=== PATIENT | male | born 1960 | race Caucasian/White ===

== ENCOUNTER 2019-08-16 10:13 | Outpatient (CLI) | payer OTHER, SELFPAY ==
--- NOTE | ~2019-08-16 | US_ITS ---
US soft tissue head and neck 08/16/2019 10:56 Indication: Supraclavicular swelling for one year Procedure: High-resolution bilateral supraclavicular soft tissue ultrasound Comparison: No prior studies for comparison. Findings: In the right supraclavicular region there are 2 lymph nodes measuring 9 x 8 x 4 and 10 x 7 x 4 mm respectively, both with normal fatty hilum. In the left supraclavicular region there is a lymp h node measuring 11 x 4 x 5 mm with fatty hilum. No fluid collections. Impression: 1: Normal-appearing bilateral supraclavicular lymph nodes which are likely benign reactive lymph node s in the absence of known malignancy. Consider correlation with contrast-enhanced CT neck. Reviewed, dictated and finalized at location A. SSORIES REPAIRER Impression: 1: Normal-appearing bilateral supraclavicular lymph nodes which are likely ruy gn reactive lymph nodes in the absence of known malignancy. Consider correlatio n with contrast-enhanced CT neck.
== END 2019-08-16 10:14 | disposition home or self-care (01) ==
LOC: ANHIMG 10:19
PROVIDERS: PCP Family Medicine Adolescent Medicine; Visit Provider Physician Assistant
DX: R22.2 Localized swelling, mass and lump, trunk (principal)
CPT/HCPCS: 76536

== ENCOUNTER 2020-02-04 12:55 | Outpatient (CLI) | payer OTHER, SELFPAY ==
--- NOTE | ~2020-02-04 | US_ITS ---
EXAMINATION: US renal BI DATE: 02/04/2020 13:31 INDICATION: Stage III chronic kidney disease. TECHNIQUE: Multiple ultrasound grayscale images of the kidneys were obtained. COMPARISON: CT dated 03/25/2019 FINDINGS: The right kidney measures 10.8 x 5.4 x 6.8 cm. The left kidney measures 10.3 x 4.8 x 5.0 cm. The kidn eys demonstrate normal echogenicity. Is cortical thinning at both kidneys, mild on the right and mode rate on the left. There is no hydronephrosis in either kidney. No stones identified. The bladder and prostate are unremarkable. IMPRESSION: 1. Bilateral renal cortical atrophy, mild on the right and moderate on the left. No hydronephrosis. Reviewed, dictated and finalized at location A. IMPRESSION: 1. Bilateral renal cortical atrophy, mild on the right and moderate on the lef t. No hydronephrosis.
== END 2020-02-04 12:56 | disposition home or self-care (01) ==
PROVIDERS: PCP Family Medicine Adolescent Medicine; Visit Provider Internal Medicine Nephrology
DX: N18.3 Chronic kidney disease, stage 3 (moderate) (principal); N26.1 Atrophy of kidney (terminal)
CPT/HCPCS: 76775

== ENCOUNTER 2020-03-30 11:12 | Outpatient (CLI) | payer OTHER, SELFPAY ==
--- NOTE | ~2020-03-30 | XR_ITS ---
XR hip RT min 2V DATE: 03/30/2020 11:39 INDICATION: Right hip pain, numbness. No injury. TECHNIQUE: AP, lateral, crosstable lateral views right hip COMPARISON: None FINDINGS: No fracture or dislocation, avascular necrosis or bone destruction of the right hip. Hip kera int space is well preserved. The pubic symphysis and included right sacroiliac joint are intact. IMPRESSION: No significant abnormality Reviewed, dictated and finalized at location A. IMPRESSION: No significant abnormality
== END 2020-03-30 11:13 | disposition home or self-care (01) ==
PROVIDERS: PCP Family Medicine Adolescent Medicine; Visit Provider Family Medicine Adolescent Medicine
DX: M25.551 Pain in right hip (principal)
CPT/HCPCS: 73502

== ENCOUNTER 2020-04-08 09:20 | Outpatient (CLI) | payer OTHER, SELFPAY ==
--- NOTE | ~2020-04-08 | MR_ITS ---
EXAMINATION: MR lumbar spine wo con DATE: 04/08/2020 10:03 INDICATION: Right leg paresthesias. Radiculopathy. Low back pain. TECHNIQUE: Magnetic resonance imaging (MRI) of the lumbar spine was performed without intravenous con trast. Sequences included sagittal T2-weighted FSE, sagittal T2-weighted FS FSE, sagittal T1-weighted FSE, and axial T2-weighted FSE. COMPARISON: None FINDINGS: There is 5 degrees levocurvature of lumbar spine. Vertebral body heights are normal. There is mildly decreased disc height at L3-L4. The distal spinal cord signal intensity is normal. The conu s medullaris is at L1. The following disc levels are specifically discussed: L1-L2: The disc does not extend beyond the endplate margin. There is mild bilateral facet joint osteo arthritis. There is no neural foraminal stenosis. There is no central canal stenosis. L2-L3: The disc is mildly bulging. There is mild bilateral facet joint osteoarthritis. There is mild bilateral neural foraminal stenosis. There is no central canal stenosis. L3-L4: The disc is bulging and has an annular fissure. There is moderate bilateral facet joint osteoa rthritis. There is mild bilateral neural foraminal stenosis. There is mild central canal stenosis. L4-L5: The disc is bulging. There is severe bilateral facet joint osteoarthritis. There is mild bilat eral neural foraminal stenosis. There is mild central canal stenosis. L5-S1: The disc is bulging. There is severe right and moderate left facet joint osteoarthritis. There is mild bilateral neural foraminal stenosis. There is mild central canal stenosis. IMPRESSION: 1. Mild lumbar spondylosis. Reviewed, dictated and finalized at location A. IMPRESSION: 1. Mild lumbar spondylosis.
== END 2020-04-08 09:21 | disposition home or self-care (01) ==
PROVIDERS: PCP Family Medicine Adolescent Medicine; Visit Provider Physician Assistant
DX: R20.2 Paresthesia of skin (principal); M47.26 Other spondylosis with radiculopathy, lumbar region
CPT/HCPCS: 72148

== ENCOUNTER 2020-08-05 10:24 | Outpatient (CLI) | payer OTHER, SELFPAY ==
--- NOTE | 2020-08-05 11:00 | NEURO_ITS ---
Impression: # Complains of numbness of lower extremities. # Bilateral peroneal neuropathy. # Abnormal needle/EMG exam in bilateral EDB. # Clinical correlation recommended; Higher involvement needs to be ruled out. Nerve Conduction Studies Anti Sensory Summary Table Stim Site NR Peak (ms) P-T Amp (?V) Site1 Site2 Delta-P (ms) Dist (cm) Darinel (m/s) Left Sup Fibular Anti Sensory (Ant Lat Mall) DISPERSED RESPONSE 14 cm NR 14 cm Ant Lat Mall 16.0 Right Sup Fibular Anti Sensory (Ant Lat Mall) 14 cm 6.7 19.5 14 cm Ant Lat Mall 6.7 16.0 24 Left Sural Anti Sensory (Lat Mall) NO RESPONSE Calf NR Calf Lat Mall 16.0 Right Sural Anti Sensory (Lat Mall) Calf 6.0 8.3 Calf Lat Mall 6.0 16.0 27 Motor Summary Table Stim Site NR Onset (ms) O-P Amp (mV) Site1 Site2 Delta-0 (ms) Dist (cm) Darinel (m/s) Left Peroneal Motor (Vastus Med) NO RESPONSE Ankle NR Popit Ankle 0.0 Popit NR Right Peroneal Motor (Vastus Med) NO RESPONSE Ankle NR Popit Ankle 0.0 Popit NR Left Tibial Motor (Abd Agosto Brev) Ankle 5.1 6.1 Knee Ankle 10.2 43.0 42 Knee 15.3 3.7 Right Tibial Motor (Abd Agosto Brev) Ankle 4.8 4.7 Knee Ankle 10.2 44.0 43 Knee 15.0 3.4 F Wave Studies NR F-Lat (ms) L-R F-Lat (ms) Left Peroneal (Mrkrs) (EDB) 58.83 3.86 Right Peroneal (Mrkrs) (EDB) 62.69 3.86 Left Tibial (Mrkrs) (Abd Hallucis) 57.31 0.03 Right Tibial (Mrkrs) (Abd Hallucis) 57.35 0.03 EMG Side Muscle Nerve Root Ins Act Fibs Amp Dur Recrt Comment Right AntTibialis Dp Br Fibular L4-5 Nml Nml Nml Nml Nml Right Gastroc Tibial S1-2 Nml Nml Nml Nml Nml Right Fibularis Long Sup Br Fibular L5-S1 Nml Nml Nml Nml Nml Right Flex Dig Long Tibial L5-S2 Nml Nml Nml Nml Nml Right Ext Dig Brev Dp Br Fibular L5, S1 Nml Nml Nml Nml Reduced Left AntTibialis Dp Br Fibular L4-5 Nml Nml Nml Nml Nml Left Gastroc Tibial S1-2 Nml Nml Nml Nml Nml Left Fibularis Long Sup Br Fibular L5-S1 Nml Nml Nml Nml Nml Left Flex Dig Long Tibial L5-S2 Nml Nml Nml Nml Nml Left Ext Dig Brev Dp Br Fibular L5, S1 Nml Nml Nml Nml Reduced Right QuadratusFem QuadFemoris L4-5, S1 Nml Nml Nml Nml Nml Left QuadratusFem QuadFemoris L4-5, S1 Nml Nml Nml Nml Nml MTDD
== END 2020-08-05 10:25 | disposition home or self-care (01) ==
LOC: ANHNEURO 10:25
PROVIDERS: PCP Family Medicine Adolescent Medicine; Visit Provider Psychiatry & Neurology Neurology
DX: R20.2 Paresthesia of skin (principal); G62.9 Polyneuropathy, unspecified; R94.131 Abnormal electromyogram [EMG]
CPT/HCPCS: 95886; 95910

== ENCOUNTER 2020-09-07 11:59 | Outpatient (CLI) | payer OTHER, SELFPAY ==
--- NOTE | ~2020-09-07 | XR_ITS ---
XR lumbar spine 2-3V DATE: 09/07/2020 12:27 INDICATION: Low back pain radiating to right hip TECHNIQUE: AP, lateral, coned lateral lumbosacral views COMPARISON: 04/08/2020 MRI lumbar spine FINDINGS: Slight levoscoliosis. There is mild degenerative disc disease and moderate spurring of the lumbar spine. No fracture or bone destruction. The lumbar pedicles are intact. No spondylolisthesis. The sacroiliac joints appear normal. IMPRESSION: Mild degenerative disc disease Reviewed, dictated and finalized at location A.
== END 2020-09-07 12:00 | disposition home or self-care (01) ==
PROVIDERS: PCP Family Medicine Adolescent Medicine; Visit Provider Psychiatry & Neurology Neurology
DX: M51.36 Other intervertebral disc degeneration, lumbar region (principal)
CPT/HCPCS: 72100

== ENCOUNTER 2020-10-21 09:59 | Emergency (ER) | payer OTHER, SELFPAY ==
--- NOTE | ~2020-10-21 | XR_ITS ---
EXAMINATION: XR elbow LT min 3V EXAM DATE: 10/21/2020 10:16 INDICATION: Fall one week ago. Left elbow pain. Initial encounter. TECHNIQUE: Left elbow frontal, lateral with flexion, and oblique projections obtained and reviewed. There is no prior study for comparison. FINDINGS: Left elbow anterior humeral line intact. There are no acute fractures or dislocations bal ntified. There is no subcutaneous gas. There is soft tissue swelling over the elbow posterior medial ly. There are no radiopaque foreign bodies. IMPRESSION: 1. Left elbow exam without acute osseous findings. 2. Soft tissue swelling. Reviewed, dictated and finalized at location A.
[2020-10-21 10:06] VITALS: BP 162/97; PULSE 67; RESP 16; TEMP 36.7; O2SAT 96
--- NOTE | 2020-10-21 10:43 | ED.UPPEXIN ---
HPI - Extremity Injury (Upper) General Chief Complaint: Extremity Injury, Upper Stated Complaint: L ARM INJURY Source: patient and RN notes reviewed Limitations: no limitations History of Present Illness HPI narrative: The right-handed patient, who is a smoker/nondrinker on several meds [not diabetics], presents with left elbow pain. Patient states he has a history and work-up for syncope and late last week, 5d ago had a typical episode where he slipped and struck his left elbow against his car-resulting in a dent. No bleeding, deformity, fever , redness/streaking, abscess/induration/fluctuance, skin abrasion known; he developed increasing pain and redness the last couple days-which is associated with definite small scab at the olecranon. Orthopedic is remarkable for on Vicodin for hip discomfort- and he says he doesn't get enough ; he has elbow pain disproportionate to appearance .Discussed possible causes with the patient [infectious, posttraumatic, etc.] will treat broadly with antibiotics and prompt follow-up with orthopedics [will be called]. Related Data Home Medications Medication Instructions Recorded Confirmed amlodipine 10/21/20 fenofibrate nanocrystallized mg PO 10/21/20 hydrocodone-acetaminophen 10/21/20 lisinopril 10/21/20 metoprolol tartrate 10/21/20 Allergies Allergy/AdvReac Type Severity Reaction Status Date / Time morphine Allergy Severe Unverified 03/14/17 18:56 Penicillins Allergy Unknown Verified 03/14/17 13:58 Review of Systems Review of Systems: Narrative: General/Constitutional: No weight loss,fever Eyes: N0: Redness,discharge Ears/Nose/Throat: No: Epistaxis,ear discharge Respiratory: Denies: Hemoptysis Gastrointestinal: No Vomiting, Bleeding-rectal Skin: No Lumps, REPORTS eruption Neurologic: No Focal Weakness,Sz Hematologic: Denies: Petechiae/Purpura Psychiatric: No: Suicida ideationl All Other Systems: Reviewed and Negative [facility] Family History Family History (Updated 03/22/17 @ 14:50 by DOCTOR UNKNOWN) Other Diabetes mellitus Hypertension Social History Social History Smoking status: Current every day smoker Alcohol intake: never Comments At time of signature, agree with nursing past medical, surgical, social and family history. There is no relevant family history pertinent to the presenting complaint Exam Narrative: Exam Narrative: General Appearance: aged/older appearing, Well nourished, No distress EYE: PERRLA, EOMI, Conjunctiva clear Ears: External ear normal, Auditory canal normal Nose: Normal nose, Nares clear Mouth/Throat: Normal appearing, Normal lips Neck: Supple Respiratory: Airway patent, No respiratory distress Skin: Palm-sized areas very mild redness with central dry scabbing at olecranon; otherwise warm, Dry, Normal color MS elbow: Normal strength (mostly intact, limited flexion/extension by pain), Tenderness (olecranon, with mod decreased ROM), Swelling (olecrenon), Other (no anterior drawer, no collateral laxity, ) Neurological: A&O x3, Speech clear, CN II-XII intact Psychiatric: Normal mood, Normal affect Course Course Emergency Course: Films visualized, interpreted by radiologist, agree, normal see report [provided the patient]. Vital Signs Vital signs: Vital Signs Temperature 98.1 F 10/21/20 10:06 Pulse Rate 67 10/21/20 10:06 Respiratory Rate 16 10/21/20 10:06 Blood Pressure 162/97 H 10/21/20 10:06 Pulse Oximetry 96 10/21/20 10:06 Temperature 98.1 F 10/21/20 10:06 Pulse Rate 67 10/21/20 10:06 Respiratory Rate 16 10/21/20 10:06 Blood Pressure 162/97 H 10/21/20 10:06 Pulse Oximetry 96 10/21/20 10:06 Discharge Plan Discharge Clinical Impression: Olecranon bursitis, Hx of syncope, Cellulitis Patient Disposition: Home, Self-Care Condition: Stable Instructions: Antibiotic Form, Elbow Bursitis (ED) Additional Instructions: See orthopedics without fail, call to conf
[2020-10-21] MEDS: cefTRIAXone 1 GM VIAL 0.75 GM IM (11:00)
== END 2020-10-21 11:26 | disposition home or self-care (01) ==
PROVIDERS: Emergency Provider Emergency Medicine; PCP Family Medicine Adolescent Medicine
DX: M70.22 Olecranon bursitis, left elbow (principal); L03.114 Cellulitis of left upper limb; F17.200 Nicotine dependence, unspecified, uncomplicated
CPT/HCPCS: 73080; 96372; 99213; A4565; G0463; J0696

== ENCOUNTER 2021-01-02 18:33 | Emergency (ER) | payer OTHER, SELFPAY ==
[2021-01-02 18:36] VITALS: BP 156/85; PULSE 67; RESP 16; TEMP 36.8; O2SAT 98
--- NOTE | 2021-01-02 18:36 | ED.EYEPROB ---
HPI - Eye Problem General Chief complaint: Eye Problems Stated complaint: eye redness/swelling Time Seen by Provider: 01/02/21 18:36 Source: patient and RN notes reviewed History of Present Illness HPI Narrative: Patient is a 60-year-old male who presents the urgent care with complaints of left eye swelling and redness. Patient states that it started on Monday and he has been using a warm compress to the eye. Patient reports of some matting and clear drainage. Patient denies any vision changes. Denies of any known trauma or injury to the eye. Denies any fever, chills, nausea, vomiting. No other acute complaints. No acute distress noted. Patient aware of the plan of care. Some parts of this dictation were generated by voice recognition software and may contain typographical and/or grammatical inaccuracies. Related Data Home Medications Medication Instructions Recorded Confirmed amlodipine 10/21/20 12/29/20 fenofibrate nanocrystallized mg PO 10/21/20 12/29/20 hydrocodone-acetaminophen 10/21/20 12/29/20 lisinopril 10/21/20 12/29/20 metoprolol tartrate 10/21/20 12/29/20 aspirin 81 mg tablet,delayed 81 mg PO DAILY 10/30/20 12/29/20 release Allergies Allergy/AdvReac Type Severity Reaction Status Date / Time morphine Allergy Severe Unknown Verified 12/29/20 11:00 Penicillins Allergy Unknown Unknown Verified 12/29/20 11:00 Review of Systems Review of Systems: Narrative: CONSTITUTIONAL: Denies fever, chills, or sweats. EYES: Denies visual changes. Reports of left upper eyelid swelling, redness and clear drainage ENT: Denies rhinorrhea, congestion, sore throat, or otalgia. CARDIOVASCULAR: Denies chest pain, palpitations, or edema. RESPIRATORY: Denies cough or dyspnea. GASTROINTESTINAL: Denies abdominal pain, nausea, vomiting, or diarrhea. GENITOURINARY: Denies dysuria or hematuria. SKIN: Denies rash or itching. MUSCULOSKELETAL: Denies back pain, joint pain, or myalgia. NEUROLOGIC: Denies headache, numbness, or weakness. All other systems reviewed are negative, except as documented in HPI. [facility] Past Medical History Medical History Coughing Dizziness Hair loss High cholesterol History of DVT (deep vein thrombosis) Hypertension Kidney disease Olecranon bursitis of left elbow SOB (shortness of breath) Stroke Wears glasses Weight gain Wheezing Family History Family History Other Cerebrovascular accident Diabetes mellitus Heart disease High cholesterol Hypertension Kidney disorder Social History Social History Smoking packs per day: 1 Smoking cigarettes per day: 20.0 Years smoked: 40 Smoking pack-years: 40.00 Tobacco type: cigarettes Alcohol intake: never Substance use: former Substance use type: does not use and crack/cocaine Gender identity (if verbalized by the patient): Male Comments At the time of my signature, I reviewed and agree with the nursing past medical, surgical, social, and family history. There is no relevant family history pertinent to the patient complaint. Exam Narrative: Exam Narrative: GENERAL: This is a well-nourished, well-developed patient, in no apparent distress. HEAD: normocephalic, atraumatic. EYES: PERRL. Sclera clear/white. Vision is grossly intact. Mild to moderate edema and erythema noted to the left upper eyelid with a notable external hordeolum to the center of the left upper eyelid. Moderate clear drainage from the left eye. No obvious injury noted EARS: External ears normal NOSE: External nose normal with no obvious nasal discharge, nares without redness, no rhinorrhea. THROAT: Mucous membranes moist NECK: Neck supple CARDIOVASCULAR: Regular rate and rhythm RESPIRATORY: Clear to auscultation. Breath sounds equal bilaterally. No wheezes, rales, or rhonchi. SKIN: warm, intact
== END 2021-01-02 18:50 | disposition home or self-care (01) ==
PROVIDERS: Emergency Provider Nurse Practitioner Family; PCP Family Medicine Adolescent Medicine
DX: H05.012 Cellulitis of left orbit (principal); H00.014 Hordeolum externum left upper eyelid; F17.210 Nicotine dependence, cigarettes, uncomplicated; E78.00 Pure hypercholesterolemia, unspecified; Z86.73 Personal history of transient ischemic attack (TIA), and cerebral infarction without residual deficits
CPT/HCPCS: 99213; G0463

== ENCOUNTER 2021-04-27 10:34 | Outpatient (CLI) | payer OTHER, SELFPAY ==
--- NOTE | ~2021-04-27 | XR_ITS ---
EXAMINATION: XR chest 2V DATE: 04/27/2021 10:49 INDICATION: Shortness of breath TECHNIQUE: PA and lateral views of the chest are obtained. COMPARISON: 11/15/2016 FINDINGS: The lungs are free of acute opacities. There is no pleural effusion or pneumothorax. The ca rdiomediastinal silhouette is normal. There is moderate thoracic spondylosis. IMPRESSION: 1. No acute cardiopulmonary abnormality. Reviewed, dictated and finalized at location B.
== END 2021-04-27 10:35 | disposition home or self-care (01) ==
LOC: ANHIMG 10:39
PROVIDERS: PCP Family Medicine Adolescent Medicine; Visit Provider Physician Assistant
DX: R06.02 Shortness of breath (principal)
CPT/HCPCS: 71046

== ENCOUNTER 2021-04-30 23:15 | Inpatient (IN) | payer OTHER, SELFPAY ==
--- NOTE | ~2021-04-30 | XR_ITS ---
XR chest 1V portable DATE: 04/30/2021 23:35 INDICATION: Intermittent right chest pain for one day, worsening this evening. Hypertension. TECHNIQUE: Portable AP chest on 04/30/2021 at 2330 hours COMPARISON: 04/27/2021 PA and lateral chest FINDINGS: Borderline heart size. There is pulmonary vascular prominence and probable redistribution w hich may indicate pulmonary venous hypertension. There is mild/moderate elevation of the right diaphragm. No pulmonary infiltrate or consolidation, pleural effusion or pneumothorax. IMPRESSION: Borderline or increased heart size, pulmonary vascular congestion and redistribution. Mil d congestive changes are suggested Reviewed, dictated and finalized at location A. IMPRESSION: Borderline or increased heart size, pulmonary vascular congestion a nd redistribution. Mild congestive changes are suggested
[2021-04-30 23:12] VITALS: BP 183/99; PULSE 70; RESP 18; TEMP 36.4; O2SAT 94
--- NOTE | 2021-04-30 23:18 | ECG_ITS ---
Measurements Intervals [place] Rate: 69 P: 43 LA: 197 QRS: 1 QRSD: 97 T: -5 QT: 396 QTc: 426 Interpretive Statements SINUS RHYTHM POSSIBLE LEFT ATRIAL ENLARGEMENT DELAYED PRECORDIAL R/S TRANSITION ST ELEVATION IN SEPTAL LEADS WITH PEAKED T WAVES- CONSIDER ACUTE INJURY HIGH LATERAL ST ELEVATION MYOCARDIAL INJURY- ACUTE BASELINE ARTIFACT- I, II, III, AVR, AVL, AVF, V1-V6 ABNORMAL ECG Electronically Signed On 05-04-2021 7:48:06 PERCUSSION WELDING MACHINE OPERATOR by Navid Sinclair D.O.
[2021-04-30 23:26] VITALS: O2SAT 97
--- NOTE | 2021-04-30 23:27 | ED.CHESTPAIN ---
HPI - Chest Pain General Chief Complaint: Chest Pain Stated Complaint: r sided chest pain Source: RN notes reviewed History of Present Illness HPI narrative: Patient presents emergency department from home via EMS for chest pain. Patient states has been having intermittent chest pain since last night pain is located on the right side of the chest just to the right of the midline describes a pressure in nature states the pain got worse approximately 30 minutes ago. Associate with mild shortness of breath he denies any fevers or chills cough abdominal pain nausea vomiting denies any previous cardiac history states he has had a history of a previous stroke and is on aspirin patient states he did take his evening medication just before EMS arrival states he took his metoprolol Related Data Home Medications Medication Instructions Recorded Confirmed amlodipine 10/21/20 12/29/20 fenofibrate nanocrystallized mg PO 10/21/20 12/29/20 hydrocodone-acetaminophen 10/21/20 12/29/20 lisinopril 10/21/20 12/29/20 metoprolol tartrate 10/21/20 12/29/20 aspirin 81 mg tablet,delayed 81 mg PO DAILY 10/30/20 12/29/20 release Allergies Allergy/AdvReac Type Severity Reaction Status Date / Time morphine Allergy Severe Unknown Verified 04/30/21 23:38 Penicillins Allergy Unknown Unknown Verified 04/30/21 23:38 Review of Systems Review of Systems: Gen.: Denies fevers or chills ENT: Denies congestion Respiratory: Denies shortness of breath or cough CV: See HPI GI: Denies abdominal pain nausea, emesis or diarrhea Musculoskeletal: Denies back pain or muscle pain Neuro: Denies numbness, tingling, weakness or focal weakness Skin: Denies rash Except as documented, all other systems reviewed and negative [facility] Past Medical History Medical History Coughing Dizziness Hair loss High cholesterol History of DVT (deep vein thrombosis) Hypertension Kidney disease Olecranon bursitis of left elbow SOB (shortness of breath) Stroke Wears glasses Weight gain Wheezing Family History Family History Other Cerebrovascular accident Diabetes mellitus Heart disease High cholesterol Hypertension Kidney disorder Social History Social History Smoking packs per day: 1 Smoking cigarettes per day: 20.0 Years smoked: 40 Smoking pack-years: 40.00 Tobacco type: cigarettes Alcohol intake: never Substance use: former Substance use type: does not use and crack/cocaine Gender identity (if verbalized by the patient): Male Exam Narrative: APPEARANCE: No acute distress, nontoxic, resting in bed EYES: EOMI HEENT: Normocephalic, atraumatic, OMM RESPIRATORY: No respiratory distress Clear to auscultation bilaterally with no rhonchi wheezing or rales. CARDIOVASCULAR: Regular rate and rhythm without murmurs rubs or gallops. ABDOMINAL: Soft, nontender, nondistended, no rebound or guarding MUSCULOSKELETAl: Moves all extremities. No clubbing, cyanosis or edema. NEURO: Awake and alert. Following commands, speech normal, no focal deficits SKIN:: Warm, dry. No rashes lesions or abrasions PSYCHIATRIC: Normal affect/mood, Course Course Emergency Course: Code STEMI declared upon evaluation of initial EKG Called and discussed Dr. Clement will come to ED to take patient to [facility] request patient received heparin in ED Patient and family updated on plan for [facility] all questions answered Vital Signs Vital signs: Vital Signs Temperature 97.6 F 04/30/21 23:12 Pulse Rate 70 04/30/21 23:12 Respiratory Rate 18 04/30/21 23:12 Blood Pressure 183/99 H 04/30/21 23:12 Pulse Oximetry 94 04/30/21 23:12 Temperature 97.6 F 04/30/21 23:12 Pulse Rate 74 04/30/21 23:49 Respiratory Rate 18 04/30/21 23:49 Blood Pressure 167/110 H 04/30/21 23:49 Pulse Oximetry 98
[2021-04-30] MEDS: ASPIRIN 81 MG CHEWABLE TABLET 324 MG PO (23:29)
[2021-04-30 23:35] LABS: Basophils Percent Auto 0.5 % (0.2-1.2); Eosinophils Absolute Auto 0.2 K/mm3 (0-0.3); Hematocrit 49.5 % (42.0-52.0); Hemoglobin 16.5 g/dL (14.0-18.0); Immature Granulocyte Absolute 0.03 K/mm3 (0.00-0.031); Immature Granulocyte Percent A 0.4 % (0-0.5); Lymphocytes Absolute Auto 3.42 K/mm3 (0.9-3.2); Lymphocytes Percent Auto 44.8 % (18.3-44.2); Mean Corpuscular HGB Conc 33.3 g/dl (32-36); Mean Corpuscular Hemoglobin 31.1 pg (26-34); Mean Corpuscular Volume 93.4 fl (80-100); Mean Platelet Volume 10.4 fl (7.4-10.4); Monocytes Absolute Auto 0.8 K/mm3 (0.1-0.6); Monocytes Percent Auto 9.9 % (2.6-8.5); Neutrophils Absolute Auto 3.2 K/mm3 (1.3-6.7); Neutrophils Percent Auto 42.4 % (45.5-73.1); Platelet Count Result 269 k/mm3 (150-375); Red Cell Distribution Width 13.6 % (11.5-14.5); White Blood Count 7.6 K/mm3 (4.5-10.0)
[2021-04-30 23:41] VITALS: BP 181/96; PULSE 64; RESP 22; O2SAT 98
[2021-04-30 23:48] LABS: Alanine Aminotransferase 24 U/L (4-50); Alkaline Phosphatase 70 U/L (38-126); Anion Gap 13 mmol/L (8-16); Aspartate Amino Transferase 29 U/L (17-59); Bilirubin,Total 0.5 mg/dL (0.2-1.3); Blood Urea Nitrogen 30 mg/dL (9-20); Carbon Dioxide 22 mmol/L (22-30); Chloride 106 mmol/L (98-107); Estimated CRCL calculation 46 ml/min; Estimated Glomerular Filt Rate 34; Glucose 119 mg/dL (65-110); Potassium 3.9 mmol/L (3.4-5.0); Sodium 141 mmol/L (137-145)
[2021-04-30 23:49] VITALS: BP 167/110; PULSE 74; RESP 18; O2SAT 98
[2021-04-30] MEDS: MORPHINE SULFATE (*CRX) 2 MG/ML INJ IV PUSH (23:53)
[2021-04-30 23:59] LABS: Prothrombin Time 13.2 Seconds (11.1-14.7)
[2021-05-01] VITALS (23 sets, daily range): BP systolic 102–166; BP diastolic 72–99; PULSE 55–73; RESP 12–24; TEMP 36.3–37.2; O2SAT 93–98; BMI 30.3
[2021-05-01] LABS: Partial Thromboplastin Time 26.4 SECONDS (22.3-36.8)
[2021-05-01 00:06] LABS: Troponin I 0.084 ng/mL (0.000-0.034)
--- NOTE | 2021-05-01 00:10 | WPDHPUPDATE1 ---
History and Physical Update Update Date/Time: 05/01/21 00:10 History and Physical has been reviewed, including an updated exam of the patient. There are NO changes in the patient's condition. Risks, benefits, and alternatives have been discussed and questions answered. Patient agrees to proceed with procedure.
--- NOTE | 2021-05-01 00:10 | WPDMODSED ---
Moderate Sedation Note-Pt Data Patient Data Allergies Allergy/AdvReac Type Severity Reaction Status Date / Time morphine Allergy Severe Unknown Verified 04/30/21 23:38 Penicillins Allergy Unknown Unknown Verified 04/30/21 23:38 Home Medications Medication Instructions Recorded Confirmed Type acetaminophen-codeine 1 - 2 tablet PO HS PRN #10 tablet 10/21/20 12/29/20 Rx amlodipine 10/21/20 12/29/20 History fenofibrate nanocrystallized mg PO 10/21/20 12/29/20 History hydrocodone-acetaminophen 10/21/20 12/29/20 History lisinopril 10/21/20 12/29/20 History metoprolol tartrate 10/21/20 12/29/20 History tramadol 50 - 75 mg PO TID PRN #15 tablet 10/21/20 12/29/20 Rx aspirin 81 mg tablet,delayed 81 mg PO DAILY 10/30/20 12/29/20 History release doxycycline hyclate 100 mg capsule 100 mg PO BID #20 cap 12/01/20 12/29/20 Rx clindamycin HCl 300 mg PO Q6H 7 Days #28 cap 01/02/21 Rx polymyxin B sulf-trimethoprim 1 drp LEFT EYE Q3H 7 Days #10 ml 01/02/21 Rx [Polytrim] Sedation/Anesthesia: No previous sedation/anesthesia problems (including family history). [facility] Past Medical History Medical History Coughing Dizziness Hair loss High cholesterol History of DVT (deep vein thrombosis) Hypertension Kidney disease Olecranon bursitis of left elbow SOB (shortness of breath) Stroke Wears glasses Weight gain Wheezing Family History Family History Other Cerebrovascular accident Diabetes mellitus Heart disease High cholesterol Hypertension Kidney disorder Social History Social History Smoking packs per day: 1 Smoking cigarettes per day: 20.0 Years smoked: 40 Smoking pack-years: 40.00 Tobacco type: cigarettes Alcohol intake: never Substance use: former Substance use type: does not use and crack/cocaine Gender identity (if verbalized by the patient): Male Mod Sed Physical Exam Physical Exam Pre Procedural Exam: Normal: Appearance, Eyes, Ears, Nose, Neck, Throat, Airway, Lungs, Heart Size, Heart Rate, Heart Rhythm, Neuro Exam, Abdomen, Liver, Kidneys, Spleen, Breasts, Genitalia, Extremities and Skin Hours since solid foods: 8 Hours since liquid intake: 8 Mallampati Classification: class 1 Internal Medicine - PN: Obj Da Vital Signs Vital Signs: Vital Signs - 24 hr 04/30/21 23:12 04/30/21 23:26 04/30/21 23:41 Temperature 36.4 C Pulse Rate 70 64 Respiratory Rate 18 22 H Blood Pressure 183/99 H 181/96 H Pulse Oximetry 94 97 98 04/30/21 23:49 Temperature Pulse Rate 74 Respiratory Rate 18 Blood Pressure 167/110 H Pulse Oximetry 98 Meds/Results Radiology Results: ITS Impressions Chest X-Ray 04/30/21 23:36 IMPRESSION: Borderline or increased heart size, pulmonary vascular congestion and redistribution. Mild congestive changes are suggested Labs CBC & Chem 7: 04/30/21 23:30 04/30/21 23:30 Labs: Laboratory Results - last 24 hr 04/30/21 04/30/21 04/30/21 23:30 23:30 23:30 WBC 7.6 RBC 5.30 Hgb 16.5 Hct 49.5 MCV 93.4 MCH 31.1 MCHC 33.3 RDW 13.6 Plt Count 269 MPV 10.4 Immature Gran % (Auto) 0.4 Neut % (Auto) 42.4 L Lymph % (Auto) 44.8 H Archuleta % (Auto) 9.9 H Eos % (Auto) 2.0 Baso % (Auto) 0.5 Lymph # (Auto) 3.42 H Archuleta # (Auto) 0.8 H Eos # (Auto) 0.2 Baso # (Auto) 0.0 Abs Immat Gran (auto) 0.03 Absolute Neuts (auto) 3.2 Absolute Nucleated RBC 0.0 Nucleated RBC % 0.0 PT 13.2 INR 1.0 APTT 26.4 Sodium 141 Potassium 3.9 Chloride 106 Carbon Dioxide 22 Anion Gap 13 BUN 30 H Creatinine 2.00 H Estim Creat Clear Calc 46 Estimated GFR 34 L Glucose 119 H Calcium 10.0 Total Bilirubin 0.5 AST 29 ALT 24 Alkaline Phosphatase 70 Troponin I
--- NOTE | 2021-05-01 00:10 | WPDCARDPROC ---
Cardiac Cath Procedure Note Date of procedure:: 05/01/21 Performing physician:: Kallie Coffey MD date of service 05/01/2021 Indication:: anterior STEMI Brief clinical history:: 61-year-old patient with history of tobacco use, stroke and chronic kidney disease stage 3 with creatinine of 2 who presents here for chest pain that started 1 day however it has increased in the last 1 hour in severity. his pain is in the right side of the chest. Associated with shortness of breath. Was found to have ST elevations in leads V1, V2, V3. Patient arrived on the labor representative table and while he was in the labor representative table went into ventricular fibrillation and successfully defibrillated using 200 joule shock with baptism of normal sinus rhythm and baptism of mental status. Was given amiodarone 150 mg IV bolus. Procedure Procedure performed:: 2-Selective left and right coronary angiogram. 3-Left heart catheterization with measurement of LVEDP and measurement of gradient across aortic valve. 4 deployment of a drug-eluting stent 2.75 x 18 covering mid LAD. Deployment under nominal pressure for 26 seconds. Post dilatation of the proximal and mid stent using 3 x 8 noncompliant balloon. 4-Right common femoral arterial angiogram. 5-Deployment of 6 Burmese Angio-Seal. Sedation/Medication given:: Moderate sedation. Access site:: Right common femoral artery. Estimated blood loss:: 10cc Procedure note:: After informed consent patient was brought in to labor representative with the was draped and prepped in usual manner. Moderate sedation was given and the right groin was infiltrated using 1% lidocaine. six Burmese sheath was obtained using micropuncture needle and the modified Seldinger technique. Selective left coronary angiogram was done using Guide catheter CLS 3.5with the tip of the catheter placed in the left main coronary artery. after that the coronary wire was advanced to distal LAD and balloon angioplasty of mid LAD was done using 2.5 by 15 balloon with 2 inflations each and intervention for 15 seconds. after that deployed a drug-eluting stent 2.75 x 18 under normal pressure for 26 seconds and then post dilatation of the stent using 3 x 8 noncompliant balloon with inflation under normal pressure for 25 seconds each. Selective right coronary angiogram was done using JR4 catheter with the tip of the catheter placed to the right coronary artery. After that 5 Burmese pigtail catheter was advanced across the aortic valve into the left ventricle with measurement of LVEDP and measurement of gradient across aortic valve. Right common femoral arterial angiogram was done. Findings:: 1- left coronary artery is a large artery that divides into large LAD, large circumflex artery. Left mainHas distal 40% lesion. 2- left anterior descending artery is a large artery that runs and wraps around the apex. in the mid segment there is a tight about 95% lesion with LETICIA flow 2 in the LAD. Distal LAD is diffusely disease 60%. 3- leftcircumflex artery is a large artery And dominant. Diffuse irregularities. Small OM1 branch that has diffuse proximal 70% and medium-size OM2 that has mid 80%. Left PDA has about 50-60% lesion. 4- right coronary artery is Small artery and non dominant and has diffuse 70% stenosis. 5- LVEDP was 25 mm Hg and no gradient across aortic valve. 6- opening arterial pressure was 160/80and closing pressure was 130/70 7- right femoral artery angiogram shows no significant disease in the right common femoral artery. Conclusion:: 1- Successful stenting of mid LAD using drug-eluting stent culprit lesion for the STEMI. 2- diffuse disease distal LAD 60-70%, artery size is relatively small. 3- high grades or OM1 branch, medium-sized OM2 branch. 50% left PDA 4- High-grade stenosis in nondominant RCA Assessment and Plan Additional Plan - continue aspirin and Brilinta. - aggressive risk factor modification for CAD. - tobacco cessation
--- NOTE | 2021-05-01 00:13 | PM.IMHP ---
H&P: HPI History of Present Illness Date/Time: 05/01/21 00:13 Date of service [birth year] 01, 2000 Chief Complaint: chest pain Narrative: 61-year-old patient with history of tobacco use, stroke and chronic kidney disease stage 3 with creatinine of 2 who presents here for chest pain that started 1 day however it has increased in the last 1 hour in severity. his pain is in the right side of the chest. Associated with shortness of breath. Was found to have ST elevations in leads V1, V2, V3. Patient arrived on the phlebotomist medical lab assistant table and while he was in the phlebotomist medical lab assistant table went into ventricular fibrillation and successfully defibrillated using 200 joule shock with holiness of normal sinus rhythm and holiness of mental status. Was given amiodarone 150 mg IV bolus. Review of Systems Review of Systems: All systems reviewed & are unremarkable except as noted in HPI and below Constitutional: Constitutional: Denies chills, Denies fatigue, Denies fever(s), Denies headache(s) and Denies snoring Eyes: Eyes: Denies eye discharge and Denies loss of vision ENT: Denies dizziness, Denies headache(s), Denies nasal discharge and Denies sore throat Cardiovascular: Cardiovascular: Reports as per HPI, Reports chest pain, Denies syncope, Denies rapid heart rate, Denies leg edema, Reports dyspnea, Reports dyspnea on exertion, Denies orthopnea and Denies paroxysmal nocturnal dyspnea Respiratory: Respiratory: Denies chest congestion, Denies cough, Reports dyspnea, Reports dyspnea on exertion, Denies snoring and Denies wheezing Gastrointestinal: Gastrointestinal: Denies abdominal pain, Denies diarrhea, Denies nausea and Denies vomiting Genitourinary: Genitourinary: Denies hematuria, Denies dysuria, Denies flank pain and Denies urinary frequency Musculoskeletal: Musculoskeletal: Denies myalgias, Denies arthralgias and Denies joint swelling Neurologic: Denies Abnormal speech present, Denies dizziness, Denies syncope, Denies headache(s), Denies focal weakness and Denies loss of vision Psychiatric: Psychiatric: Denies anxiety and Denies depression Endocrine: Endocrine: Denies cold intolerance, Denies fatigue and Denies heat intolerance Hematologic/Lymphatic: Hematologic/Lymphatic: Denies easy bleeding and Denies easy bruising Allergic/Immunologic: Allergic/Immunologic: Denies urticaria and Denies wheezing PMFSH Past Medical History Medical History Coughing Dizziness Hair loss High cholesterol History of DVT (deep vein thrombosis) Hypertension Kidney disease Olecranon bursitis of left elbow SOB (shortness of breath) Stroke Wears glasses Weight gain Wheezing Family History Family History Other Cerebrovascular accident Diabetes mellitus Heart disease High cholesterol Hypertension Kidney disorder Social History Social History Smoking packs per day: 1 Smoking cigarettes per day: 20.0 Years smoked: 40 Smoking pack-years: 40.00 Tobacco type: cigarettes Alcohol intake: never Substance use: former Substance use type: does not use and crack/cocaine Gender identity (if verbalized by the patient): Male Meds Home Medications and Allergies Home Medications Medication Instructions Recorded Confirmed Type acetaminophen-codeine 1 - 2 tablet PO HS PRN #10 tablet 10/21/20 12/29/20 Rx amlodipine 10/21/20 12/29/20 History fenofibrate nanocrystallized mg PO 10/21/20 12/29/20 History hydrocodone-acetaminophen 10/21/20 12/29/20 History lisinopril 10/21/20 12/29/20 History metoprolol tartrate 10/21/20 12/29/20 History tramadol 50 - 75 mg PO TID PRN #15 tablet 10/21/20 12/29/20 Rx aspirin 81 mg tablet,delayed 81 mg PO DAILY 10/30/20 12/29/20 History release doxycycline hyclate 100 mg capsule 100 mg PO BID #20 cap 12/01/20 12/29/20 Rx clindamycin HCl 300 mg PO Q6
--- NOTE | 2021-05-01 01:48 | ECG_ITS ---
Measurements Intervals [place] Rate: 60 P: 58 NM: 204 QRS: 29 QRSD: 101 T: 64 QT: 440 QTc: 442 Interpretive Statements SINUS RHYTHM SUPRAVENTRICULAR TRIGEMINY DELAYED PRECORDIAL R/S TRANSITION BORDERLINE ST-T WAVE ABNORMALITY- ANTEROLAT/INF LEADS BASELINE ARTIFACT- I, II, III, AVR, AVL, AVF, V1-V6 ABNORMAL ECG Electronically Signed On 05-01-2021 8:32:30 CDT by Navid Sinclair D.O.
[2021-05-01] MEDS: ONDANSETRON INJ 4 MG/2 ML VIAL (01:52)
--- NOTE | 2021-05-01 02:59 | WPDHPUPDATE1 ---
History and Physical Update Update Date/Time: 05/01/21 02:59 History and Physical has been reviewed, including an updated exam of the patient. There are NO changes in the patient's condition. Risks, benefits, and alternatives have been discussed and questions answered. Patient agrees to proceed with procedure.
--- NOTE | 2021-05-01 03:00 | WPDMODSED ---
Moderate Sedation Note-Pt Data Patient Data Allergies Allergy/AdvReac Type Severity Reaction Status Date / Time morphine Allergy Severe Unknown Verified 04/30/21 23:38 Penicillins Allergy Unknown Unknown Verified 04/30/21 23:38 Home Medications Medication Instructions Recorded Confirmed Type acetaminophen-codeine 1 - 2 tablet PO HS PRN #10 tablet 10/21/20 12/29/20 Rx amlodipine 10/21/20 12/29/20 History fenofibrate nanocrystallized mg PO 10/21/20 12/29/20 History hydrocodone-acetaminophen 10/21/20 12/29/20 History lisinopril 10/21/20 12/29/20 History metoprolol tartrate 10/21/20 12/29/20 History tramadol 50 - 75 mg PO TID PRN #15 tablet 10/21/20 12/29/20 Rx aspirin 81 mg tablet,delayed 81 mg PO DAILY 10/30/20 12/29/20 History release doxycycline hyclate 100 mg capsule 100 mg PO BID #20 cap 12/01/20 12/29/20 Rx clindamycin HCl 300 mg PO Q6H 7 Days #28 cap 01/02/21 Rx polymyxin B sulf-trimethoprim 1 drp LEFT EYE Q3H 7 Days #10 ml 01/02/21 Rx [Polytrim] Current Medications: Active Medications Hydrocodone Bitart/Acetaminophen (Hydrocodone/Acetaminophen (*Crx) 5-325 Mg Tablet) 1 tab PO Q4-6H PRN PRN Reason: Pain Rated 1-3 Al Hydrox/Mg Hydrox/Simethicone (Mag Hydrox/Al Hydrox/Simeth 30 Ml Udc) 30 ml PO Q4H PRN PRN Reason: Indigestion Aspirin (Aspirin 81 Mg Enteric Tablet) 81 mg PO QAM SHIRA Atorvastatin Calcium (Atorvastatin 40 Mg Tablet) 40 mg PO DAILY SHIRA Sodium Chloride (Normal Saline Iv) 1,000 mls @ 125 mls/hr IV CONT .Q8H ONE Stop: 05/01/21 09:47 Nitroglycerin (Nitroglycerin Sl 0.4 Mg Tablet) 0.4 mg SUBLINGUAL Q5MIN PRN PRN Reason: Chest Pain Ondansetron HCl (Ondansetron Hcl Odt 4 Mg Tablet) 4 mg PO Q4-6H PRN PRN Reason: Nausea Stop: 05/02/21 01:47 SERVICE [employer] CONTACT Ticagrelor (Ticagrelor 90 Mg Tablet) 90 mg PO Q12HR [facility] Sedation/Anesthesia: No previous sedation/anesthesia problems (including family history). [facility] Past Medical History Medical History Coughing Dizziness Hair loss High cholesterol History of DVT (deep vein thrombosis) Hypertension Kidney disease Olecranon bursitis of left elbow SOB (shortness of breath) Stroke Wears glasses Weight gain Wheezing Family History Family History Other Cerebrovascular accident Diabetes mellitus Heart disease High cholesterol Hypertension Kidney disorder Social History Social History Smoking packs per day: 1 Smoking cigarettes per day: 20.0 Years smoked: 40 Smoking pack-years: 40.00 Tobacco type: cigarettes Alcohol intake: never Substance use: former Substance use type: does not use and crack/cocaine Gender identity (if verbalized by the patient): Male Mod Sed Physical Exam Physical Exam Pre Procedural Exam: Normal: Appearance, Eyes, Ears, Nose, Neck, Throat, Airway, Lungs, Heart Size, Heart Rate, Heart Rhythm, Neuro Exam, Abdomen, Liver, Kidneys, Spleen, Breasts, Genitalia, Extremities and Skin Hours since solid foods: 8 Hours since liquid intake: 8 Mallampati Classification: class 1 Internal Medicine - PN: Obj Da Vital Signs Vital Signs: Vital Signs - 24 hr 04/30/21 23:12 04/30/21 23:26 04/30/21 23:41 Temperature 36.4 C Pulse Rate 70 64 Respiratory Rate 18 22 H Blood Pressure 183/99 H 181/96 H Pulse Oximetry 94 97 98 04/30/21 23:49 05/01/21 00:12 Temperature Pulse Rate 74 73 Respiratory Rate 18 22 H Blood Pressure 167/110 H 160/98 H Pulse Oximetry 98 98 Meds/Results Medications: Active Medications Generic Name Dose Route Start Last Admin Trade Name Freq PRN Reason Stop Dose Admin Hydrocodone Bitart/Acetaminophen 1 tab 05/01/21 01:48 Hydrocodone/Acetaminophen (*Crx) 5-325 Mg Tablet PO Q4-6H PRN Pain Rated 1-3 Al Hydrox/Mg Hydrox/Simethicone 30 ml 05/01/21 01:48 Mag Hydrox/Al Hydrox/Simeth 30 Ml Udc PO
--- NOTE | 2021-05-01 03:00 | WPDCARDPROC ---
Cardiac Cath Procedure Note Date of procedure:: 05/01/21 Performing physician:: Kallie Coffey MD Indication:: Anterior STEMI Brief clinical history:: this 61-year-old patient who just received mid LAD stent because of anterior STEMI. When he arrived to the ICU he started to have crushing central chest pain and EKG shows recurrence of anterior ST-elevation. he was rushed back to the corn lab technician to define coronary anatomy. Procedure Procedure performed:: 1-Selective left coronary angiogram. 2- deployment of a drug-eluting stent 2.5x12 to mid LAD overlapping the mid LAD stent and distal to it. Deployment under normal pressure for 25 seconds and then the stent balloon was used to post dilate the overlap segment and 20 atmospheres for 20 seconds. And then after that postdilatation done using 3 x 20 noncompliant balloon and the 16 atmospheres for 25 seconds. Two inflations. Sedation/Medication given:: Moderate sedation. Access site:: Right common femoral artery. Estimated blood loss:: 10cc Procedure note:: After informed consent patient was brought in to corn lab technician. The left groin was infiltrated using 1% lidocaine. then after that selective left coronary angiogram was done using CLS 3.5 guide catheter. Coronary luge wire was advanced to distal LAD. [place] catheter was past and 1 when done. Then after that balloon angioplasty of the stent using 3 x 15 noncompliant balloon with 2 inflations each under 12 atmospheres for 3 per seconds. Will notice some haziness distal to the stent and therefore we elected to cover it using 2.5 x 12 drug-eluting stent deployed at the nominal pressure for 25 seconds and the balloon was used to post dilate overlapt segment under 20 atmospheres for 25 seconds. and then post dilatation of the overlap segment using 3 x 20 noncompliant balloon with inflation to 16 atmospheres for 25 seconds Findings:: 1- left coronary artery is a large artery that divides into large LAD, large circumflex artery. Left main distal 40%. 2- left anterior descending artery is a large artery A totally occluded at the level of the mid LAD stent with LETICIA flow 0. Conclusion:: In stent thrombosis status post balloon angioplasty and deployment of another drug-eluting stent to mid LAD. Assessment and Plan Additional Plan - Continue aspirin and Brilinta. - will start Integrilin drip for the next 12 hours.
--- NOTE | 2021-05-01 03:39 | ECG_ITS ---
Measurements Intervals [place] Rate: 62 P: -31 VA: 149 QRS: -3 QRSD: 97 T: -19 QT: 427 QTc: 436 Interpretive Statements SINUS RHYTHM VENTRICULAR PREMATURE COMPLEX POSSIBLE LEFT ATRIAL ENLARGEMENT EXTENSIVE ANTERIOR ST ELEVATION MYOCARDIAL INJURY- ACUTE HIGH LATERAL ST ELEVATION MYOCARDIAL INJURY- ACUTE BASELINE ARTIFACT- I, II, III, AVR, AVL, AVF, V4-V6 ABNORMAL ECG Electronically Signed On 05-01-2021 8:29:55 CDT by Navid Sinclair D.O.
--- NOTE | 2021-05-01 04:14 | ADMGEN ---
This patient, Frederick Jarvis, was admitted to Intensive Care Unit-6. Patient/family oriented to hospital policies and general routines including ID bracelet, bed and alarms, visiting hours, pain management, procedures, bathroom and other care routines, personal items, smoking policy, room service/diet, and visiting hours. Information on how to activate the Rapid Response Team has been discussed. Patient/Family are encouraged to report perceived risks to care and to ask questions if they do not understand what they are told or what they should do.
[2021-05-01 05:25] LABS: Basophils Percent Auto 0.4 % (0.2-1.2); Eosinophils Percent Auto 0.3 % (0-4.4); Hematocrit 42.2 % (42.0-52.0); Hemoglobin 13.3 g/dL (14.0-18.0); Immature Granulocyte Absolute 0.04 K/mm3 (0.00-0.031); Immature Granulocyte Percent A 0.4 % (0-0.5); Lymphocytes Absolute Auto 1.79 K/mm3 (0.9-3.2); Lymphocytes Percent Auto 19.6 % (18.3-44.2); Mean Corpuscular HGB Conc 31.5 g/dl (32-36); Mean Corpuscular Hemoglobin 30.9 pg (26-34); Mean Corpuscular Volume 97.9 fl (80-100); Mean Platelet Volume 10.6 fl (7.4-10.4); Monocytes Absolute Auto 0.6 K/mm3 (0.1-0.6); Neutrophils Absolute Auto 6.6 K/mm3 (1.3-6.7); Neutrophils Percent Auto 72.3 % (45.5-73.1); Platelet Count Result 243 k/mm3 (150-375); Red Blood Count 4.31 M/mm3 (4.6-6.20); Red Cell Distribution Width 13.4 % (11.5-14.5); White Blood Count 9.1 K/mm3 (4.5-10.0)
[2021-05-01 05:58] LABS: Anion Gap 51 mmol/L (8-16); Blood Urea Nitrogen 22 mg/dL (9-20); Calcium 4.4 mg/dL (8.4-10.2); Carbon Dioxide 13 mmol/L (22-30); Chloride 85 mmol/L (98-107); Cholesterol 141 mg/dL (0-200); Estimated CRCL calculation 75 ml/min; Estimated Glomerular Filt Rate > 60; Glucose 101 mg/dL (65-110); HDL Direct 20 mg/dL; Potassium 3.4 mmol/L (3.4-5.0); Sodium 149 mmol/L (137-145); Triglycerides 222 mg/dL (<150)
[2021-05-01 06:02] LABS: LDL Cholesterol Direct 89 mg/dL
[2021-05-01] MEDS: ONDANSETRON INJ 4 MG/2 ML VIAL IV PUSH (07:35)
[2021-05-01] MEDS: SODIUM CHLORIDE 0.9% IV 500 ML 125 ML (07:50)
[2021-05-01] MEDS: EPTIFIBATIDE 0.75 MG/ML 75 MG/100 ML VIAL 17.23 MG IV CONT ×2 (07:51→13:25)
[2021-05-01] MEDS: lisinopriL 20 MG TABLET 40 MG PO (08:39)
[2021-05-01] MEDS: ATORVASTATIN 40 MG TABLET PO (08:40)
[2021-05-01] MEDS: TICAGRELOR 90 MG TABLET PO ×2 (08:40→20:30)
[2021-05-01] MEDS: ASPIRIN 81 MG ENTERIC TABLET PO (08:40)
--- NOTE | 2021-05-01 10:22 | WPDCNINT ---
Assessment and Plan Assessment and plan (1) ST elevation (STEMI) myocardial infarction: Code(s): I21.3 - ST elevation (STEMI) myocardial infarction of unspecified site Status: Acute Assessment and Plan: Status post PCI and dual stent placement to LAD Dual antiplatelet therapy Continue beta-eufemia statin, lisinopril check echocardiogram (2) Kidney disease: Code(s): N28.9 - Disorder of kidney and ureter, unspecified Status: Acute Assessment and Plan: Last recorded creatinine the chart is 1.9 in 2019 and he presented with creatinine of 2. He was started on IV fluids post procedure for renal protection to try to minimize worsening of chronic kidney disease BMP this morning shows creatinine of 1.2 but the number suggest that this is an error. I will repeat BMP now Monitor urine output and electrolytes (3) Hypertension: Code(s): I10 - Essential (primary) hypertension Status: Inactive Assessment and Plan: Beta-eufemia, Norvasc, lisinopril (4) Hyperlipemia: Code(s): E78.5 - Hyperlipidemia, unspecified Status: Acute Assessment and Plan: Statin and fenofibrate (5) Chronic back pain: Code(s): M54.9 - Dorsalgia, unspecified; G89.29 - Other chronic pain Status: Acute Assessment and Plan: P.joy Fuentes (6) Tobacco abuse: Code(s): Z72.0 - Tobacco use Status: Acute Assessment and Plan: Patient was counseled and strongly encouraged to quit smoking for 3-5 minutes Additional Plan DVT prophylaxis -SCDs in bed, patient should be able to ambulate today Cardiac diet Transfer out of ICU today Delivery Driver Consult Note Consult date: 05/01/21 HPI: Frederick Jarvis is a 61 year old male with history of tobacco use, stroke and chronic kidney disease stage 3 with creatinine of 2 who presents last night to ED with chest pain that started 1 day however it has increased in severity prior to presentation. CP s/w shortness of breath. He was diagnosed with STEMI and taken to slab puller. He underwent Successful stenting of mid LAD using drug-eluting stent culprit lesion for the STEMI. While he was in the slab puller , he went into ventricular fibrillation and successfully defibrillated using 200 joule shock with rastafarian of normal sinus rhythm and rastafarian of mental status. He was also given amiodarone 150 mg IV bolus. Few hours later on arrival to ICU, he started to have crushing central chest pain and EKG shows recurrence of anterior ST-elevation. He was taken back to the slab puller to define coronary anatomy. LAD stent was occluded with In stent thrombosis and he underwent post balloon angioplasty and deployment of another drug-eluting stent to mid LAD. Admitted to ICU post procedure. Patient told me that he had chest pain all the yesterday which was coming and going. Patient was in the mid chest and radiated to his back, 10/10 severe, burning in quality, associated with shortness of breath nausea and sweating. It started while he was watching the TV. During the course of the day the pain became worse hence he came to ER. In resolved completely after 2nd procedure. Currently he denies any chest pain shortness of breath and feels fine. No nausea vomiting abdominal pain diarrhea constipation headache palpitations. Review of system was positive for back pain which is chronic and has been exacerbated by laying in bed. All the systems were reviewed and were negative He has received coronavirus vaccine [employer] Review of Systems Review of Systems: All systems reviewed & are unremarkable except as noted in HPI and below (HPI) [facility] Past Medical History Medical History (Updated 05/01/21 @ 11:21 by Lobo Carbajal MD) Chronic back pain Cirrhosis Coughing Dizziness Hair loss Hepatitis C High cholesterol History of DVT (deep vein thrombosis) Patient denies any history of DVT or being on any anticoagulation Hypertension Kidney disease Olecrano
[2021-05-01] MEDS: HYDROcodone/acetaminophen (*CRX) 5-325 MG TABLET 1 TAB PO (11:11)
--- NOTE | 2021-05-01 11:16 | PM.PNCARD ---
Progress Note: A&P Assessment and Plan (1) ST elevation (STEMI) myocardial infarction: Code(s): I21.3 - ST elevation (STEMI) myocardial infarction of unspecified site Status: Acute Assessment and Plan: Status post anterior STEMI with acute stent thrombosis requiring immediate repeat angiography and balloon angioplasty. Patient now stable, asymptomatic and doing well. Continue dual antiplatelet therapy and Integrilin for 12 hours as directed by Dr. Coffey. Continue to monitor in ICU today. Repeat 12 lead EKG. 2D echocardiogram. DVT prophylaxis with SCDs. (2) Hypocalcemia: Code(s): E83.51 - Hypocalcemia Status: Acute Assessment and Plan: Repeat calcium level for confirmation. Severely hypocalcemic at 4.4. (3) Kidney disease: Code(s): N28.9 - Disorder of kidney and ureter, unspecified Status: Acute Assessment and Plan: Renal function improved since admission. Continue to follow BMP. Monitor volume status. (4) Hyperlipemia: Code(s): E78.5 - Hyperlipidemia, unspecified Status: Acute Assessment and Plan: LDL 89 goal less than 70. Atorvastatin 40 mg at bedtime (5) Tobacco abuse: Code(s): Z72.0 - Tobacco use Status: Acute Assessment and Plan: Immediate and absolute smoking cessation counseling. Subjective Date/time seen: Date of service: 05/01/21 11:16 Follow-up status post anterior STEMI Patient denies chest pain or shortness of breath. Hemodynamically stable. Maintaining sinus rhythm heart rate 60 beats per minute. No significant discomfort at bilateral groin access sites. Patient had post intervention stent thrombosis acutely with recurrent ST elevations prompting repeat coronary angiogram with angioplasty which was successful. Patient is currently on Integrilin with plans for 12 hour duration. Review of Systems Review of Systems: All systems reviewed & are unremarkable except as noted in HPI and below Constitutional: Constitutional: Reports as per HPI, Denies chills, Reports fatigue, Denies fever(s), Denies headache(s) and Denies snoring Eyes: Eyes: Reports as per HPI, Denies eye discharge and Denies loss of vision ENT: Reports as per HPI, Denies dizziness, Denies headache(s), Denies nasal discharge and Denies sore throat Cardiovascular: Cardiovascular: Reports as per HPI, Denies chest pain, Denies syncope, Denies rapid heart rate, Denies leg edema, Reports dyspnea, Reports dyspnea on exertion, Denies orthopnea and Denies paroxysmal nocturnal dyspnea Respiratory: Respiratory: Reports as per HPI, Denies chest congestion, Denies cough, Denies dyspnea, Denies dyspnea on exertion, Denies snoring and Denies wheezing Gastrointestinal: Gastrointestinal: Reports as per HPI, Denies abdominal pain, Denies diarrhea, Denies nausea and Denies vomiting Genitourinary: Genitourinary: Reports as per HPI, Denies hematuria, Denies dysuria, Denies flank pain and Denies urinary frequency Musculoskeletal: Musculoskeletal: Reports as per HPI, Denies myalgias, Denies arthralgias and Denies joint swelling Integumentary/Breasts: Skin/Breast: Reports as per HPI Neurologic: Reports as per HPI, Denies Abnormal speech present, Denies dizziness, Denies syncope, Denies headache(s), Denies focal weakness and Denies loss of vision Psychiatric: Psychiatric: Reports as per HPI, Denies anxiety and Denies depression Endocrine: Endocrine: Reports as per HPI, Denies cold intolerance, Denies fatigue and Denies heat intolerance Hematologic/Lymphatic: Hematologic/Lymphatic: Denies easy bleeding and Denies easy bruising Allergic/Immunologic: Allergic/Immunologic: Denies urticaria and Denies wheezing Exam Const: General: cooperative, healthy appearing, comfortable, no acute distress and well developed Nutritional Appearance: well nourished Orientation/consciousness: patient oriented x3 HENMT: Head: normal to inspection, normocephalic and atraumatic Ears: hearin
--- NOTE | 2021-05-01 11:35 | ECHO_ITS ---
Patient Info Name: Frederick Jarvis Age: 61 years : 1960 Gender: Male Ht: 74 in Wt: 236 lbs BSA: 2.39 m2 HR: 59 bpm BP: 143 / 88 mmHg Heart Rhythm: Bradycardia, Sinus Rhythm Technical Quality: Fair Exam Date: 05/01/2021 2:09 PM Exam Location: [facility] Pulmonary Exam Room: ICU6 Patient Status: Inpatient Admit Date: 04/30/2021 Staff Ordering Physician: Donnell Schilling MD Butter Production Supervisor: Gaviota Valera RDCS Attending Provider: Kallie Coffey MD Referring Physician: Shakir PRICE; Exam Type: CA echo doppler color flow Study Info Indications - CHEST PAIN STEMI S/P CATH Complete two-dimensional, color flow and Doppler transthoracic echocardiogram is performed. Summary 1. Left ventricular chamber dimension is normal. 2. Left ventricular systolic function is mildly reduced, estimated at 50% with hypokinetic apex and akinetic apical septum. . 3. There is moderately increased left ventricular wall thickness. 4. The left ventricular diastolic function is grade I diastolic dysfunction. 5. There is mild mitral valve regurgitation. 6. There is no aortic valve stenosis. 7. Although clearly identified thrombus at LV apex, cannot definitively exclude due to forshortened images and trabeculations. Consider repeat limited study with contrast enhancement. Left Ventricle Left ventricular chamber dimension is normal. Left ventricular systolic function is mildly reduced, estimated at 50% with hypokinetic apex and akinetic apical septum. . There is moderately increased left ventricular wall thickness. The left ventricular diastolic function is grade I diastolic dysfunction. Although clearly identified thrombus at LV apex, cannot definitively exclude due to forshortened images and trabeculations. Consider repeat limited study with contrast enhancement. Right Ventricle Right ventricular chamber dimension is normal. Right ventricular systolic function is normal. Left Atria Left atrial chamber dimension is normal. Right Atria Right atrial chamber dimension is normal. Aortic Valve The aortic valve is trileaflet. There is no aortic valve stenosis. There is no aortic valve regurgitation. Pulmonic Valve The pulmonic valve is not well visualized. There is trace pulmonic regurgitation. Mitral Valve The mitral valve has normal leaflets. There is mild mitral valve regurgitation. The mitral valve annulus is mildly calcified. Tricuspid Valve The tricuspid valve leaflets are normal. There is trace tricuspid valve regurgitation. No pulmonary hypertension, estimated pulmonary arterial systolic pressure is 30 mmHg. Pericardium/Pleural The pericardium appears normal. There is no pericardial effusion. Inferior Vena Cava Normal inferior vena cava with >50% collapse upon inspiration consistent with normal right atrial pressure, 5 mmHg. Aorta The aortic root size at the sinus of Valsalva is normal. There is mild aortic atherosclerosis. Left Ventricular Outflow Tract Name Value Normal LVOT 2D LVOT Diameter 2.1 cm LVOT Doppler LVOT Peak Gradient 4 mmHg LVOT Mean Gr
--- NOTE | 2021-05-01 11:39 | ECG_ITS ---
Measurements Intervals [place] Rate: 61 P: -7 [place]: 164 QRS: 33 QRSD: 102 T: 132 QT: 490 QTc: 495 Interpretive Statements SINUS RHYTHM DELAYED PRECORDIAL R/S TRANSITION T WAVE ABNORMALITY IN ANTEROLAT/HIGH LAT LEADS- CONSIDER ISCHEMIA ABNORMAL ECG Electronically Signed On 05-01-2021 16:24:22 CDT by Navid Sinclair D.O.
[2021-05-01] MEDS: amLODIPine BESYLATE 5 MG TABLET 10 MG PO (12:10)
[2021-05-01] MEDS: METOPROLOL TARTRATE 50 MG TAB PO ×2 (12:10→20:30)
[2021-05-01] MEDS: FENOFIBRATE NANOCRYSTALLIZED 145 MG TABLET PO (12:10)
[2021-05-01 12:25] LABS: Hemoglobin A1C 5.6 % (<5.7)
[2021-05-01 15:12] LABS: Calcium 9.1 mg/dL (8.4-10.2)
[2021-05-02] VITALS (13 sets, daily range): BP systolic 122–148; BP diastolic 58–84; PULSE 57–67; RESP 16–24; TEMP 36.4–37.2; O2SAT 94–99
[2021-05-02] MEDS: HYDROcodone/acetaminophen (*CRX) 5-325 MG TABLET 1 TAB PO ×2 (00:08→17:50)
--- NOTE | 2021-05-02 02:05 | PC.NURSE ---
Daylight Savings Time For Daylight Savings Time Ending in the Fall - Clocks are moved back. For Daylight Savings Time Beginning in the Spring - Clocks are moved ahead. For [facility], the time of change occurs at 0200 hrs. Time is taken from the windows server support technician. This entry on the patient's chart recognizes the change in time reflected during documentation. Example: 2 entries for vital signs may be charted for 0200 hrs.
[2021-05-02 05:09] LABS: Hematocrit 43.2 % (42.0-52.0); Hemoglobin 14.1 g/dL (14.0-18.0); Mean Corpuscular HGB Conc 32.6 g/dl (32-36); Mean Corpuscular Hemoglobin 30.1 pg (26-34); Mean Corpuscular Volume 92.1 fl (80-100); Mean Platelet Volume 10.5 fl (7.4-10.4); Platelet Count Result 236 k/mm3 (150-375); Red Blood Count 4.69 M/mm3 (4.6-6.20); Red Cell Distribution Width 13.5 % (11.5-14.5); White Blood Count 8.4 K/mm3 (4.5-10.0)
[2021-05-02 05:21] LABS: Alanine Aminotransferase 22 U/L (4-50); Alkaline Phosphatase 47 U/L (38-126); Anion Gap 8 mmol/L (8-16); Aspartate Amino Transferase 65 U/L (17-59); Bilirubin,Total 0.7 mg/dL (0.2-1.3); Blood Urea Nitrogen 22 mg/dL (9-20); Calcium 8.9 mg/dL (8.4-10.2); Carbon Dioxide 23 mmol/L (22-30); Chloride 106 mmol/L (98-107); Estimated CRCL calculation 58 ml/min; Estimated Glomerular Filt Rate 52; Glucose 103 mg/dL (65-110); Potassium 3.7 mmol/L (3.4-5.0); Sodium 137 mmol/L (137-145)
[2021-05-02] MEDS: amLODIPine BESYLATE 5 MG TABLET 10 MG PO (08:48)
[2021-05-02] MEDS: FENOFIBRATE NANOCRYSTALLIZED 145 MG TABLET PO (08:48)
[2021-05-02] MEDS: ASPIRIN 81 MG ENTERIC TABLET PO (08:48)
[2021-05-02] MEDS: lisinopriL 20 MG TABLET 40 MG PO (08:48)
[2021-05-02] MEDS: ATORVASTATIN 40 MG TABLET PO (08:49)
[2021-05-02] MEDS: TICAGRELOR 90 MG TABLET PO ×2 (08:49→20:02)
--- NOTE | 2021-05-02 10:41 | PM.PNCARD ---
Progress Note: A&P Assessment and Plan (1) ST elevation (STEMI) myocardial infarction: Code(s): I21.3 - ST elevation (STEMI) myocardial infarction of unspecified site Status: Acute Assessment and Plan: Status post anterior STEMI with acute stent thrombosis requiring immediate repeat angiography and balloon angioplasty. Patient now stable, asymptomatic and doing well. Continue dual antiplatelet therapy and Integrilin for 12 hours as directed by Dr. Coffey. -DVT prophylaxis with SCDs. -aspirin 81 mg daily, Brilinta 90 mg twice daily, atorvastatin 40 mg at bedtime -continue beta-eufemia as tolerated. Discussed the importance beta-eufemia therapy as tolerated for reduction subsequent myocardial infarction, benefit with anginal symptoms as tolerated. Patient verbalized understanding. -2D echo EF 50% hypokinetic apex, akinetic apical septum no clear thrombus but cannot be excluded. Limited echo with contrast in a.m.. Discussed with patient who verbalized understanding. Stable to transfer out of ICU to med telemetry today. Anticipate discharge home tomorrow if stable overnight without significant bradycardia or ventricular tachycardia. (2) Bradycardia: Code(s): R00.1 - Bradycardia, unspecified Status: Acute Assessment and Plan: Reduce metoprolol 12.5 mg twice daily. Monitor tolerance. Monitor for nonsustained ventricular tachycardia. Suspect may need to increase back to 25 mg twice daily prior to discharge depending on heart rate and ventricular arrhythmias. (3) NSVT (nonsustained ventricular tachycardia): Code(s): I47.2 - Ventricular tachycardia Status: Acute Assessment and Plan: Transient, asymptomatic nonsustained VT. As above. Beta-blockers as tolerated. Telemetry (4) Hypocalcemia: Code(s): E83.51 - Hypocalcemia Status: Acute Assessment and Plan: Repeat calcium level normalized, previous low value of 4.4 lab error as suspected. (5) Kidney disease: Code(s): N28.9 - Disorder of kidney and ureter, unspecified Status: Acute Assessment and Plan: Renal function improved since admission. Continue to follow BMP. Monitor volume status. (6) Hyperlipemia: Code(s): E78.5 - Hyperlipidemia, unspecified Status: Acute Assessment and Plan: LDL 89 not ideally controlled, goal less than 70. Atorvastatin 40 mg at bedtime (7) Tobacco abuse: Code(s): Z72.0 - Tobacco use Status: Acute Assessment and Plan: Immediate and absolute smoking cessation counseling. Subjective Date/time seen: Date of service: 05/02/21 10:41 Follow-up for anterior ST-elevation AR Denies chest pain or shortness of breath. Completed Integrilin without incident yesterday afternoon. Had brief nonsustained VT on telemetry as well as periodic bradycardia and 3.2nd pause overnight. Metoprolol held this morning. Feels okay, somewhat fatigued. Review of Systems Review of Systems: All systems reviewed & are unremarkable except as noted in HPI and below Constitutional: Constitutional: Reports as per HPI, Denies chills, Denies fatigue, Denies fever(s), Denies headache(s) and Denies snoring Eyes: Eyes: Reports as per HPI, Denies eye discharge and Denies loss of vision ENT: Reports as per HPI, Denies dizziness, Denies headache(s), Denies nasal discharge and Denies sore throat Cardiovascular: Cardiovascular: Reports as per HPI, Denies chest pain, Denies syncope, Denies rapid heart rate, Denies leg edema, Denies dyspnea, Denies dyspnea on exertion, Denies orthopnea and Denies paroxysmal nocturnal dyspnea Respiratory: Respiratory: Reports as per HPI, Denies chest congestion, Denies cough, Denies dyspnea, Denies dyspnea on exertion, Denies snoring and Denies wheezing Gastrointestinal: Gastrointestinal: Reports as per HPI, Denies abdominal pain, Denies diarrhea, Denies nausea and Denies vomiting Genitourinary: Genitourinary: Reports as per HPI, Jorge
--- NOTE | 2021-05-02 13:46 | PC.NURSE ---
This patient, Frederick Jarvis, was transferred to [[id number] ] on 05/02/21 at 1340. Personal belongings sent with patient. Report given to [ Nina]. Appropriate documentation sent with patient.
--- NOTE | 2021-05-02 13:54 | PC.NURSE ---
This patient, Frederick Jarvis, was received from ICU on 05/02/21 at 1340. Patient/family oriented to unit policies and routines
--- NOTE | 2021-05-02 19:16 | PC.NURSE ---
Dr. Bains notified that patient heart rate dropped to 38 on tele and then jumped back up to the 60's, new orders. Pt was sleeping
[2021-05-02] MEDS: METOPROLOL TARTRATE 12.5 MG TABLET PO (20:02)
[2021-05-03] VITALS (8 sets, daily range): BP systolic 140–155; BP diastolic 70–83; PULSE 62–77; RESP 16–20; TEMP 35.9–36.9; O2SAT 98
--- NOTE | 2021-05-03 | ECHO_ITS ---
Patient Info Name: Frederick Jarvis Age: 61 years : 1960 Gender: Male Ht: 74 in Wt: 207 lbs BSA: 2.22 m2 HR: 73 bpm BP: 140 / 83 mmHg Technical Quality: Good Exam Date: 05/03/2021 12:41 PM Exam Location: [facility] Pulmonary Exam Room: [facility] Patient Status: Inpatient Admit Date: 04/30/2021 Staff Ordering Physician: Donnell Schilling MD Fisher Eel: Gaviota Valera RDCS Attending Provider: Kallie Coffey MD Referring Physician: Shakir PRICE; Exam Type: CA echo limited w contrast Study Info Indications - R/O APICAL THROMBUS Limited two-dimensional transthoracic echocardiogram is performed with contrast. Contrast/Agitated Saline Contrast/Ag. Saline: Definity Amount: 2.00 ml Left Ventricle Left ventricular chamber dimension is normal. Left ventricular systolic function is Empty, estimated at 50-55%. Definity used to enhance visualization. [place], apicoseptal , anteroseptal segments are akinteic. No LV clot ( No filling defects ). Report Signatures
[2021-05-03 07:09] LABS: Hematocrit 43.1 % (42.0-52.0); Hemoglobin 14.7 g/dL (14.0-18.0); Mean Corpuscular HGB Conc 34.1 g/dl (32-36); Mean Corpuscular Hemoglobin 30.9 pg (26-34); Mean Corpuscular Volume 90.7 fl (80-100); Mean Platelet Volume 10.7 fl (7.4-10.4); Platelet Count Result 239 k/mm3 (150-375); Red Blood Count 4.75 M/mm3 (4.6-6.20); Red Cell Distribution Width 13.5 % (11.5-14.5); White Blood Count 8.2 K/mm3 (4.5-10.0)
[2021-05-03 07:22] LABS: Alanine Aminotransferase 19 U/L (4-50); Albumin Level 4.2 g/dL (3.5-5.1); Alkaline Phosphatase 49 U/L (38-126); Anion Gap 7 mmol/L (8-16); Aspartate Amino Transferase 44 U/L (17-59); Bilirubin,Total 0.7 mg/dL (0.2-1.3); Blood Urea Nitrogen 19 mg/dL (9-20); Calcium 9.4 mg/dL (8.4-10.2); Carbon Dioxide 24 mmol/L (22-30); Chloride 107 mmol/L (98-107); Estimated CRCL calculation 61 ml/min; Estimated Glomerular Filt Rate 48; Glucose 113 mg/dL (65-110); Magnesium 2.3 mg/dL (1.6-2.3); Potassium 3.7 mmol/L (3.4-5.0); Sodium 138 mmol/L (137-145)
--- NOTE | 2021-05-03 09:30 | PM.DS ---
DS: Admitting Diagnosis Discharge Date 05/03/2021 Admitting Diagnosis Chest pain DS: Discharge Diagnosis Discharge Diagnosis (1) ST elevation (STEMI) myocardial infarction: Code(s): I21.3 - ST elevation (STEMI) myocardial infarction of unspecified site Status: Acute Assessment and Plan: Status post anterior STEMI with acute stent thrombosis requiring immediate repeat angiography and balloon angioplasty. Patient now stable, asymptomatic and doing well. Continue dual antiplatelet therapy. -aspirin 81 mg daily, Brilinta 90 mg twice daily, atorvastatin 40 mg at bedtime -continue beta-eufemia as tolerated. -2D echo EF 50% hypokinetic apex, akinetic apical septum no clear thrombus but cannot be excluded. Limited echo with contrast did not show evidence of thrombus. Stable to discharge home today (2) Bradycardia: Code(s): R00.1 - Bradycardia, unspecified Status: Acute Assessment and Plan: Reduce metoprolol 12.5 mg twice daily. No NSVT on telemetry. He has had some badycardia (heart rate 40's 50's) with insignificant pauses. Continue current metoprolol dose of 12.5mg b.i.d. Suspect may need to increase back to 25 mg twice daily prior to discharge depending on heart rate and ventricular arrhythmias. (3) NSVT (nonsustained ventricular tachycardia): Code(s): I47.2 - Ventricular tachycardia Status: Acute Assessment and Plan: Transient, asymptomatic nonsustained VT over the weekend. No NSVT noted on telemetry overnight. As above. Beta-blockers as tolerated. Telemetry (4) Hypocalcemia: Code(s): E83.51 - Hypocalcemia Status: Acute Assessment and Plan: Repeat calcium level normalized, previous low value of 4.4 lab error as suspected. (5) Kidney disease: Code(s): N28.9 - Disorder of kidney and ureter, unspecified Status: Acute Assessment and Plan: Renal function improved since admission. Continue to follow BMP. Monitor volume status. (6) Hyperlipemia: Code(s): E78.5 - Hyperlipidemia, unspecified Status: Acute Assessment and Plan: LDL 89 not ideally controlled, goal less than 70. Atorvastatin 40 mg at bedtime (7) Tobacco abuse: Code(s): Z72.0 - Tobacco use Status: Acute Assessment and Plan: Immediate and absolute smoking cessation counseling. DS: Summary Hospital Course Hospital Course: Patient presented to the emergency department with chest pain that had been ongoing for about 24 hours. Chest pain had worsened about one hour prior to presentation to the emergency department. EKG in the emergency department showed ST elevations in leads V1, V2, and V3. Therefore, patient was taken emergently to the builder's labourer. Upon arrival to the builder's labourer patient went into ventricular fibrillation and required defibrillation. Defibrillation was successful with adventism of normal sinus rhythm. Coronary angiography revealed 95% stenosis of the LAD which was stented with a drug-eluting stent. He was also noted to have distal LAD disease of about 62 is 70%. He has 50% stenosis of the left PDA, high-grade stenosis in the non dominant RCA. Unfortunately, when he returned to the ICU after his procedure he developed severe crushing substernal chest pain with EKG changes that were consistent with recurrence of anterior ST-elevation. He was returned to the builder's labourer for balloon angioplasty of the LAD and placement of another drug-eluting stent. Following this he recovered well and has not experienced any significant complications. He has been placed on dual anti-platelet therapy as well as a statin. He is stable from a cardiac standpoint is appropriate for discharge from the hospital today. Time Spent with Patient Time attestation: Total time spent providing and/or coordinating discharge services: Exam Const: General: cooperative, healthy appearing, comfortable, no acute distress and well developed Nutritional Appearan
[2021-05-03] MEDS: ASPIRIN 81 MG ENTERIC TABLET PO (09:48)
[2021-05-03] MEDS: lisinopriL 20 MG TABLET 40 MG PO (09:48)
[2021-05-03] MEDS: ATORVASTATIN 40 MG TABLET PO (09:48)
[2021-05-03] MEDS: METOPROLOL TARTRATE 12.5 MG TABLET PO (09:48)
[2021-05-03] MEDS: amLODIPine BESYLATE 5 MG TABLET 10 MG PO (09:49)
[2021-05-03] MEDS: FENOFIBRATE NANOCRYSTALLIZED 145 MG TABLET PO (09:49)
[2021-05-03] MEDS: TICAGRELOR 90 MG TABLET PO (09:49)
[2021-05-03] MEDS: PERFLUTREN LIPID MICROSPHERES 1.5 ML VIAL DILUTED TO 10 ML TOTAL VOLUME (11:44)
[2021-05-03] MEDS: HYDROcodone/acetaminophen (*CRX) 5-325 MG TABLET 1 TAB PO (15:54)
== END 2021-05-03 18:00 | disposition home or self-care (01) | DRG 174 ==
LOC: ANHED 23:52 → ANHICU 05-01 05:27 → ANH3MED 05-02 22:11 → ANHICU 05-05 07:29
PROVIDERS: Internal Medicine; Internal Medicine Cardiovascular Disease; Admitting Provider Internal Medicine Cardiovascular Disease; Emergency Provider Emergency Medicine; PCP Family Medicine Adolescent Medicine; Visit Provider Nurse Practitioner
PROC: 4A023N7 Measurement of Cardiac Sampling and Pressure, Left Heart, Percutaneous Approach (ICD-10-PCS; CPT 93452; principal; 2021-04-30 23:55)
PROC: 027034Z Dilation of Coronary Artery, One Artery with Drug-eluting Intraluminal Device, Percutaneous Approach (ICD-10-PCS; CPT 93454; principal; 2021-05-01 02:00)
PROC: 027034Z Dilation of Coronary Artery, One Artery with Drug-eluting Intraluminal Device, Percutaneous Approach (ICD-10-PCS; 2021-05-01 02:00)
DX: I21.02 ST elevation (STEMI) myocardial infarction involving left anterior descending coronary artery (principal); I12.9 Hypertensive chronic kidney disease with stage 1 through stage 4 chronic kidney disease, or unspecified chronic kidney disease; N18.30 Chronic kidney disease, stage 3 unspecified; I49.01 Ventricular fibrillation; I47.1 Supraventricular tachycardia; I97.190 Other postprocedural cardiac functional disturbances following cardiac surgery; T82.867A Thrombosis due to cardiac prosthetic devices, implants and grafts, initial encounter; I21.A9 Other myocardial infarction type; R00.1 Bradycardia, unspecified; E83.51 Hypocalcemia; E78.5 Hyperlipidemia, unspecified; F17.210 Nicotine dependence, cigarettes, uncomplicated; M70.22 Olecranon bursitis, left elbow; Z86.718 Personal history of other venous thrombosis and embolism; Z86.73 Personal history of transient ischemic attack (TIA), and cerebral infarction without residual deficits; Z79.82 Long term (current) use of aspirin; M54.9 Dorsalgia, unspecified; G89.29 Other chronic pain
CPT/HCPCS: 36415; 71045; 80048; 80053; 80061; 82310; 82330; 83036; 83735; 84484; 85025; 85027; 85610; 85730; 93005; 93306; 93308; 93454; 93458; 94762; 99291; A9270; C1725; C1757; C1760; C1769; C1874; C1887; C1894; C8924; C9606; G0269; J0171; J0282; J0461; J0583; J1327; J1644; J2270; J2405; J3010; J7040; Q9957

== ENCOUNTER 2021-05-19 12:25 | Outpatient (CLI) | payer OTHER, SELFPAY ==
--- NOTE | ~2021-05-19 | XR_ITS ---
EXAMINATION: XR chest 2V 05/19/2021 12:41 INDICATION: Dyspnea with exertion. Stent placement. PROCEDURE: PA and lateral views of the chest COMPARISON: 04/30/2021 FINDINGS: The lungs are clear. The cardiomediastinal silhouette is within normal limits. There are no pleural effusions. There is no pneumothorax suspected. There are mild chronic wedge compression deformities of the midthoracic vertebra. IMPRESSION: 1: NO ACUTE CARDIOPULMONARY DISEASE. Reviewed, dictated and finalized at location A. ARCH AND DEVELOPMENT SPECIALIST
== END 2021-05-19 12:26 | disposition home or self-care (01) ==
LOC: ANHIMG 12:29
PROVIDERS: PCP Family Medicine Adolescent Medicine; Visit Provider Nurse Practitioner
DX: R06.00 Dyspnea, unspecified (principal)
CPT/HCPCS: 71046

== ENCOUNTER 2021-06-23 15:00 | Outpatient (RCR) | payer OTHER, SELFPAY ==
[2021-06-04 08:49] VITALS: BP 168/90; PULSE 66; RESP 20; O2SAT 96
[2021-06-04 09:07] VITALS: PULSE 66
== END 2021-07-12 13:57 | disposition home or self-care (01) ==
LOC: ANHCPREHAB 15:00
PROVIDERS: PCP Family Medicine Adolescent Medicine; Visit Provider Nurse Practitioner
DX: Z95.5 Presence of coronary angioplasty implant and graft (principal)
CPT/HCPCS: 93798

== ENCOUNTER 2021-09-08 14:16 | Inpatient (IN) | payer OTHER, SELFPAY ==
[2021-09-08] VITALS (24 sets, daily range): BP systolic 128–191; BP diastolic 60–150; PULSE 88–118; RESP 12–41; TEMP 37.8–39.1; O2SAT 94–99; BMI 29.2
--- NOTE | ~2021-09-08 | XR_ITS ---
XR chest 1V portable 09/11/2021 11:26 Indication: Dyspnea. Productive cough. Procedure: AP portable chest Comparison: Comparison to multiple prior studies sequentially, with oldest reviewed study dated 10/2020. Findings: Cardiomegaly. Patchy bilateral airspace disease. No significant effusion or pneumothorax. D ifferent Impression: 1: Progression of patchy bilateral airspace disease which may represent pneumonia or edema Reviewed, dictated and finalized at location A. Impression: 1: Progression of patchy bilateral airspace disease which may represent pneumon ia or edema
--- NOTE | ~2021-09-08 | XR_ITS ---
EXAMINATION: XR chest 2V DATE: 09/10/2021 10:04 INDICATION: Dyspnea. Oxygen desaturation. TECHNIQUE: Frontal and lateral views of the chest were obtained. COMPARISON: Chest single view 09/08/2021, chest CT 03/25/2019 FINDINGS: There are airspace opacities in the mid and lower lung zones. No pleural effusion or pneumo thorax of the heart size is normal. There is mild chronic anterior wedging of multiple midthoracic ve rtebral bodies. IMPRESSION: 1. Worsened airspace opacities in the mid and lower lung zones, consistent with atelectasis versus pn eumonia. Reviewed, dictated and finalized at location A. IMPRESSION: 1. Worsened airspace opacities in the mid and lower lung zones, consistent with atelectasis versus pneumonia.
--- NOTE | ~2021-09-08 | NM_ITS ---
NM pulmonary perfusion DATE: 09/08/2021 18:14 INDICATION: Shortness of breath. Elevated d-dimer. TECHNIQUE: A standard views of the lungs following intravenous injection of 3.14 mCi 99m technetium M AA. COMPARISON: 09/08/2021 portable AP chest FINDINGS: There is normal distribution of radiotracer throughout the lung fisher without evidence of any significant segmental or lobar perfusion abnormality. IMPRESSION: No evidence of clinically significant pulmonary embolism Reviewed, dictated and finalized at Location A. Reviewed, dictated and finalized at location A.
--- NOTE | ~2021-09-08 | US_ITS ---
EXAMINATION: US venous doppler [facility] DATE: 09/08/2021 16:36 INDICATION: Chest pain. TECHNIQUE: Grayscale ultrasound images without and with compression and Doppler ultrasound images of the bilateral lower extremity veins were obtained. COMPARISON: None. FINDINGS: The visualized portions of right common femoral vein, profunda (deep) femoral vein, femoral vein, pop liteal vein, peroneal veins, posterior tibial veins, and greater saphenous vein outflow are patent. The visualized portions of left common femoral vein, profunda femoral vein, femoral vein, popliteal v ein, peroneal veins, posterior tibial veins, and greater saphenous vein outflow are patent. IMPRESSION: 1. No deep venous thrombosis. Reviewed, dictated and finalized at location A.
--- NOTE | ~2021-09-08 | XR_ITS ---
EXAMINATION: XR chest 1V portable DATE: 09/08/2021 15:00 INDICATION: Chest pain and shortness of breath TECHNIQUE: frontal view of the chest was obtained. COMPARISON: Chest radiograph dated 07/19/2020 FINDINGS: The lungs remain clear with no focal airspace opacities, pulmonary edema, pleural effusion or pneumot horax. The cardiomediastinal silhouette is normal. IMPRESSION: 1. No acute cardiopulmonary disease. Reviewed, dictated and finalized at location A.
--- NOTE | ~2021-09-08 | XR_ITS ---
EXAMINATION: XR chest 1V portable INDICATION: Hypoxia TECHNIQUE: Portable AP chest at 1048 hours COMPARISON: 09/11/2021 FINDINGS: Patchy opacities persist throughout all lung zones but have improved. There is no pleural e ffusion or pneumothorax. The cardiomediastinal silhouette is stable. IMPRESSION: 1. Persistent but improved opacities of the lungs, consistent with resolving pneumonia versus pulmona ry edema. Reviewed, dictated and finalized at location B. IMPRESSION: 1. Persistent but improved opacities of the lungs, consistent with resolving pn eumonia versus pulmonary edema.
--- NOTE | ~2021-09-08 | CT_ITS ---
EXAMINATION: CT diagnostic chest wo con EXAM DATE: 09/19/2021 09:42 INDICATION: Shortness of breath. TECHNIQUE: Spiral CT of the chest without contrast. Axial, coronal and sagittal images of the chest were reviewed. Coronal maximum intensity pixel images of chest reviewed. The dose-length product ( DLP) for this examination was 395.70 mGy-cm. The exposure was tailored according to patient size (au to mA exposure control), and iterative reconstruction (ASIR) was used as additional dose reduction te chnique. Comparison is made to prior examination from 03/25/2019. FINDINGS: Multi segmental left lower lobe airspace disease, appearance most consistent with pneumoni a and atelectasis. Can't totally exclude underlying cancer, follow-up chest x-ray recommended in one month. There is small left parapneumonic effusion. Minimal amount of right-sided airspace disease. N o pericardial effusion. Tracheobronchial tree is patent. Right hilar opacity which could be postop erative scarring, appears unchanged compared to prior study. No thoracic lymphadenopathy. There is n o pneumothorax. Heart normal in size. Moderate left anterior descending coronary artery calcifica tions. Upper abdomen is unremarkable. No osteoblastic or osteolytic lesions identified. IMPRESSION: 1. Multi segmental left lower lobe atelectasis and pneumonia, small parapneumonic effusion. 2. Small amount of right lower lobe opacity. 3. Recommend one-month follow-up chest x-ray, consider 3 month follow-up chest CT. Reviewed, dictated and finalized at location . IMPRESSION: 1. Multi segmental left lower lobe atelectasis and pneumonia, small parapneumo wilmar effusion. 2. Small amount of right lower lobe opacity. 3. Recommend one-month follow-up chest x-ray, consider 3 month follow-up chest CT.
--- NOTE | 2021-09-08 14:20 | ECG_ITS ---
Measurements Intervals [place] Rate: 114 P: 61 [place]: 183 QRS: 5 QRSD: 97 T: 58 QT: 303 QTc: 417 Interpretive Statements SINUS TACHYCARDIA MINOR ST CHANGES COMPARED TO ECG 05/01/2021 12:35:37 SINUS TACHYCARDIA NOW PRESENT The previously noted anterolateral ST and T-wave changes have resolved. Electronically Signed On 09-08-2021 20:26:52 CDT by Mae Aquino M.D.
--- NOTE | 2021-09-08 14:41 | ED.GENADULT ---
HPI - General Adult General Chief complaint: Shortness of Breath/Dyspnea Stated complaint: sick x 3 days Time Seen by Provider: 09/08/21 14:19 Source: patient and RN notes reviewed Mode of arrival: EMS Limitations: no limitations History of Present Illness HPI narrative: This is a 61 year old male with multiple medical problems who presents for evaluation of fever, cough, sob. He developed symptoms on Monday. He has been having productive cough with phlegm . He reports having streaks of blood in his sputum this morning. He also reports nausea, vomiting and diarrhea for 3 days. HE is also complaining of right upper abdominal , lower chest pain today . He only has pain when he coughs. He developed a fever today so he came to ER. He also reports shortness of breath. His sister is at bedside and she believes his sickness is due to an oilspill in his back yard. Onset (ago): day(s) (3) Related Data Home Medications Medication Instructions Recorded Confirmed amlodipine 10 mg PO QAM 10/21/20 05/01/21 fenofibrate nanocrystallized 145 mg PO QAM 10/21/20 05/01/21 aspirin 81 mg tablet,delayed 81 mg PO QAM 10/30/20 05/01/21 release Allergies Allergy/AdvReac Type Severity Reaction Status Date / Time morphine Allergy Severe Unknown Verified 09/08/21 14:31 Penicillins Allergy Unknown Unknown Verified 09/08/21 14:31 Review of Systems Review of Systems: All systems reviewed & are unremarkable except as noted in HPI and below Constitutional: Constitutional: Reports chills and Reports fever(s) ENT: Reports nasal congestion Cardiovascular: Cardiovascular: Reports chest pain, Denies rapid heart rate and Denies radiating jaw, neck or arm pain Respiratory: Respiratory: Reports cough, Reports dyspnea and Denies wheezing Gastrointestinal: Gastrointestinal: Reports abdominal pain, Reports diarrhea, Reports nausea and Reports vomiting Neurologic: Reports headache(s) PMFSH Past Medical History Medical History Chronic back pain Cirrhosis Coughing Dizziness Hair loss Hepatitis C High cholesterol History of DVT (deep vein thrombosis) Patient denies any history of DVT or being on any anticoagulation Hypertension Kidney disease Olecranon bursitis of left elbow SOB (shortness of breath) Stroke Tobacco abuse Wears glasses Weight gain Wheezing Family History Family History (Updated 06/04/21 @ 08:29 by Ashley Nicholson RN) Mother Diabetes mellitus Heart disease Hypertension Father Diabetes mellitus Heart disease Kidney disorder Hypertension Sibling Cerebrovascular accident Other High cholesterol Social History Social History Smoking packs per day: 1 Smoking cigarettes per day: 20.0 Years smoked: 53 Smoking pack-years: 53.00 Smoking status: Current every day smoker Tobacco type: cigarettes Second hand tobacco smoke exposure: Yes (girlfriend also smokes he is currently active smoker 0.5 pkg/day) Alcohol intake: current Drinks per week: 5 Substance use: former Substance use type: marijuana, crack/cocaine and hallucinogens Last use: 2007 Gender identity (if verbalized by the patient): Male Spiritual care concerns: No Exam Const: General: no acute distress and alert Orientation/consciousness: patient oriented x3 Eyes: EOM: EOMs intact bilaterally Chest: Chest palpation & inspection: normal inspection of the chest Resp: Effort & Inspection: normal respiratory effort and no retractions Auscultation: clear to auscultation bilaterally Cardio: Rate: tachycardic Rhythm: regular rhythm Heart sounds: no murmurs GI: GI Palp: Yes Soft to palpation, No Tenderness to palpation present (GI) and No Guarding due to palpation present (GI) Auscultation: normal bowel sounds Back/Spine/Pelvis: Back: no CVA tenderness Skin: General skin exam: normal color R
[2021-09-08 14:52] LABS: Alveolar/Arterial O2 Gradient 59.1 mmHg; Base Excess ABG -2.5 mEq/l (+/-2.0); Carboxyhemoglobin 1.2 % THb (0-2.0); Fractional Inspired Oxygen 21 %; HCO3 ABG 19.7 mEq/l (22.0-26.0); Methemoglobin ABG 0.3 %THb (0-1.5); Modified Allen's Test Pass; Oxygen Content ABG 18.8 %vol (16.0-22.0); Oxygen Saturation ABG 91.8 % (95.0-100.0); Oxyhemoglobin 90.4 % THb (90.0-100.0); PO2 ABG 57.1 mmHg (80.0-100.0); PO2 FiO2 Ratio Arterial Blood 2.72 %; Reduced Hemoglobin 8.1 %THb (0-5.0); Site Drawn LEFT RADIAL; Total Hemoglobin 14.8 g/dL (12.0-18.0); pH ABG 7.466 (7.350-7.450)
[2021-09-08 14:53] LABS: Device ROOM AIR
[2021-09-08 15:10] LABS: Basophils Percent Auto 0.6 % (0.2-1.2); Eosinophils Absolute Auto 0.2 K/mm3 (0-0.3); Hematocrit 43.9 % (42.0-52.0); Hemoglobin 14.5 g/dL (14.0-18.0); Immature Granulocyte Absolute 0.02 K/mm3 (0.00-0.031); Immature Granulocyte Percent A 0.3 % (0-0.5); Lymphocytes Percent Auto 11.1 % (18.3-44.2); Mean Corpuscular Hemoglobin 30.3 pg (26-34); Mean Corpuscular Volume 91.8 fl (80-100); Mean Platelet Volume 10.8 fl (7.4-10.4); Monocytes Absolute Auto 0.7 K/mm3 (0.1-0.6); Monocytes Percent Auto 9.8 % (2.6-8.5); Neutrophils Absolute Auto 5.4 K/mm3 (1.3-6.7); Neutrophils Percent Auto 75.2 % (45.5-73.1); Platelet Count Result 204 k/mm3 (150-375); Red Blood Count 4.78 M/mm3 (4.6-6.20); Red Cell Distribution Width 14.2 % (11.5-14.5); White Blood Count 7.2 K/mm3 (4.5-10.0)
[2021-09-08 15:25] LABS: Alanine Aminotransferase 33 U/L (4-50); Albumin Level 4.7 g/dL (3.5-5.1); Alkaline Phosphatase 57 U/L (38-126); Anion Gap 8 mmol/L (8-16); Aspartate Amino Transferase 55 U/L (17-59); Bilirubin,Total 0.7 mg/dL (0.2-1.3); Blood Urea Nitrogen 25 mg/dL (9-20); Carbon Dioxide 21 mmol/L (22-30); Chloride 102 mmol/L (98-107); Estimated Glomerular Filt Rate 34; Glucose 112 mg/dL (65-110); Lipase 110 U/L (23-300); Potassium 3.8 mmol/L (3.4-5.0); Sodium 131 mmol/L (137-145)
[2021-09-08 15:32] LABS: Prothrombin Time 13.2 Seconds (11.1-14.7)
[2021-09-08 15:33] LABS: Partial Thromboplastin Time 28.6 SECONDS (22.3-36.8)
[2021-09-08 15:36] LABS: D Dimer 0.81 ug/mL (<0.48)
[2021-09-08] MEDS: SODIUM CHLORIDE 0.9% IV 1,000 ML 999 ML IV CONT ×2 (15:36→16:34)
[2021-09-08 15:38] LABS: Lactic Acid Reflex 1.2 mmol/L (0.7-2.1)
[2021-09-08 16:32] LABS: SARS-CoV-2 RNA PCR Negative
[2021-09-08 16:41] LABS: Influenza A QL RT-PCR Positive (Negative); Influenza B QL RT-PCR Negative (Negative)
--- NOTE | 2021-09-08 17:14 | PC.NURSE ---
URINAL GIVEN TO PATIENT TO ATTEMPT TO PROVIDE URINE SAMPLE
[2021-09-08 17:46] LABS: Add Urine Microscopic? YES; Appearance Urine Cloudy (Clear); Bilirubin Urine Negative (Negative); Blood Urine 1+ (Negative); Color Urine Yellow (Yellow); Glucose Urine UA Negative (Negative); Ketones Urine Trace mg/dL (Negative); Leukocyte Esterase Ur Negative LEU/UL (Negative); Mucus Urine Rare /lpf; Nitrate Urine Negative (Negative); Protein Urine Negative (Negative); RBC Urine 0-2 /hpf (0-2); Specific Grav Ur 1.024 (1.001-1.035); Squamous Epithelial Cell Urine Rare /hpf (Few); Urobilinogen Urine Negative mg/dL (<2.0)
[2021-09-08] MEDS: ALBUTEROL SULFATE (*SP) AEROSOL 1 PUFF 2 PUFF INHALATION (19:13)
[2021-09-08] MEDS: ALBUTEROL SULFATE (*SP) INHALER 1 PUFF (19:20)
--- NOTE | 2021-09-08 19:48 | ADMGEN ---
This patient, Frederick Jarvis, was admitted to Medical Room 257-01. Patient/family oriented to hospital policies and general routines including ID bracelet, bed and alarms, visiting hours, pain management, procedures, bathroom and other care routines, personal items, smoking policy, room service/diet, and visiting hours. Information on how to activate the Rapid Response Team has been discussed. Patient/Family are encouraged to report perceived risks to care and to ask questions if they do not understand what they are told or what they should do.
[2021-09-08] MEDS: SODIUM CHLORIDE 0.9% IV 1,000 ML 125 ML IV CONT (19:55)
--- NOTE | 2021-09-08 20:35 | PM.IMHP ---
H&P: HPI History of Present Illness Date/Time: 09/08/21 20:35 Chief Complaint: COUGH. Narrative: This is a 61-year-old male with past medical history significant for tobacco dependence, coronary artery disease, hepatitis-C, dyslipidemia, hypertension. Patient presented to the emergency room due to nausea vomiting diarrhea for the last 3 days or so as well as cough sputum production fevers and chills. Patient denies any chest pain, leg swelling, dizziness, lightheadedness, syncope or near syncope, no chest pain, no palpitations. Preliminary workup was significant for positive serology to influenza, chest x-ray was clear. Patient is been admitted for further evaluation, management and treatment. Review of Systems Review of Systems: Nausea, vomiting, diarrhea, chills, fevers, shortness of breath, productive cough. Constitutional: Constitutional: Reports chills and Reports fever(s) Eyes: Eyes: Denies change in vision ENT: Denies dysphagia, Denies vertigo, Denies dizziness, Denies nasal congestion, Denies nasal discharge, Denies nasal obstruction and Denies odynophagia Cardiovascular: Cardiovascular: Denies pedal edema, Denies leg ulcers, Denies leg edema, Denies radiating jaw, neck or arm pain, Denies palpitations, Denies dyspnea on exertion, Denies orthopnea and Denies paroxysmal nocturnal dyspnea Respiratory: Respiratory: Reports change in phlegm color, Reports cough, Reports excessive phlegm production and Reports dyspnea Gastrointestinal: Gastrointestinal: Reports abdominal pain, Denies dyspepsia, Denies heartburn, Reports diarrhea, Reports nausea and Reports vomiting Genitourinary: Genitourinary: Denies dysuria and Denies flank pain Musculoskeletal: Musculoskeletal: Denies back pain, Reports myalgias, Denies arthralgias and Denies joint swelling Integumentary/Breasts: Skin/Breast: Denies rash Neurologic: Denies vertigo, Denies dizziness, Denies focal weakness and Denies Sensory deficit (Neuro) Endocrine: Endocrine: Denies cold intolerance, Denies heat intolerance, Denies polyphagia, Denies polydipsia and Denies palpitations Hematologic/Lymphatic: Hematologic/Lymphatic: Reports no additional hematologic/lymphatic complaints and Reports as per HPI Allergic/Immunologic: Allergic/Immunologic: Reports no additional allergic/immunologic complaints and Reports as per HPI [facility] Past Medical History Medical History Chronic back pain Cirrhosis Coughing Dizziness Hair loss Hepatitis C High cholesterol History of DVT (deep vein thrombosis) Patient denies any history of DVT or being on any anticoagulation Hypertension Kidney disease Olecranon bursitis of left elbow SOB (shortness of breath) Stroke Tobacco abuse Wears glasses Weight gain Wheezing Family History Family History Mother Diabetes mellitus Heart disease Hypertension Father Diabetes mellitus Heart disease Kidney disorder Hypertension Sibling Cerebrovascular accident Other High cholesterol Social History Social History Smoking packs per day: 1 Smoking cigarettes per day: 20.0 Years smoked: 53 Smoking pack-years: 53.00 Smoking status: Current every day smoker Second hand tobacco smoke exposure: Yes (girlfriend also smokes he is currently active smoker 0.5 pkg/day) Alcohol intake: current Drinks per week: 1 Substance use: never Substance use type: marijuana, crack/cocaine and hallucinogens Last use: 2007 Gender identity (if verbalized by the patient): Male Spiritual care concerns: No Meds Home Medications and Allergies Home Medications Medication Instructions Recorded Confirmed Type amlodipine 10 mg PO QAM 10/21/20 09/08/21 History fenofibrate nanocrystallized 145 mg PO QAM 10/21/20 09/08/21 History aspirin 81 mg tablet,delayed 81 mg PO QAM 10/30/20 0
[2021-09-08] MEDS: OSELTAMIVIR PHOSPHATE 30 MG CAPSULE PO (22:34)
[2021-09-09] VITALS (14 sets, daily range): BP systolic 150–174; BP diastolic 58–75; PULSE 80–99; RESP 20; TEMP 37–38.6; O2SAT 86–93; BMI 29.3
[2021-09-09] MEDS: SODIUM CHLORIDE 0.9% IV 1,000 ML 125 ML IV CONT ×3 (05:18→20:59)
[2021-09-09] MEDS: guaiFENesin/DEXTROMETHORPHAN 10 ML UDC PO ×3 (05:19→18:48)
[2021-09-09 07:05] LABS: Basophils Percent Auto 0.3 % (0.2-1.2); Hemoglobin 12.5 g/dL (14.0-18.0); Immature Granulocyte Absolute 0.04 K/mm3 (0.00-0.031); Immature Granulocyte Percent A 0.5 % (0-0.5); Lymphocytes Absolute Auto 1.11 K/mm3 (0.9-3.2); Lymphocytes Percent Auto 14.5 % (18.3-44.2); Mean Corpuscular HGB Conc 32.1 g/dl (32-36); Mean Corpuscular Hemoglobin 29.8 pg (26-34); Mean Corpuscular Volume 93.1 fl (80-100); Mean Platelet Volume 10.8 fl (7.4-10.4); Monocytes Absolute Auto 0.6 K/mm3 (0.1-0.6); Monocytes Percent Auto 8.2 % (2.6-8.5); Neutrophils Absolute Auto 5.9 K/mm3 (1.3-6.7); Neutrophils Percent Auto 76.5 % (45.5-73.1); Platelet Count Result 187 k/mm3 (150-375); Red Blood Count 4.19 M/mm3 (4.6-6.20); Red Cell Distribution Width 14.5 % (11.5-14.5); White Blood Count 7.7 K/mm3 (4.5-10.0)
[2021-09-09 07:17] LABS: Alanine Aminotransferase 29 U/L (4-50); Alkaline Phosphatase 45 U/L (38-126); Anion Gap 10 mmol/L (8-16); Aspartate Amino Transferase 57 U/L (17-59); Bilirubin,Total 0.7 mg/dL (0.2-1.3); Blood Urea Nitrogen 21 mg/dL (9-20); Carbon Dioxide 17 mmol/L (22-30); Chloride 105 mmol/L (98-107); Estimated CRCL calculation 51 ml/min; Estimated Glomerular Filt Rate 44; Glucose 127 mg/dL (65-110); Potassium 3.5 mmol/L (3.4-5.0); Sodium 132 mmol/L (137-145)
[2021-09-09] MEDS: TICAGRELOR 90 MG TABLET PO ×2 (08:15→20:19)
[2021-09-09] MEDS: METOPROLOL TARTRATE 12.5 MG TABLET PO ×2 (08:16→20:19)
[2021-09-09] MEDS: amLODIPine BESYLATE 5 MG TABLET 10 MG PO (08:17)
[2021-09-09] MEDS: ATORVASTATIN 40 MG TABLET PO (08:17)
[2021-09-09] MEDS: FENOFIBRATE NANOCRYSTALLIZED 145 MG TABLET PO (08:17)
[2021-09-09] MEDS: ASPIRIN 81 MG ENTERIC TABLET PO (08:18)
[2021-09-09] MEDS: OSELTAMIVIR PHOSPHATE 30 MG CAPSULE PO ×2 (08:18→20:19)
[2021-09-09] MEDS: LOPERAMIDE HCL 2 MG CAPSULE PO (10:12)
--- NOTE | 2021-09-09 12:47 | PC.NURSE ---
On 09/09/21, the student, [Cassidy Farrar], provided care and completed [facility] documentation on this patient. I have reviewed the student's documentation and agree with the findings.
[2021-09-09] MEDS: HYDROcodone/acetaminophen (*CRX) 5-325 MG TABLET 1 TAB PO ×2 (13:46→18:48)
--- NOTE | 2021-09-09 14:04 | PM.IMPN ---
Progress Note: A&P Assessment and Plan (1) Coronary artery disease: Code(s): I25.10 - Atherosclerotic heart disease of [place] coronary artery without angina pectoris Status: Acute (2) Nausea vomiting and diarrhea: Code(s): R11.2 - Nausea with vomiting, unspecified; R19.7 - Diarrhea, unspecified Status: Acute (3) Influenza A: Code(s): J10.1 - Influenza due to other identified influenza virus with other respiratory manifestations Status: Acute (4) Tobacco dependence: Code(s): F17.200 - Nicotine dependence, unspecified, uncomplicated Status: Acute (5) Severe sepsis: Code(s): A41.9 - Sepsis, unspecified organism; R65.20 - Severe sepsis without septic shock Status: Acute (6) Opjpo-yz-xhfarrt kidney injury: Code(s): N17.9 - Acute kidney failure, unspecified; N18.9 - Chronic kidney disease, unspecified Status: Acute Additional Plan # influenza A -continue Tamiflu -will give some Imodium for the diarrhea -Zofran for nausea # acute kidney injury -likely prerenal setting of fluid, continue IV fluid hydration normal saline -creatinine 1.6 # other chronic conditions -essential hypertension continue amlodipine 10 mg daily, metoprolol tartrate -nicotine dependence: Will give nicotine patch, smokes 1.5 pack per day -hyperlipidemia, CAD: Continue Lipitor, fenofibrate, aspirin, metoprolol, Brilinta Diet: Heart healthy DVT prophylaxis: heparin Code status: Full code Disposition: Home in 1-3 days Time Spent With Patient Time with patient: 25 - 35 minutes Subjective Date/time seen: 09/09/21 14:04 Patient seen and examined. He is being treated for influenza A with Tamiflu. Continue IV hydration for RONY, creatinine 1.6 today. For his diarrhea likely from his flu infection will give Imodium. Other labs are stable. Will follow with repeat labs tomorrow. Patient denies fever, chills, nausea, vomiting. Endorses diarrhea. Review of Systems Review of Systems: All systems reviewed & are unremarkable except as noted in HPI and below Exam Narrative: - GENERAL: Pleasant male in no acute distress. - EYES: EOMI. Anicteric. - HENT: Moist mucous membranes. - LUNGS: Clear to auscultation bilaterally, no wheezing, rhonchi, or rales. Normal respiratory effort - CARDIOVASCULAR: Regular rate and rhythm. No murmur. No JVD. - ABDOMEN: Soft, non-tender and non-distended. No palpable masses. - EXTREMITIES: No edema. Peripheral pulses 2+. Non-tender. - NEUROLOGIC: No focal neurological deficits. CN II-XII grossly intact. - PSYCHIATRIC: Awake, Alert and oriented x 3. Appropriate mood and affect. - SKIN: No rashes or lesions. Warm. - LYMPH: No cervical lymphadenopathy. Objective Data Vital Signs Vital Signs: Vital Signs - 24 hr 09/08/21 14:17 09/08/21 14:21 09/08/21 14:31 Temperature 39.1 C H Pulse Rate 118 H 117 H 113 H Respiratory Rate 21 H 33 H Blood Pressure 133/77 142/72 H Pulse Oximetry 94 94 09/08/21 15:00 09/08/21 15:15 09/08/21 15:21 Temperature Pulse Rate 111 H 111 H 107 H Respiratory Rate 24 H 12 17 Blood Pressure 128/61 Pulse Oximetry 97 96 95 09/08/21 15:30 09/08/21 15:31 09/08/21 15:45 Temperature Pulse Rate 103 H 106 H 104 H Respiratory Rate 21 H 31 H 27 H Blood Pressure 129/60 Pulse Oximetry 96 99 94 09/08/21 16:00 09/08/21 16:15 09/08/21 16:16 Temperature Pulse Rate 100 91 Respiratory Rate 32 H 24 H 35 H Blood Pressure 140/69 Pulse Oximetry 95 96 98 09/08/21 16:30 09/08/21 16:45 09/08/21 17:00 Temperature Pulse Rate 92 88 91 Respiratory Rate 41 H 33 H 28 H Blood Pressure Pulse Oximetry 97 97 09/08/21 17:01 09/08/21 17:02 09/08/21 18:28 Temperature Pulse Rate 95 93 96 Respiratory Rate 30 H 37 H 26 H Blood Pressure 164/150 H 191/84 H Pulse Oximetry 99 96 98 09/08/21 19:08 09/08/21 19:18 09/08/21 19:32 Temperature 38.1 C H Pulse Rate 98 100 103 H Respiratory Rate 30 H 2
[2021-09-09] MEDS: NICOTINE (*PBKC) 21 MG PATCH 1 PATCH TRANSDERM (14:46)
[2021-09-09] MEDS: HEPARIN SODIUM 5,000 UNITS/ML VIAL 5000 UNITS SUB-Q (20:19)
[2021-09-09] MEDS: ACETAMINOPHEN 500 MG TABLET 1000 MG PO (20:59)
[2021-09-09] MEDS: ALBUTEROL SULFATE NEB 2.5 MG/0.5 ML INH INHALATION (21:05)
[2021-09-09] MEDS: IPRATROPIUM BR 0.02% INH SOLN 0.5 MG/2.5 ML VIAL INHALATION (21:05)
[2021-09-10] VITALS (22 sets, daily range): BP systolic 164–180; BP diastolic 68–80; PULSE 76–104; RESP 18–26; TEMP 37.1–38.4; O2SAT 90–96
[2021-09-10] MEDS: ALBUTEROL SULFATE NEB 2.5 MG/0.5 ML INH INHALATION ×7 (00:30→23:47)
[2021-09-10] MEDS: IPRATROPIUM BR 0.02% INH SOLN 0.5 MG/2.5 ML VIAL INHALATION ×7 (00:30→23:47)
[2021-09-10] MEDS: guaiFENesin/DEXTROMETHORPHAN 10 ML UDC PO ×3 (01:40→23:19)
[2021-09-10] MEDS: SODIUM CHLORIDE 0.9% IV 1,000 ML 125 ML IV CONT (05:16)
[2021-09-10 06:05] LABS: Anion Gap 8 mmol/L (8-16); Blood Urea Nitrogen 14 mg/dL (9-20); Carbon Dioxide 19 mmol/L (22-30); Chloride 107 mmol/L (98-107); Estimated CRCL calculation 67 ml/min; Estimated Glomerular Filt Rate > 60; Glucose 107 mg/dL (65-110); Magnesium 1.9 mg/dL (1.6-2.3); Potassium 3.6 mmol/L (3.4-5.0); Sodium 134 mmol/L (137-145)
[2021-09-10 07:55] LABS: Basophils Percent Auto 0.3 % (0.2-1.2); Hematocrit 40.4 % (42.0-52.0); Immature Granulocyte Absolute 0.03 K/mm3 (0.00-0.031); Immature Granulocyte Percent A 0.4 % (0-0.5); Lymphocytes Absolute Auto 1.33 K/mm3 (0.9-3.2); Lymphocytes Percent Auto 17.1 % (18.3-44.2); Mean Corpuscular HGB Conc 32.2 g/dl (32-36); Mean Corpuscular Volume 93.1 fl (80-100); Mean Platelet Volume 11.3 fl (7.4-10.4); Monocytes Absolute Auto 0.6 K/mm3 (0.1-0.6); Monocytes Percent Auto 7.6 % (2.6-8.5); Neutrophils Absolute Auto 5.8 K/mm3 (1.3-6.7); Neutrophils Percent Auto 74.6 % (45.5-73.1); Platelet Count Result 182 k/mm3 (150-375); Red Blood Count 4.34 M/mm3 (4.6-6.20); Red Cell Distribution Width 14.5 % (11.5-14.5); White Blood Count 7.8 K/mm3 (4.5-10.0)
[2021-09-10] MEDS: amLODIPine BESYLATE 5 MG TABLET 10 MG PO (08:54)
[2021-09-10] MEDS: METOPROLOL TARTRATE 12.5 MG TABLET PO ×2 (08:54→20:27)
[2021-09-10] MEDS: TICAGRELOR 90 MG TABLET PO ×2 (08:54→20:27)
[2021-09-10] MEDS: ATORVASTATIN 40 MG TABLET PO (08:54)
[2021-09-10] MEDS: OSELTAMIVIR PHOSPHATE 30 MG CAPSULE PO (08:54)
[2021-09-10] MEDS: FENOFIBRATE NANOCRYSTALLIZED 145 MG TABLET PO (08:54)
[2021-09-10] MEDS: NICOTINE (*PBKC) 21 MG PATCH 1 PATCH TRANSDERM (08:56)
[2021-09-10] MEDS: ASPIRIN 81 MG ENTERIC TABLET PO (08:56)
[2021-09-10] MEDS: HEPARIN SODIUM 5,000 UNITS/ML VIAL 5000 UNITS SUB-Q ×2 (08:57→20:27)
--- NOTE | 2021-09-10 12:19 | PM.IMPN ---
Progress Note: A&P Assessment and Plan (1) Coronary artery disease: Code(s): I25.10 - Atherosclerotic heart disease of [place] coronary artery without angina pectoris Status: Acute (2) Nausea vomiting and diarrhea: Code(s): R11.2 - Nausea with vomiting, unspecified; R19.7 - Diarrhea, unspecified Status: Acute (3) Influenza A: Code(s): J10.1 - Influenza due to other identified influenza virus with other respiratory manifestations Status: Acute (4) Pneumonia: Code(s): J18.9 - Pneumonia, unspecified organism Status: Acute Additional Plan # pneumonia after influenza -chest x-ray obtained: Concerns for worsening opacities atelectasis versus pneumonia -with cough and tachypnea, patient likely has pneumonia -antibiotics: Starting Bactrim will have MRSA coverage for influenza associated pneumonia -pulmonary toilet, incentive spirometer ordered # influenza A -continue Tamiflu, adjust dosing as patient has RONY has resolved -will give some Imodium for the diarrhea -Zofran for nausea # acute kidney injury -creatinine improved, normalized, stopping IV fluids # other chronic conditions -essential hypertension continue amlodipine 10 mg daily, metoprolol tartrate -nicotine dependence: Will give nicotine patch, smokes 1.5 pack per day -hyperlipidemia, CAD: Continue Lipitor, fenofibrate, aspirin, metoprolol, Brilinta Diet: Heart healthy DVT prophylaxis: heparin Code status: Full code Disposition: home in 2-3 days Time Spent With Patient Time with patient: 25 - 35 minutes Subjective Date/time seen: 09/10/21 12:19 Overnight patient became hypoxic O2 saturation 86% on room air and placed on 2 L of oxygen. This morning he had increased work of breathing. Chest x-ray today obtained with findings concerning for pneumonia. Patient may have post flu pneumonia, will cover with MRSA adding Bactrim. Will need to continue monitoring in hospital with this clinical decompensation. RONY resolved, stop IVF. With RONY resolved will adjust Tamiflu dosing. Will continue monitoring inpatient. Patient endorses dyspnea and increased work of breathing. Ordered incentive spirometer and chest PT. Review of Systems Review of Systems: All systems reviewed & are unremarkable except as noted in HPI and below Exam Narrative: - GENERAL: Pleasant male with increased work of breathing, mild respiratory failure. - EYES: EOMI. Anicteric. - HENT: Moist mucous membranes. - LUNGS: Clear to auscultation bilaterally, no wheezing, rhonchi, or rales. Labored respirations. Now on 2 L of oxygen via nasal cannula - CARDIOVASCULAR: Regular rate and rhythm. No murmur. No JVD. - ABDOMEN: Soft, non-tender and non-distended. No palpable masses. - EXTREMITIES: No edema. Peripheral pulses 2+. Non-tender. - NEUROLOGIC: No focal neurological deficits. CN II-XII grossly intact. - PSYCHIATRIC: Awake, Alert and oriented x 3. Appropriate mood and affect. - SKIN: No rashes or lesions. Warm. - LYMPH: No cervical lymphadenopathy. Objective Data Vital Signs Vital Signs: Vital Signs - 24 hr 09/09/21 14:00 09/09/21 20:00 09/09/21 20:19 Temperature Pulse Rate 83 89 Respiratory Rate 20 Blood Pressure 155/58 H Pulse Oximetry 92 91 09/09/21 20:26 09/09/21 20:59 09/09/21 21:05 Temperature 37.7 C H 37.7 C H Pulse Rate 89 80 Respiratory Rate 20 20 Blood Pressure 150/70 H Pulse Oximetry 86 L 09/09/21 21:15 09/09/21 21:57 09/10/21 00:30 Temperature 37.4 C Pulse Rate 83 86 Respiratory Rate 20 20 Blood Pressure Pulse Oximetry 90 09/10/21 00:40 09/10/21 04:51 09/10/21 05:56 Temperature 37.6 C H Pulse Rate 87 92 89 Respiratory Rate 20 21 H 20 Blood Pressure 180/80 H Pulse Oximetry 92 09/10/21 07:00 09/10/21 08:10 09/10/21 08:15 Temperature Pulse Rate 86 76 Respiratory Rate 20 20 Blood Pressure Pulse Oximetry 96 96 09/10/21 08:21 09/10/21 08:23 09/10/21 08:54 [place]
--- NOTE | 2021-09-10 14:04 | PC.NURSE ---
On 09/10/21, the student, [Jennifer Borrego, Lowell Garcia], provided care and completed [facility] documentation on this patient. I have reviewed the student's documentation and agree with the findings.
[2021-09-10] MEDS: HYDROcodone/acetaminophen (*CRX) 5-325 MG TABLET 1 TAB PO (18:03)
[2021-09-10] MEDS: OSELTAMIVIR PHOSPHATE 75 MG CAPSULE PO (20:27)
[2021-09-11] VITALS (26 sets, daily range): BP systolic 146–165; BP diastolic 66–78; PULSE 77–97; RESP 16–30; TEMP 36.3–37.2; O2SAT 86–96
[2021-09-11] MEDS: ALBUTEROL SULFATE NEB 2.5 MG/0.5 ML INH INHALATION ×6 (04:06→23:58)
[2021-09-11] MEDS: IPRATROPIUM BR 0.02% INH SOLN 0.5 MG/2.5 ML VIAL INHALATION ×6 (04:06→23:58)
[2021-09-11] MEDS: guaiFENesin/DEXTROMETHORPHAN 10 ML UDC PO ×3 (04:50→15:11)
[2021-09-11 05:33] LABS: Hematocrit 35.6 % (42.0-52.0); Mean Corpuscular HGB Conc 33.7 g/dl (32-36); Mean Corpuscular Hemoglobin 29.9 pg (26-34); Mean Corpuscular Volume 88.6 fl (80-100); Mean Platelet Volume 10.9 fl (7.4-10.4); Platelet Count Result 180 k/mm3 (150-375); Red Blood Count 4.02 M/mm3 (4.6-6.20); Red Cell Distribution Width 14.4 % (11.5-14.5); White Blood Count 7.5 K/mm3 (4.5-10.0)
[2021-09-11 05:47] LABS: Anion Gap 5 mmol/L (8-16); Blood Urea Nitrogen 12 mg/dL (9-20); Calcium 8.2 mg/dL (8.4-10.2); Carbon Dioxide 24 mmol/L (22-30); Chloride 105 mmol/L (98-107); Estimated CRCL calculation 58 ml/min; Estimated Glomerular Filt Rate 52; Glucose 145 mg/dL (65-110); Potassium 3.1 mmol/L (3.4-5.0); Sodium 134 mmol/L (137-145)
[2021-09-11] MEDS: POTASSIUM CHLORIDE 20 MEQ TABLET 40 MEQ PO ×2 (08:38→15:08)
[2021-09-11] MEDS: METOPROLOL TARTRATE 12.5 MG TABLET PO ×2 (08:38→20:13)
[2021-09-11] MEDS: OSELTAMIVIR PHOSPHATE 75 MG CAPSULE PO ×2 (08:39→20:13)
[2021-09-11] MEDS: ATORVASTATIN 40 MG TABLET PO (08:39)
[2021-09-11] MEDS: FENOFIBRATE NANOCRYSTALLIZED 145 MG TABLET PO (08:39)
[2021-09-11] MEDS: TICAGRELOR 90 MG TABLET PO ×2 (08:39→20:13)
[2021-09-11] MEDS: HEPARIN SODIUM 5,000 UNITS/ML VIAL 5000 UNITS SUB-Q ×2 (08:39→20:13)
[2021-09-11] MEDS: NICOTINE (*PBKC) 21 MG PATCH 1 PATCH TRANSDERM (08:39)
[2021-09-11] MEDS: amLODIPine BESYLATE 5 MG TABLET 10 MG PO (08:39)
[2021-09-11] MEDS: ASPIRIN 81 MG ENTERIC TABLET PO (08:40)
--- NOTE | 2021-09-11 10:26 | PM.IMPN ---
Progress Note: A&P Assessment and Plan (1) Pneumonia: Code(s): J18.9 - Pneumonia, unspecified organism Status: Acute (2) Coronary artery disease: Code(s): I25.10 - Atherosclerotic heart disease of [place] coronary artery without angina pectoris Status: Acute (3) Nausea vomiting and diarrhea: Code(s): R11.2 - Nausea with vomiting, unspecified; R19.7 - Diarrhea, unspecified Status: Acute (4) Influenza A: Code(s): J10.1 - Influenza due to other identified influenza virus with other respiratory manifestations Status: Acute (5) Tobacco dependence: Code(s): F17.200 - Nicotine dependence, unspecified, uncomplicated Status: Acute (6) Severe sepsis: Code(s): A41.9 - Sepsis, unspecified organism; R65.20 - Severe sepsis without septic shock Status: Acute (7) Influenza A: Code(s): J10.1 - Influenza due to other identified influenza virus with other respiratory manifestations Status: Acute (8) [place] kidney injury: Code(s): N17.9 - Acute kidney failure, unspecified; N18.9 - Chronic kidney disease, unspecified Status: Acute Additional Plan # hospital-acquired pneumonia -chest x-ray obtained: Concerns for worsening opacities atelectasis versus pneumonia -with productive cough and tachypnea, patient likely has pneumonia after influenza -antibiotics: Yesterday started on Bactrim however with worsening rhonchorous lung sounds respiratory failure, changing to vancomycin and cefepime -continue pulmonary toilet, incentive spirometer -ordered sputum cultures, blood cultures # influenza A -continue Tamiflu for 5 day course -Zofran for nausea # acute kidney injury -pre-renal, normalizing # hypokalemia -potassium 3.1, requesting giving 40 mEq x2 # other chronic conditions -essential hypertension continue amlodipine 10 mg daily, metoprolol tartrate -nicotine dependence: Will give nicotine patch, smokes 1.5 pack per day -hyperlipidemia, CAD: Continue Lipitor, fenofibrate, aspirin, metoprolol, Brilinta Diet: Heart healthy DVT prophylaxis: heparin Code status: Full code Disposition: Pending course, acutely worsening anticipate greater than 2 days Time Spent With Patient Time with patient: 25 - 35 minutes Subjective Date/time seen: 03/19/22 10:26 Patient seen examined. His lungs are increasedly rhonchorous, increased tachypnea. Overnight oxygen increased to 4 L. switch antibiotics from Bactrim to vanc and cefepime. Discussed with nurse. Patient denies fever, chills, chest pain abdominal pain. He endorses dyspnea, cough with white sputum production, generalized weakness. Review of Systems Review of Systems: All systems reviewed & are unremarkable except as noted in HPI and below Exam Narrative: - GENERAL: Pleasant obese male with increased work of breathing, mild respiratory failure. - EYES: EOMI. Anicteric. - HENT: Moist mucous membranes. - LUNGS: Rhonchorous throughout, respiratory distress on 4 L of oxygen. Labored respirations, tachypnea. - CARDIOVASCULAR: Regular rate and rhythm. No murmur. No JVD. - ABDOMEN: Soft, non-tender and non-distended. No palpable masses. - EXTREMITIES: No edema. Peripheral pulses 2+. Non-tender. - NEUROLOGIC: No focal neurological deficits. CN II-XII grossly intact. - PSYCHIATRIC: Awake, Alert and oriented x 3. Appropriate mood and affect. - SKIN: No rashes or lesions. Warm. - LYMPH: No cervical lymphadenopathy. Objective Data Vital Signs Vital Signs: Vital Signs - 24 hr 09/10/21 12:55 09/10/21 13:10 09/10/21 14:00 Temperature 37.1 C Pulse Rate 77 80 96 Respiratory Rate 20 20 20 Blood Pressure 164/68 H Pulse Oximetry 92 09/10/21 16:25 09/10/21 16:35 09/10/21 19:21 Temperature 38.4 C H Pulse Rate 79 81 104 H Respiratory Rate 20 20 20 Blood Pressure 168/73 H Pulse Oximetry 90 09/10/21 20:00 09/10/21 20:12 09/10/21 20:20 Temperature Pulse Rate 104 H 103 H
[2021-09-11] MEDS: SALINE 0.65% NAS SOLN 44 ML BTL 1 SPRAY NASAL (10:39)
[2021-09-11] MEDS: WATER FOR IRRIGATION, STERILE 1,000 ML BOTTLE 1000 ML (11:18)
[2021-09-11 11:37] LABS: Alveolar/Arterial O2 Gradient 471.5 mmHg; Base Excess ABG -0.5 mEq/l (+/-2.0); Fractional Inspired Oxygen 80 %; Oxygen Content ABG 16.9 %vol (16.0-22.0); Oxygen Saturation ABG 94.9 % (95.0-100.0); Oxyhemoglobin 92.9 % THb (90.0-100.0); PCO2 ABG 30.1 mmHg (35.0-45.0); PO2 ABG 67.3 mmHg (80.0-100.0); PO2 FiO2 Ratio Arterial Blood 0.84 %; Total Hemoglobin 12.9 g/dL (12.0-18.0); pH ABG 7.482 (7.350-7.450)
[2021-09-11 11:38] LABS: Modified Allen's Test Pass; Site Drawn RIGHT RADIAL
[2021-09-11 11:39] LABS: Device HIGH FLOW NASAL CANN
--- NOTE | 2021-09-11 12:26 | PC.NURSE ---
This patient, Frederick Jarvis, was transferred to IMU on 09/11/21 at 1210. Personal belongings sent with patient. Report given to SAURABH eJtt. Appropriate documentation sent with patient.
[2021-09-11] MEDS: FLUTICASONE PROPIONATE 0.05% NA SPR 16 GM BTL (*BKC) 2 SPRAY NASAL (15:08)
[2021-09-12] VITALS (23 sets, daily range): BP systolic 130–177; BP diastolic 68–81; PULSE 67–93; RESP 20–28; TEMP 36.3–37.2; O2SAT 90–98
[2021-09-12] MEDS: guaiFENesin/DEXTROMETHORPHAN 10 ML UDC PO ×3 (04:24→20:59)
[2021-09-12 04:38] LABS: Basophils Percent Auto 0.1 % (0.2-1.2); Eosinophils Percent Auto 0.1 % (0-4.4); Hematocrit 37.1 % (42.0-52.0); Hemoglobin 12.4 g/dL (14.0-18.0); Immature Granulocyte Absolute 0.04 K/mm3 (0.00-0.031); Immature Granulocyte Percent A 0.6 % (0-0.5); Lymphocytes Absolute Auto 1.28 K/mm3 (0.9-3.2); Lymphocytes Percent Auto 19.1 % (18.3-44.2); Mean Corpuscular HGB Conc 33.4 g/dl (32-36); Mean Corpuscular Hemoglobin 29.8 pg (26-34); Mean Corpuscular Volume 89.2 fl (80-100); Monocytes Absolute Auto 0.8 K/mm3 (0.1-0.6); Monocytes Percent Auto 11.2 % (2.6-8.5); Neutrophils Absolute Auto 4.6 K/mm3 (1.3-6.7); Neutrophils Percent Auto 68.9 % (45.5-73.1); Platelet Count Result 211 k/mm3 (150-375); Red Blood Count 4.16 M/mm3 (4.6-6.20); Red Cell Distribution Width 14.5 % (11.5-14.5); White Blood Count 6.7 K/mm3 (4.5-10.0)
[2021-09-12 04:52] LABS: Alanine Aminotransferase 24 U/L (4-50); Albumin Level 3.6 g/dL (3.5-5.1); Alkaline Phosphatase 52 U/L (38-126); Anion Gap 8 mmol/L (8-16); Aspartate Amino Transferase 45 U/L (17-59); Bilirubin,Total 0.5 mg/dL (0.2-1.3); Blood Urea Nitrogen 13 mg/dL (9-20); Calcium 8.5 mg/dL (8.4-10.2); Carbon Dioxide 23 mmol/L (22-30); Chloride 105 mmol/L (98-107); Estimated CRCL calculation 62 ml/min; Estimated Glomerular Filt Rate 56; Glucose 112 mg/dL (65-110); Magnesium 2.1 mg/dL (1.6-2.3); Potassium 3.8 mmol/L (3.4-5.0); Sodium 136 mmol/L (137-145)
[2021-09-12] MEDS: IPRATROPIUM BR 0.02% INH SOLN 0.5 MG/2.5 ML VIAL INHALATION ×3 (08:15→20:22)
[2021-09-12] MEDS: ALBUTEROL SULFATE NEB 2.5 MG/0.5 ML INH INHALATION ×4 (08:15→20:22)
[2021-09-12] MEDS: polyethylene glycoL 3350 17 GM POWD.PACK PO (09:53)
[2021-09-12] MEDS: HEPARIN SODIUM 5,000 UNITS/ML VIAL 5000 UNITS SUB-Q ×2 (09:54→20:19)
[2021-09-12] MEDS: METOPROLOL TARTRATE 12.5 MG TABLET PO ×2 (09:54→20:19)
[2021-09-12] MEDS: ASPIRIN 81 MG ENTERIC TABLET PO (09:54)
[2021-09-12] MEDS: FENOFIBRATE NANOCRYSTALLIZED 145 MG TABLET PO (09:54)
[2021-09-12] MEDS: OSELTAMIVIR PHOSPHATE 75 MG CAPSULE PO ×2 (09:55→20:19)
[2021-09-12] MEDS: NICOTINE (*PBKC) 21 MG PATCH 1 PATCH TRANSDERM (09:55)
[2021-09-12] MEDS: ATORVASTATIN 40 MG TABLET PO (09:55)
[2021-09-12] MEDS: TICAGRELOR 90 MG TABLET PO ×2 (09:55→20:19)
[2021-09-12] MEDS: amLODIPine BESYLATE 5 MG TABLET 10 MG PO (09:55)
[2021-09-12] MEDS: FLUTICASONE PROPIONATE 0.05% NA SPR 16 GM BTL (*BKC) 2 SPRAY NASAL (09:56)
--- NOTE | 2021-09-12 11:19 | PM.IMPN ---
Progress Note: A&P Assessment and Plan (1) Pneumonia: Code(s): J18.9 - Pneumonia, unspecified organism Status: Acute (2) Coronary artery disease: Code(s): I25.10 - Atherosclerotic heart disease of [place] coronary artery without angina pectoris Status: Acute (3) Nausea vomiting and diarrhea: Code(s): R11.2 - Nausea with vomiting, unspecified; R19.7 - Diarrhea, unspecified Status: Acute (4) Influenza A: Code(s): J10.1 - Influenza due to other identified influenza virus with other respiratory manifestations Status: Acute (5) Tobacco dependence: Code(s): F17.200 - Nicotine dependence, unspecified, uncomplicated Status: Acute Additional Plan # hospital-acquired pneumonia -chest x-ray yesterday: Concerns for worsening opacities atelectasis versus pneumonia -with productive cough and tachypnea, patient likely has superimposed pneumonia on influenza -antibiotics: day 2 of vanc/cefepime -appears to be improving now with productive sputum -continue pulmonary toilet, incentive spirometer -ordered sputum cultures, blood cultures -wean o2 as tolerated, 15L NC, goal SpO2 > 90% # influenza A -continue Tamiflu for 5 day course -Zofran for nausea # acute kidney injury, resolved -likely pre-renal, resolved # hypokalemia, resolved -repleting as needed, likely secondary to PO intake # other chronic conditions -essential hypertension continue amlodipine 10 mg daily, metoprolol tartrate -nicotine dependence: Will give nicotine patch, smokes 1.5 pack per day -hyperlipidemia, CAD: Continue Lipitor, fenofibrate, aspirin, metoprolol, Brilinta Diet: Heart healthy DVT prophylaxis: heparin Code status: Full code Disposition: Pending course, anticipate >3 days Time Spent With Patient Time with patient: 25 - 35 minutes Subjective Date/time seen: 09/12/21 11:19 Patient seen and examined. No overnight events. He states he is now able to cough of sputum. He is continuing on 15L HFNC with O2 saturation around 91%, he was on NRB to get up to 94%, and I discussed with nurse our goal is >90 so we can try off the NRB. We changed to vanc/cefepime yesterday, and continue monitoring. Despite no leukocytosis, he appears to have PNA with now being able to cough up sputum. Sputum culture has been ordered, I advised nurse to provide sputum cup so we can collect sputum next time he has to cough. He denies fever, chills, nausea, vomiting, diarrhea, chest pain. He endorses productive cough and dyspnea. Review of Systems Review of Systems: All systems reviewed & are unremarkable except as noted in HPI and below Exam Narrative: - GENERAL: Pleasant obese male ill appearing with mild respiratory failure. - EYES: EOMI. Anicteric. - HENT: Moist mucous membranes. - LUNGS: Rhonchorous throughout (improved from yesterday), respiratory distress on 15 L of oxygen. tachypnea. - CARDIOVASCULAR: Regular rate and rhythm. No murmur. No JVD. - ABDOMEN: Soft, non-tender and non-distended. No palpable masses. - EXTREMITIES: No edema. Peripheral pulses 2+. Non-tender. - NEUROLOGIC: No focal neurological deficits. CN II-XII grossly intact. - PSYCHIATRIC: Awake, Alert and oriented x 3. Appropriate mood and affect. - SKIN: No rashes or lesions. Warm. - LYMPH: No cervical lymphadenopathy. Objective Data Vital Signs Vital Signs: Vital Signs - 24 hr 09/11/21 11:20 09/11/21 12:00 09/11/21 12:17 Temperature Pulse Rate 97 89 Respiratory Rate 28 H Blood Pressure Pulse Oximetry 90 09/11/21 12:42 09/11/21 14:00 09/11/21 15:51 Temperature 36.8 C Pulse Rate 88 87 90 Respiratory Rate 22 H 22 H Blood Pressure 146/69 H Pulse Oximetry 96 92 09/11/21 16:00 09/11/21 16:01 09/11/21 18:00 Temperature 36.7 C Pulse Rate 85 90 86 Respiratory Rate 20 22 H Blood Pressure 165/75 H Pulse Oximetry 94 09/11/21 20:00 09/11/21 20:13 09/11/21 20:35 Temperature 37.2 C Pulse Rate 82 90 89 Respira
[2021-09-12] MEDS: HYDROcodone/acetaminophen (*CRX) 5-325 MG TABLET 1 TAB PO (18:13)
[2021-09-13] VITALS (26 sets, daily range): BP systolic 134–169; BP diastolic 74–81; PULSE 60–92; RESP 20–28; TEMP 36.4–37.1; O2SAT 90–98
[2021-09-13] MEDS: IPRATROPIUM BR 0.02% INH SOLN 0.5 MG/2.5 ML VIAL INHALATION ×6 (00:37→20:30)
[2021-09-13] MEDS: ALBUTEROL SULFATE NEB 2.5 MG/0.5 ML INH INHALATION ×6 (00:38→20:30)
[2021-09-13] MEDS: guaiFENesin/DEXTROMETHORPHAN 10 ML UDC PO ×4 (03:09→20:53)
[2021-09-13 04:51] LABS: Basophils Percent Auto 0.3 % (0.2-1.2); Eosinophils Percent Auto 0.3 % (0-4.4); Hematocrit 35.3 % (42.0-52.0); Hemoglobin 11.5 g/dL (14.0-18.0); Immature Granulocyte Absolute 0.06 K/mm3 (0.00-0.031); Immature Granulocyte Percent A 0.8 % (0-0.5); Lymphocytes Absolute Auto 1.57 K/mm3 (0.9-3.2); Lymphocytes Percent Auto 20.3 % (18.3-44.2); Mean Corpuscular HGB Conc 32.6 g/dl (32-36); Mean Corpuscular Hemoglobin 29.6 pg (26-34); Mean Platelet Volume 10.7 fl (7.4-10.4); Monocytes Percent Auto 12.5 % (2.6-8.5); Neutrophils Absolute Auto 5.1 K/mm3 (1.3-6.7); Neutrophils Percent Auto 65.8 % (45.5-73.1); Platelet Count Result 261 k/mm3 (150-375); Red Blood Count 3.88 M/mm3 (4.6-6.20); Red Cell Distribution Width 14.6 % (11.5-14.5); White Blood Count 7.7 K/mm3 (4.5-10.0)
[2021-09-13 04:59] LABS: Anion Gap 5 mmol/L (8-16); Blood Urea Nitrogen 17 mg/dL (9-20); Calcium 8.4 mg/dL (8.4-10.2); Carbon Dioxide 26 mmol/L (22-30); Chloride 102 mmol/L (98-107); Estimated CRCL calculation 67 ml/min; Estimated Glomerular Filt Rate > 60; Glucose 124 mg/dL (65-110); Magnesium 2.1 mg/dL (1.6-2.3); Potassium 3.5 mmol/L (3.4-5.0); Sodium 133 mmol/L (137-145)
[2021-09-13] MEDS: ASPIRIN 81 MG ENTERIC TABLET PO (09:20)
[2021-09-13] MEDS: FENOFIBRATE NANOCRYSTALLIZED 145 MG TABLET PO (09:22)
[2021-09-13] MEDS: amLODIPine BESYLATE 5 MG TABLET 10 MG PO (09:22)
[2021-09-13] MEDS: OSELTAMIVIR PHOSPHATE 75 MG CAPSULE PO ×2 (09:23→22:04)
[2021-09-13] MEDS: ATORVASTATIN 40 MG TABLET PO (09:23)
[2021-09-13] MEDS: TICAGRELOR 90 MG TABLET PO ×2 (09:23→20:49)
[2021-09-13] MEDS: METOPROLOL TARTRATE 12.5 MG TABLET PO ×2 (09:23→20:49)
[2021-09-13] MEDS: NICOTINE (*PBKC) 21 MG PATCH 1 PATCH TRANSDERM (09:23)
[2021-09-13] MEDS: HEPARIN SODIUM 5,000 UNITS/ML VIAL 5000 UNITS SUB-Q ×2 (09:23→20:49)
[2021-09-13] MEDS: FLUTICASONE PROPIONATE 0.05% NA SPR 16 GM BTL (*BKC) 2 SPRAY NASAL (09:24)
[2021-09-13] MEDS: polyethylene glycoL 3350 17 GM POWD.PACK PO (09:32)
--- NOTE | 2021-09-13 13:18 | P.PNIM_ITS ---
Progress Note: A&P Assessment and Plan (1) Acute respiratory failure: Code(s): J96.00 - Acute respiratory failure, unspecified whether with hypoxia or hypercapnia Status: Acute Assessment and Plan: Radha was on room air initially with ABG 7.46//57 but worsened * Was on HFNC and NRB mask * ABC 09/11 showing 7.48/30/67 on 15L * Weaned to HFNC at 15L * Related to Influenza A PNA and 2nd bacterial PNA * Wean O2 as tolerated * Encouraged IS and Flutter valve use * Contineu Albuterol and Atrovent nebs (2) Sepsis: Code(s): A41.9 - Sepsis, unspecified organism Status: Acute Assessment and Plan: Severe sepsis present on admission with fever, RONY, respiratory failure, tachycardia, tachypnea. * Symptoms have improved. Fever resolved. * RONY better * Still with respiratory failure (3) Pneumonia: Code(s): J18.9 - Pneumonia, unspecified organism Status: Acute Assessment and Plan: Patient presents with GI symptoms and cough with fever. * CXR was clear on admission but repeat CXR showing worsening opacities atelectasis versus pneumonia * COVID negtiave but Influenza A positive. * Patient likely has superimposed pneumonia on influenza * BCx 09/08 and 09/11 NGTD. Sputum Cx NGTD * Antibiotics: day 3 of vancomycin (09/11 at 1115) and Cefepime (09/11 1039) * Still excessive O2 requirement but better. * Continue to wean O2 as toerlated * Contineu IV abx (4) Influenza A: Code(s): J10.1 - Influenza due to other identified influenza virus with other respiratory manifestations Status: Acute Assessment and Plan: Patient presents with cough, fever and found to have Influenza A. * Started on Tamiflu * Extend to a 10 day course give his current severe illness * Wean o2 as toerlated (5) Cxxun-sn-wwjldhb kidney injury: Code(s): N17.9 - Acute kidney failure, unspecified; N18.9 - Chronic kidney disease, unspecified Status: Acute Assessment and Plan: Patient with CKD but unclear on baseline. * Renal US 01/2020 showing bilateral renal cortical atrophy, mild on the right and moderate on the left. * Cr 2.0 on admission * Cr better at 1.2. Suspect close to baseline. Resolved * Follow (6) Nausea vomiting and diarrhea: Code(s): R11.2 - Nausea with vomiting, unspecified; R19.7 - Diarrhea, unspecified Status: Acute Assessment and Plan: Patiet present with nausea, vomiting and diarrhea. * Likely secondary to viral illness * Symptoms have resolved * Check for legionella * Continue supportive care (7) Coronary artery disease: Code(s): I25.10 - Atherosclerotic heart disease of [place] coronary artery without angina pectoris Status: Acute Assessment and Plan: Hx of CAD * Stable * Continue Lipitor, Lopressor, ticagrelor (8) Tobacco dependence: Code(s): F17.200 - Nicotine dependence, unspecified, uncomplicated Status: Acute Assessment and Plan: He was educated about the benefits of smoking cessation. Nicotine patch is helpful (9) DVT prophylaxis: Code(s): Z29.9 - Encounter for prophylactic measures, unspecified Status: Acute Assessment and Plan: Heparin Subjective Date/time seen: 09/13/21 13:18 Interval history: 61yo male with CAD and ongoing tobacco use here for nausea, vomiting, diarrhea and cough. Assuming care. Chart reviewed. Did not have his influenza vaccine this year. Cough
--- NOTE | 2021-09-13 13:18 | PM.IMPN ---
Progress Note: A&P Assessment and Plan (1) Acute respiratory failure: Code(s): J96.00 - Acute respiratory failure, unspecified whether with hypoxia or hypercapnia Status: Acute Assessment and Plan: Radha was on room air initially with ABG 7.46//57 but worsened Was on HFNC and NRB mask ABC 09/11 showing 7.48// on 15L Weaned to HFNC at 15L Related to Influenza A PNA and 2nd bacterial PNA Wean O2 as tolerated Encouraged IS and Flutter valve use Contineu Albuterol and Atrovent nebs (2) Sepsis: Code(s): A41.9 - Sepsis, unspecified organism Status: Acute Assessment and Plan: Severe sepsis present on admission with fever, RONY, respiratory failure, tachycardia, tachypnea. Symptoms have improved. Fever resolved. RONY better Still with respiratory failure (3) Pneumonia: Code(s): J18.9 - Pneumonia, unspecified organism Status: Acute Assessment and Plan: Patient presents with GI symptoms and cough with fever. CXR was clear on admission but repeat CXR showing worsening opacities atelectasis versus pneumonia COVID negtiave but Influenza A positive. Patient likely has superimposed pneumonia on influenza BCx 09/08 and 09/11 NGTD. Sputum Cx NGTD Antibiotics: day 3 of vancomycin (09/11 at 1115) and Cefepime (09/11 1039) Still excessive O2 requirement but better. Continue to wean O2 as toerlated Contineu IV abx (4) Influenza A: Code(s): J10.1 - Influenza due to other identified influenza virus with other respiratory manifestations Status: Acute Assessment and Plan: Patient presents with cough, fever and found to have Influenza A. Started on Tamiflu Extend to a 10 day course give his current severe illness Wean o2 as toerlated (5) Loezg-fb-dfozmki kidney injury: Code(s): N17.9 - Acute kidney failure, unspecified; N18.9 - Chronic kidney disease, unspecified Status: Acute Assessment and Plan: Patient with CKD but unclear on baseline. Renal US 01/2020 showing bilateral renal cortical atrophy, mild on the right and moderate on the left. Cr 2.0 on admission Cr better at 1.2. Suspect close to baseline. Resolved Follow (6) Nausea vomiting and diarrhea: Code(s): R11.2 - Nausea with vomiting, unspecified; R19.7 - Diarrhea, unspecified Status: Acute Assessment and Plan: Patiet present with nausea, vomiting and diarrhea. Likely secondary to viral illness Symptoms have resolved Check for legionella Continue supportive care (7) Coronary artery disease: Code(s): I25.10 - Atherosclerotic heart disease of [place] coronary artery without angina pectoris Status: Acute Assessment and Plan: Hx of CAD Stable Continue Lipitor, Lopressor, ticagrelor (8) Tobacco dependence: Code(s): F17.200 - Nicotine dependence, unspecified, uncomplicated Status: Acute Assessment and Plan: He was educated about the benefits of smoking cessation. Nicotine patch is helpful (9) DVT prophylaxis: Code(s): Z29.9 - Encounter for prophylactic measures, unspecified Status: Acute Assessment and Plan: Heparin Subjective Date/time seen: 09/13/21 13:18 Interval history: 61yo male with CAD and ongoing tobacco use here for nausea, vomiting, diarrhea and cough. Assuming care. Chart reviewed. Did not have his influenza vaccine this year. Cough productive yellow sputum. He is no longer on the non-rebreather mask but still remains on the 15 L high-flow nasal cannula. No further nausea, vomiting or diarrhea. No further diarrhea since receiving the Imodium. No chest pain. No exposure to chix, birds or pigs Exam Narrative: AF 97.7 134/79 87 22 94% HFNC Gen - NARD sitting up in bed but mildy tachypneic if he talks too much Chest - coarse BS inspiratory and expiratory. CV - RRR S1/S2. Tele showing PVCs. Abd - Soft, NT/ND, Positive BS
--- NOTE | 2021-09-13 16:02 | PCRCNOTE ---
Pt was sating 97 on 15 LPM High Flow Nasal Cannula. Titrated pts O2 to 12 LPM with pt sating 94. Pt called nurse and requested to have O2 increased due to pt stating they were unable to catch their breath. Nurse increased O2 back to 15 lpm. Will try to titrate pts oxygen back down as pt tolerates.
[2021-09-13 19:45] LABS: Vancomycin Trough 9.2 ug/mL (10.0-20.0)
--- NOTE | 2021-09-13 20:28 | PHAR ---
VANCO TROUGH LEVEL = 9.2 DOSING SCHEDULE CHANGED TO Q12HR. WILL RECHECK LEVEL 09/15 1899. TARGET TROUGH = 10-15
[2021-09-14] VITALS (30 sets, daily range): BP systolic 134–155; BP diastolic 68–80; PULSE 66–87; RESP 18–26; TEMP 36.2–36.7; O2SAT 85–97
[2021-09-14] MEDS: ALBUTEROL SULFATE NEB 2.5 MG/0.5 ML INH INHALATION ×7 (00:30→19:55)
[2021-09-14] MEDS: IPRATROPIUM BR 0.02% INH SOLN 0.5 MG/2.5 ML VIAL INHALATION ×7 (00:30→19:55)
[2021-09-14] MEDS: guaiFENesin/DEXTROMETHORPHAN 10 ML UDC PO ×2 (01:15→09:52)
[2021-09-14 05:31] LABS: Hematocrit 34.8 % (42.0-52.0); Hemoglobin 11.6 g/dL (14.0-18.0); Mean Corpuscular HGB Conc 33.3 g/dl (32-36); Mean Corpuscular Hemoglobin 29.7 pg (26-34); Mean Corpuscular Volume 89.2 fl (80-100); Mean Platelet Volume 10.5 fl (7.4-10.4); Platelet Count Result 319 k/mm3 (150-375); Red Cell Distribution Width 14.4 % (11.5-14.5); White Blood Count 6.8 K/mm3 (4.5-10.0)
[2021-09-14 05:50] LABS: Anion Gap 6 mmol/L (8-16); Blood Urea Nitrogen 20 mg/dL (9-20); Calcium 8.8 mg/dL (8.4-10.2); Carbon Dioxide 25 mmol/L (22-30); Chloride 103 mmol/L (98-107); Estimated CRCL calculation 67 ml/min; Estimated Glomerular Filt Rate > 60; Glucose 111 mg/dL (65-110); Potassium 3.8 mmol/L (3.4-5.0); Sodium 134 mmol/L (137-145)
[2021-09-14] MEDS: amLODIPine BESYLATE 5 MG TABLET 10 MG PO (09:40)
[2021-09-14] MEDS: OSELTAMIVIR PHOSPHATE 75 MG CAPSULE PO ×2 (09:40→20:28)
[2021-09-14] MEDS: TICAGRELOR 90 MG TABLET PO ×2 (09:41→20:28)
[2021-09-14] MEDS: FENOFIBRATE NANOCRYSTALLIZED 145 MG TABLET PO (09:41)
[2021-09-14] MEDS: NICOTINE (*PBKC) 21 MG PATCH 1 PATCH TRANSDERM (09:41)
[2021-09-14] MEDS: METOPROLOL TARTRATE 12.5 MG TABLET PO ×2 (09:41→20:28)
[2021-09-14] MEDS: ASPIRIN 81 MG ENTERIC TABLET PO (09:41)
[2021-09-14] MEDS: ATORVASTATIN 40 MG TABLET PO (09:41)
[2021-09-14] MEDS: FLUTICASONE PROPIONATE 0.05% NA SPR 16 GM BTL (*BKC) 2 SPRAY NASAL (09:42)
--- NOTE | 2021-09-14 09:51 | P.PNIM_ITS ---
Progress Note: A&P Assessment and Plan (1) Acute respiratory failure: Code(s): J96.00 - Acute respiratory failure, unspecified whether with hypoxia or hypercapnia Status: Acute Assessment and Plan: Patient was on room air initially with ABG 7.46//57 but worsened. Now with Acute hypoxic resp failure. * Was on HFNC and NRB mask * ABG 09/11 showing 7.48/30/67 on 15L * Weaned to HFNC at 15L * Related to Influenza A PNA and 2nd bacterial PNA * Still excessive O2 requirement: some improvement but now worse. * Encouraged IS and Flutter valve use * Continue Albuterol and Atrovent nebs Q4hr; Repeat CXR; Consider Pulmonary consult. (2) Sepsis: Code(s): A41.9 - Sepsis, unspecified organism Status: Acute Assessment and Plan: Severe sepsis present on admission with fever, RONY, respiratory failure, tachycardia, tachypnea. * Symptoms have improved. Fever resolved. * RONY resolved * Still with respiratory failure (3) Pneumonia: Code(s): J18.9 - Pneumonia, unspecified organism Status: Acute Assessment and Plan: Patient presents with GI symptoms and cough with fever. * CXR was clear on admission but repeat CXR showing worsening opacities atelectasis versus pneumonia * WBC normal and remains normal * COVID negative but Influenza A positive. * Patient likely has superimposed bacterial pneumonia on influenza * BCx 09/08 negative, 09/11 NGTD. Sputum Cx negative * Antibiotics: day 4 of vancomycin (09/11 at 1115) and Cefepime (09/11 1039) * Still excessive O2 requirement: some improvement but now worse. * Continue to wean O2 as tolerated * Continue IV abx. Check CRP (4) Influenza A: Code(s): J10.1 - Influenza due to other identified influenza virus with other respiratory manifestations Status: Acute Assessment and Plan: Patient presents with cough, fever and found to have Influenza A. * Started on Tamiflu * Extend Tamiflu to a 10 day course give his current severe illness * Wean O2 as tolerated (5) Xroaz-ww-bsgrquz kidney injury: Code(s): N17.9 - Acute kidney failure, unspecified; N18.9 - Chronic kidney disease, unspecified Status: Acute Assessment and Plan: Patient with CKD but unclear on baseline. * Renal US 01/2020 showing bilateral renal cortical atrophy, mild on the right and moderate on the left. * Cr 2.0 on admission * Cr better at 1.2 and stable. Suspect close to baseline. Resolved * Follow (6) Nausea vomiting and diarrhea: Code(s): R11.2 - Nausea with vomiting, unspecified; R19.7 - Diarrhea, unspecified Status: Acute Assessment and Plan: Patiet present with nausea, vomiting and diarrhea. * Likely secondary to viral illness * Symptoms have resolved * Checking for legionella * Continue supportive care (7) Coronary artery disease: Code(s): I25.10 - Atherosclerotic heart disease of [place] coronary artery without angina pectoris Status: Acute Assessment and Plan: Hx of CAD * Stable * Continue Lipitor, Lopressor, ticagrelor (8) Tobacco dependence: Code(s): F17.200 - Nicotine dependence, unspecified, uncomplicated Status: Acute Assessment and Plan: He was educated about the benefits of smoking cessation. Nicotine patch is helpful (9) DVT prophylaxis: Code(s): Z29.9 - Encounter for prophylactic measures, unspecified Status: Acute Assessment and Plan: Lovenox Subjective Date
--- NOTE | 2021-09-14 09:51 | PM.IMPN ---
Progress Note: A&P Assessment and Plan (1) Acute respiratory failure: Code(s): J96.00 - Acute respiratory failure, unspecified whether with hypoxia or hypercapnia Status: Acute Assessment and Plan: Patient was on room air initially with ABG 7.46/28/57 but worsened. Now with Acute hypoxic resp failure. Was on HFNC and NRB mask ABG 09/11 showing 7.48/30/67 on 15L Weaned to HFNC at 15L Related to Influenza A PNA and 2nd bacterial PNA Still excessive O2 requirement: some improvement but now worse. Encouraged IS and Flutter valve use Continue Albuterol and Atrovent nebs Q4hr; Repeat CXR; Consider Pulmonary consult. (2) Sepsis: Code(s): A41.9 - Sepsis, unspecified organism Status: Acute Assessment and Plan: Severe sepsis present on admission with fever, RONY, respiratory failure, tachycardia, tachypnea. Symptoms have improved. Fever resolved. RONY resolved Still with respiratory failure (3) Pneumonia: Code(s): J18.9 - Pneumonia, unspecified organism Status: Acute Assessment and Plan: Patient presents with GI symptoms and cough with fever. CXR was clear on admission but repeat CXR showing worsening opacities atelectasis versus pneumonia WBC normal and remains normal COVID negative but Influenza A positive. Patient likely has superimposed bacterial pneumonia on influenza BCx 09/08 negative, 09/11 NGTD. Sputum Cx negative Antibiotics: day 4 of vancomycin (09/11 at 1115) and Cefepime (09/11 1039) Still excessive O2 requirement: some improvement but now worse. Continue to wean O2 as tolerated Continue IV abx. Check CRP (4) Influenza A: Code(s): J10.1 - Influenza due to other identified influenza virus with other respiratory manifestations Status: Acute Assessment and Plan: Patient presents with cough, fever and found to have Influenza A. Started on Tamiflu Extend Tamiflu to a 10 day course give his current severe illness Wean O2 as tolerated (5) Bhacg-fl-ndnxupf kidney injury: Code(s): N17.9 - Acute kidney failure, unspecified; N18.9 - Chronic kidney disease, unspecified Status: Acute Assessment and Plan: Patient with CKD but unclear on baseline. Renal US 01/2020 showing bilateral renal cortical atrophy, mild on the right and moderate on the left. Cr 2.0 on admission Cr better at 1.2 and stable. Suspect close to baseline. Resolved Follow (6) Nausea vomiting and diarrhea: Code(s): R11.2 - Nausea with vomiting, unspecified; R19.7 - Diarrhea, unspecified Status: Acute Assessment and Plan: Patiet present with nausea, vomiting and diarrhea. Likely secondary to viral illness Symptoms have resolved Checking for legionella Continue supportive care (7) Coronary artery disease: Code(s): I25.10 - Atherosclerotic heart disease of [place] coronary artery without angina pectoris Status: Acute Assessment and Plan: Hx of CAD Stable Continue Lipitor, Lopressor, ticagrelor (8) Tobacco dependence: Code(s): F17.200 - Nicotine dependence, unspecified, uncomplicated Status: Acute Assessment and Plan: He was educated about the benefits of smoking cessation. Nicotine patch is helpful (9) DVT prophylaxis: Code(s): Z29.9 - Encounter for prophylactic measures, unspecified Status: Acute Assessment and Plan: Lovenox Subjective Date/time seen: 09/14/21 09:51 Interval history: 61yo male with CAD and ongoing tobacco use here for nausea, vomiting, diarrhea and cough. Patient was weaned to about 10 L overnight but this morning is back up to 15 L high-flow nasal cannula. Feels short of breath. He states his cough is unchanged but actually has not coughed much this morning at all. Cough is still productive yellow sputum. No nausea, vomiting or diarrhea. He had a normal bowel movement yesterday. No chest pain. Exam
[2021-09-14] MEDS: ENOXAPARIN 40 MG/0.4 ML SYRINGE SUB-Q (13:29)
[2021-09-14] MEDS: FUROSEMIDE INJ 40 MG/4 ML VIAL IV PUSH (17:34)
[2021-09-15] VITALS (29 sets, daily range): BP systolic 124–151; BP diastolic 56–80; PULSE 58–88; RESP 18–24; TEMP 36.3–36.7; O2SAT 91–97
[2021-09-15] MEDS: IPRATROPIUM BR 0.02% INH SOLN 0.5 MG/2.5 ML VIAL INHALATION ×6 (00:20→21:19)
[2021-09-15] MEDS: ALBUTEROL SULFATE NEB 2.5 MG/0.5 ML INH INHALATION ×6 (00:20→21:19)
[2021-09-15] MEDS: guaiFENesin/DEXTROMETHORPHAN 10 ML UDC PO ×3 (03:48→20:33)
[2021-09-15 05:35] LABS: Alanine Aminotransferase 30 U/L (4-50); Albumin Level 3.8 g/dL (3.5-5.1); Alkaline Phosphatase 61 U/L (38-126); Anion Gap 6 mmol/L (8-16); Aspartate Amino Transferase 54 U/L (17-59); Bilirubin,Total 0.6 mg/dL (0.2-1.3); Blood Urea Nitrogen 21 mg/dL (9-20); CRP 4.6 mg/dL (<1.0); Calcium 8.8 mg/dL (8.4-10.2); Carbon Dioxide 30 mmol/L (22-30); Chloride 100 mmol/L (98-107); Estimated CRCL calculation 62 ml/min; Estimated Glomerular Filt Rate 56; Glucose 120 mg/dL (65-110); Potassium 3.5 mmol/L (3.4-5.0); Sodium 136 mmol/L (137-145)
[2021-09-15 05:41] LABS: NT Pro B Type Natriuretic Pept 474 pg/mL (5-100)
[2021-09-15] MEDS: HYDROcodone/acetaminophen (*CRX) 5-325 MG TABLET 1 TAB PO ×3 (09:36→21:13)
[2021-09-15] MEDS: ATORVASTATIN 40 MG TABLET PO (09:39)
[2021-09-15] MEDS: ENOXAPARIN 40 MG/0.4 ML SYRINGE SUB-Q (09:39)
[2021-09-15] MEDS: TICAGRELOR 90 MG TABLET PO ×2 (09:39→20:33)
[2021-09-15] MEDS: amLODIPine BESYLATE 5 MG TABLET 10 MG PO (09:39)
[2021-09-15] MEDS: OSELTAMIVIR PHOSPHATE 75 MG CAPSULE PO ×2 (09:39→20:33)
[2021-09-15] MEDS: NICOTINE (*PBKC) 21 MG PATCH 1 PATCH TRANSDERM (09:39)
[2021-09-15] MEDS: FLUTICASONE PROPIONATE 0.05% NA SPR 16 GM BTL (*BKC) 2 SPRAY NASAL (09:40)
[2021-09-15] MEDS: ASPIRIN 81 MG ENTERIC TABLET PO (09:40)
[2021-09-15] MEDS: METOPROLOL TARTRATE 12.5 MG TABLET PO ×2 (09:40→20:33)
[2021-09-15] MEDS: FUROSEMIDE INJ 40 MG/4 ML VIAL IV PUSH ×2 (09:40→17:52)
[2021-09-15] MEDS: FENOFIBRATE NANOCRYSTALLIZED 145 MG TABLET PO (09:40)
--- NOTE | 2021-09-15 13:53 | P.PNIM_ITS ---
Progress Note: A&P Assessment and Plan (1) Acute respiratory failure: Code(s): J96.00 - Acute respiratory failure, unspecified whether with hypoxia or hypercapnia Status: Acute Assessment and Plan: Patient was on room air initially with ABG 7.46/28/57 but worsened. Now with Acute hypoxic resp failure. * ABG 09/11 showing 7.48/30/67 on 15L * Was on HFNC and NRB mask but weaned to HFNC only * Related to Influenza A PNA and 2nd bacterial PNA * Still excessive O2 requirement but improved to 7L * CXR 09/14 showing persistent but improved opacities of the lungs. Lasix IV started. * Encouraged IS and Flutter valve use * Encouraged him to be out of bed. * Continue Albuterol and Atrovent nebs Q4hr (2) Sepsis: Code(s): A41.9 - Sepsis, unspecified organism Status: Acute Assessment and Plan: Severe sepsis present on admission with fever, RONY, respiratory failure, tachycardia, tachypnea. * Symptoms have improved. Fever resolved. * RONY resolved * Still with respiratory failure but better today (3) Pneumonia: Code(s): J18.9 - Pneumonia, unspecified organism Status: Acute Assessment and Plan: Patient presents with GI symptoms and cough with fever. * CXR was clear on admission but repeat CXR showing worsening opacities atelectasis versus pneumonia * WBC normal and remains normal * COVID negative but Influenza A positive. * Patient likely has superimposed bacterial pneumonia on influenza A * BCx 09/08 negative, 09/11 NGTD. Sputum Cx negative * Antibiotics: day 5 of vancomycin (09/11 at 1115) and Cefepime (09/11 1039) * O2 requirement improved * Continue to wean O2 as tolerated * Continue IV abx. (4) Influenza A: Code(s): J10.1 - Influenza due to other identified influenza virus with other respiratory manifestations Status: Acute Assessment and Plan: Patient presents with cough, fever and found to have Influenza A. * Started on Tamiflu * Extending Tamiflu to a 10 day course give his current severe illness * Wean O2 as tolerated (5) Cczje-mk-xvtbvao kidney injury: Code(s): N17.9 - Acute kidney failure, unspecified; N18.9 - Chronic kidney disease, unspecified Status: Acute Assessment and Plan: Patient with CKD but unclear on baseline. * Renal US 01/2020 showing bilateral renal cortical atrophy, mild on the right and moderate on the left. * Cr 2.0 on admission * Cr better at 1.3 and stable. Suspect close to baseline. Resolved * Follow on Lasix. (6) Nausea vomiting and diarrhea: Code(s): R11.2 - Nausea with vomiting, unspecified; R19.7 - Diarrhea, unspecified Status: Acute Assessment and Plan: Patiet present with nausea, vomiting and diarrhea. * Likely secondary to viral illness * Symptoms have resolved * Checking for legionella * Continue supportive care (7) Coronary artery disease: Code(s): I25.10 - Atherosclerotic heart disease of [place] coronary artery without angina pectoris Status: Acute Assessment and Plan: Hx of CAD * Stable * Continue Lipitor, Lopressor, ticagrelor (8) Tobacco dependence: Code(s): F17.200 - Nicotine dependence, unspecified, uncomplicated Status: Acute Assessment and Plan: He was educated about the benefits of smoking cessation. Nicotine patch is helpful (9) DVT prophylaxis: Code(s): Z29.9 - Encounter for prophylactic measures, unspecified Status: Acute Assessment and Plan:
--- NOTE | 2021-09-15 13:53 | PM.IMPN ---
Progress Note: A&P Assessment and Plan (1) Acute respiratory failure: Code(s): J96.00 - Acute respiratory failure, unspecified whether with hypoxia or hypercapnia Status: Acute Assessment and Plan: Patient was on room air initially with ABG 7.46/28/57 but worsened. Now with Acute hypoxic resp failure. ABG 09/11 showing 7.48/30/67 on 15L Was on HFNC and NRB mask but weaned to HFNC only Related to Influenza A PNA and 2nd bacterial PNA Still excessive O2 requirement but improved to 7L CXR 09/14 showing persistent but improved opacities of the lungs. Lasix IV started. Encouraged IS and Flutter valve use Encouraged him to be out of bed. Continue Albuterol and Atrovent nebs Q4hr (2) Sepsis: Code(s): A41.9 - Sepsis, unspecified organism Status: Acute Assessment and Plan: Severe sepsis present on admission with fever, RONY, respiratory failure, tachycardia, tachypnea. Symptoms have improved. Fever resolved. RONY resolved Still with respiratory failure but better today (3) Pneumonia: Code(s): J18.9 - Pneumonia, unspecified organism Status: Acute Assessment and Plan: Patient presents with GI symptoms and cough with fever. CXR was clear on admission but repeat CXR showing worsening opacities atelectasis versus pneumonia WBC normal and remains normal COVID negative but Influenza A positive. Patient likely has superimposed bacterial pneumonia on influenza A BCx 09/08 negative, 09/11 NGTD. Sputum Cx negative Antibiotics: day 5 of vancomycin (09/11 at 1115) and Cefepime (09/11 1039) O2 requirement improved Continue to wean O2 as tolerated Continue IV abx. (4) Influenza A: Code(s): J10.1 - Influenza due to other identified influenza virus with other respiratory manifestations Status: Acute Assessment and Plan: Patient presents with cough, fever and found to have Influenza A. Started on Tamiflu Extending Tamiflu to a 10 day course give his current severe illness Wean O2 as tolerated (5) Yzjpx-yr-ssagwzh kidney injury: Code(s): N17.9 - Acute kidney failure, unspecified; N18.9 - Chronic kidney disease, unspecified Status: Acute Assessment and Plan: Patient with CKD but unclear on baseline. Renal US 01/2020 showing bilateral renal cortical atrophy, mild on the right and moderate on the left. Cr 2.0 on admission Cr better at 1.3 and stable. Suspect close to baseline. Resolved Follow on Lasix. (6) Nausea vomiting and diarrhea: Code(s): R11.2 - Nausea with vomiting, unspecified; R19.7 - Diarrhea, unspecified Status: Acute Assessment and Plan: Patiet present with nausea, vomiting and diarrhea. Likely secondary to viral illness Symptoms have resolved Checking for legionella Continue supportive care (7) Coronary artery disease: Code(s): I25.10 - Atherosclerotic heart disease of [place] coronary artery without angina pectoris Status: Acute Assessment and Plan: Hx of CAD Stable Continue Lipitor, Lopressor, ticagrelor (8) Tobacco dependence: Code(s): F17.200 - Nicotine dependence, unspecified, uncomplicated Status: Acute Assessment and Plan: He was educated about the benefits of smoking cessation. Nicotine patch is helpful (9) DVT prophylaxis: Code(s): Z29.9 - Encounter for prophylactic measures, unspecified Status: Acute Assessment and Plan: Lovenox Subjective Date/time seen: 09/15/21 13:54 Interval history: 61yo male with CAD and ongoing tobacco use here for nausea, vomiting, diarrhea and cough. Up all night coughing. Cough was productive of white sputum but no dry. No CP. Feels tired, Not out of bed much. Exam Narrative: AF 97.9 137/75 66 20 95% 7L HFNC Gen - NARD sitting up in bed Chest - distatn BS but clearer overall. CV - RRR S1/S2. Tele showing PVCs. Abd - Soft, NT/ND, Positive BS Ext
[2021-09-15 19:27] LABS: Vancomycin Trough 19.1 ug/mL (10.0-20.0)
[2021-09-16] VITALS (25 sets, daily range): BP systolic 113–134; BP diastolic 65–90; PULSE 61–98; RESP 18–24; TEMP 36–36.7; O2SAT 93–99
[2021-09-16] MEDS: IPRATROPIUM BR 0.02% INH SOLN 0.5 MG/2.5 ML VIAL INHALATION ×7 (00:25→23:57)
[2021-09-16] MEDS: ALBUTEROL SULFATE NEB 2.5 MG/0.5 ML INH INHALATION ×7 (00:25→23:57)
[2021-09-16 05:52] LABS: Anion Gap 5 mmol/L (8-16); Blood Urea Nitrogen 24 mg/dL (9-20); Calcium 8.6 mg/dL (8.4-10.2); Carbon Dioxide 33 mmol/L (22-30); Chloride 97 mmol/L (98-107); Estimated CRCL calculation 51 ml/min; Estimated Glomerular Filt Rate 44; Glucose 139 mg/dL (65-110); Potassium 3.5 mmol/L (3.4-5.0); Sodium 135 mmol/L (137-145)
[2021-09-16 05:54] LABS: Estimated CRCL calculation 54 ml/min; Estimated Glomerular Filt Rate 48
[2021-09-16] MEDS: ATORVASTATIN 40 MG TABLET PO (08:54)
[2021-09-16] MEDS: FUROSEMIDE INJ 40 MG/4 ML VIAL IV PUSH (08:56)
[2021-09-16] MEDS: ENOXAPARIN 40 MG/0.4 ML SYRINGE SUB-Q (08:59)
[2021-09-16] MEDS: METOPROLOL TARTRATE 12.5 MG TABLET PO ×2 (09:01→20:45)
[2021-09-16] MEDS: OSELTAMIVIR PHOSPHATE 75 MG CAPSULE PO ×2 (09:01→20:44)
[2021-09-16] MEDS: NICOTINE (*PBKC) 21 MG PATCH 1 PATCH TRANSDERM (09:01)
[2021-09-16] MEDS: amLODIPine BESYLATE 5 MG TABLET 10 MG PO (09:02)
[2021-09-16] MEDS: TICAGRELOR 90 MG TABLET PO ×2 (09:02→20:44)
[2021-09-16] MEDS: FENOFIBRATE NANOCRYSTALLIZED 145 MG TABLET PO (09:03)
[2021-09-16] MEDS: ASPIRIN 81 MG ENTERIC TABLET PO (09:03)
[2021-09-16] MEDS: HYDROcodone/acetaminophen (*CRX) 5-325 MG TABLET 1 TAB PO ×2 (09:04→20:43)
[2021-09-16] MEDS: FLUTICASONE PROPIONATE 0.05% NA SPR 16 GM BTL (*BKC) 2 SPRAY NASAL (09:04)
--- NOTE | 2021-09-16 11:44 | PCNWS ---
Weekly nutritional screen. Patient is tolerating current diet with adequate intake. No nutritional needs at this time.
--- NOTE | 2021-09-16 14:11 | P.PNIM_ITS ---
Progress Note: A&P Assessment and Plan (1) Acute respiratory failure: Code(s): J96.00 - Acute respiratory failure, unspecified whether with hypoxia or hypercapnia Status: Acute Assessment and Plan: Patient was on room air initially with ABG 7.46//57 but worsened. Now with Acute hypoxic resp failure. * ABG 09/11 showing 7.48/30/67 on 15L * Was on HFNC and NRB mask but weaned to HFNC only * Related to Influenza A PNA and 2nd bacterial PNA * Still excessive O2 requirement but improved to 5L * CXR 09/14 showing persistent but improved opacities of the lungs. Lasix IV started. * Encouraged IS and Flutter valve use * Encouraged him to be out of bed. * Continue Albuterol and Atrovent nebs Q4hr * Lung exam is improved. Creatinine 1.6. Will stop Lasix. (2) Sepsis: Code(s): A41.9 - Sepsis, unspecified organism Status: Acute Assessment and Plan: Severe sepsis present on admission with fever, RONY, respiratory failure, tachycardia, tachypnea. * Symptoms have improved. Fever resolved. * RONY did resolve * Still with respiratory failure but improving (3) Pneumonia: Code(s): J18.9 - Pneumonia, unspecified organism Status: Acute Assessment and Plan: Patient presents with GI symptoms and cough with fever. * CXR was clear on admission but repeat CXR showing worsening opacities atelec tasis versus pneumonia * WBC normal * COVID negative but Influenza A positive. * Patient likely has superimposed bacterial pneumonia on influenza A * BCx 09/08 negative, 09/11 NGTD. Sputum Cx negative * Antibiotics: day 6 of vancomycin (09/11 at 1115) and Cefepime (09/11 1039) * O2 requirement improving * Continue to wean O2 as tolerated * Continue IV abx. (4) Influenza A: Code(s): J10.1 - Influenza due to other identified influenza virus with other respiratory manifestations Status: Acute Assessment and Plan: Patient presents with cough, fever and found to have Influenza A. * Started on Tamiflu * Extending Tamiflu to a 10 day course give his current severe illness * Wean O2 as tolerated (5) Ptugg-px-ofbfdhp kidney injury: Code(s): N17.9 - Acute kidney failure, unspecified; N18.9 - Chronic kidney disease, unspecified Status: Acute Assessment and Plan: Patient with CKD but unclear on baseline. * Renal US 01/2020 showing bilateral renal cortical atrophy, mild on the right and moderate on the left. * Cr 2.0 on admission * Cr improved. Resolved * Cr back up to 1.6 related to Lasix (baseline? now that he is close to dry weight) * Stop lasix. Follow (6) Nausea vomiting and diarrhea: Code(s): R11.2 - Nausea with vomiting, unspecified; R19.7 - Diarrhea, unspecified Status: Acute Assessment and Plan: Patiet present with nausea, vomiting and diarrhea. * Likely secondary to viral illness * Symptoms have resolved * Checking for legionella * Continue supportive care (7) Coronary artery disease: Code(s): I25.10 - Atherosclerotic heart disease of [place] coronary artery without angina pectoris Status: Acute Assessment and Plan: Hx of CAD * Stable * Continue Lipitor, Lopressor, ticagrelor (8) Tobacco dependence: Code(s): F17.200 - Nicotine dependence, unspecified, uncomplicated Status: Acute Assessment and Plan: He was educated about the benefits of smoking cessation. Nicotine patch is helpful (9) DVT prophylaxis: Code(s): Z29.9 - Encounter
--- NOTE | 2021-09-16 14:11 | PM.IMPN ---
Progress Note: A&P Assessment and Plan (1) Acute respiratory failure: Code(s): J96.00 - Acute respiratory failure, unspecified whether with hypoxia or hypercapnia Status: Acute Assessment and Plan: Patient was on room air initially with ABG 7.46// but worsened. Now with Acute hypoxic resp failure. ABG 09/11 showing 7.48/30/67 on 15L Was on HFNC and NRB mask but weaned to HFNC only Related to Influenza A PNA and 2nd bacterial PNA Still excessive O2 requirement but improved to 5L CXR 09/14 showing persistent but improved opacities of the lungs. Lasix IV started. Encouraged IS and Flutter valve use Encouraged him to be out of bed. Continue Albuterol and Atrovent nebs Q4hr Lung exam is improved. Creatinine 1.6. Will stop Lasix. (2) Sepsis: Code(s): A41.9 - Sepsis, unspecified organism Status: Acute Assessment and Plan: Severe sepsis present on admission with fever, RONY, respiratory failure, tachycardia, tachypnea. Symptoms have improved. Fever resolved. RONY did resolve Still with respiratory failure but improving (3) Pneumonia: Code(s): J18.9 - Pneumonia, unspecified organism Status: Acute Assessment and Plan: Patient presents with GI symptoms and cough with fever. CXR was clear on admission but repeat CXR showing worsening opacities atelectasis versus pneumonia WBC normal COVID negative but Influenza A positive. Patient likely has superimposed bacterial pneumonia on influenza A BCx 09/08 negative, 09/11 NGTD. Sputum Cx negative Antibiotics: day 6 of vancomycin (09/11 at 1115) and Cefepime (09/11 1039) O2 requirement improving Continue to wean O2 as tolerated Continue IV abx. (4) Influenza A: Code(s): J10.1 - Influenza due to other identified influenza virus with other respiratory manifestations Status: Acute Assessment and Plan: Patient presents with cough, fever and found to have Influenza A. Started on Tamiflu Extending Tamiflu to a 10 day course give his current severe illness Wean O2 as tolerated (5) Hewnc-xr-thxgxxm kidney injury: Code(s): N17.9 - Acute kidney failure, unspecified; N18.9 - Chronic kidney disease, unspecified Status: Acute Assessment and Plan: Patient with CKD but unclear on baseline. Renal US 01/2020 showing bilateral renal cortical atrophy, mild on the right and moderate on the left. Cr 2.0 on admission Cr improved. Resolved Cr back up to 1.6 related to Lasix (baseline? now that he is close to dry weight) Stop lasix. Follow (6) Nausea vomiting and diarrhea: Code(s): R11.2 - Nausea with vomiting, unspecified; R19.7 - Diarrhea, unspecified Status: Acute Assessment and Plan: Patiet present with nausea, vomiting and diarrhea. Likely secondary to viral illness Symptoms have resolved Checking for legionella Continue supportive care (7) Coronary artery disease: Code(s): I25.10 - Atherosclerotic heart disease of [place] coronary artery without angina pectoris Status: Acute Assessment and Plan: Hx of CAD Stable Continue Lipitor, Lopressor, ticagrelor (8) Tobacco dependence: Code(s): F17.200 - Nicotine dependence, unspecified, uncomplicated Status: Acute Assessment and Plan: He was educated about the benefits of smoking cessation. Nicotine patch is helpful (9) DVT prophylaxis: Code(s): Z29.9 - Encounter for prophylactic measures, unspecified Status: Acute Assessment and Plan: Lovenox Subjective Date/time seen: 09/16/21 14:11 Interval history: 61yo male with CAD and ongoing tobacco use here for nausea, vomiting, diarrhea and cough. Feels better today. Cough was mild last night. No coughing today. No chest pain. Good urine output. Exam Narrative: AF 96.8 132/76 68 20 96% 5L HFNC Gen - NARD sitting up in bed Chest - Few basilar rhonchi but overal
[2021-09-17] VITALS (30 sets, daily range): BP systolic 136–159; BP diastolic 58–69; PULSE 66–96; RESP 16–22; TEMP 36–36.7; O2SAT 90–99
[2021-09-17] MEDS: guaiFENesin/DEXTROMETHORPHAN 10 ML UDC PO ×2 (03:30→20:42)
[2021-09-17] MEDS: IPRATROPIUM BR 0.02% INH SOLN 0.5 MG/2.5 ML VIAL INHALATION ×4 (04:15→19:55)
[2021-09-17] MEDS: ALBUTEROL SULFATE NEB 2.5 MG/0.5 ML INH INHALATION ×4 (04:15→19:55)
[2021-09-17] MEDS: HYDROcodone/acetaminophen (*CRX) 5-325 MG TABLET 1 TAB PO ×3 (04:50→20:44)
[2021-09-17 05:00] LABS: Hematocrit 36.6 % (42.0-52.0); Hemoglobin 11.5 g/dL (14.0-18.0); Mean Corpuscular HGB Conc 31.4 g/dl (32-36); Mean Corpuscular Hemoglobin 29.3 pg (26-34); Mean Corpuscular Volume 93.1 fl (80-100); Mean Platelet Volume 10.1 fl (7.4-10.4); Platelet Count Result 438 k/mm3 (150-375); Red Blood Count 3.93 M/mm3 (4.6-6.20); Red Cell Distribution Width 14.3 % (11.5-14.5); White Blood Count 6.8 K/mm3 (4.5-10.0)
[2021-09-17 05:17] LABS: Alanine Aminotransferase 30 U/L (4-50); Albumin Level 3.8 g/dL (3.5-5.1); Alkaline Phosphatase 71 U/L (38-126); Anion Gap 5 mmol/L (8-16); Aspartate Amino Transferase 47 U/L (17-59); Bilirubin,Total 0.5 mg/dL (0.2-1.3); Blood Urea Nitrogen 26 mg/dL (9-20); Calcium 8.8 mg/dL (8.4-10.2); Carbon Dioxide 34 mmol/L (22-30); Chloride 96 mmol/L (98-107); Estimated CRCL calculation 54 ml/min; Estimated Glomerular Filt Rate 48; Glucose 104 mg/dL (65-110); Magnesium 2.1 mg/dL (1.6-2.3); Phosphorus 3.1 mg/dL (2.5-4.5); Potassium 3.8 mmol/L (3.4-5.0); Sodium 135 mmol/L (137-145)
[2021-09-17 05:37] LABS: Anisocytosis 1+ (NORMAL); Atypical Lymphocytes Present; Band Neutrophils Percent 8 % (0-6); Eosinophils Percent Manual 3 % (0-4); Giant Platelets Present; Large Platelets Present; Lymphocytes Absolute Manual 1.63 K/mm3 (1.1-4.5); Metamyelocytes Percent 8 %; Monocytes Absolute Manual 0.27 K/mm3 (0.1-0.90); Monocytes Percent Manual 4 % (3-9); Myelocytes Percent 3 %; Neutrophils Absolute Manual 3.94 K/mm3 (1.3-6.7); Neutrophils Percent Manual 50 % (46-73); Platelet Estimate Increased (Adequate); Total Cells Counted 100
--- NOTE | 2021-09-17 07:26 | PCRCNOTE ---
Pt stating that he is bringing up a small amount of secretions finally due to the pneumatic vest treatment Q4.
[2021-09-17] MEDS: TICAGRELOR 90 MG TABLET PO ×2 (08:23→20:44)
[2021-09-17] MEDS: METOPROLOL TARTRATE 12.5 MG TABLET PO ×2 (08:23→20:44)
[2021-09-17] MEDS: OSELTAMIVIR PHOSPHATE 75 MG CAPSULE PO ×2 (08:23→20:44)
[2021-09-17] MEDS: ENOXAPARIN 40 MG/0.4 ML SYRINGE SUB-Q (08:23)
[2021-09-17] MEDS: amLODIPine BESYLATE 5 MG TABLET 10 MG PO (08:23)
[2021-09-17] MEDS: FENOFIBRATE NANOCRYSTALLIZED 145 MG TABLET PO (08:23)
[2021-09-17] MEDS: ASPIRIN 81 MG ENTERIC TABLET PO (08:24)
[2021-09-17] MEDS: ATORVASTATIN 40 MG TABLET PO (08:24)
[2021-09-17] MEDS: FLUTICASONE PROPIONATE 0.05% NA SPR 16 GM BTL (*BKC) 2 SPRAY NASAL (08:24)
[2021-09-17] MEDS: NICOTINE (*PBKC) 21 MG PATCH 1 PATCH TRANSDERM (08:24)
[2021-09-17 15:22] LABS: Vancomycin Trough 12.7 ug/mL (10.0-20.0)
--- NOTE | 2021-09-17 15:23 | P.PNIM_ITS ---
Progress Note: A&P Assessment and Plan (1) Acute respiratory failure: Code(s): J96.00 - Acute respiratory failure, unspecified whether with hypoxia or hypercapnia Status: Acute Assessment and Plan: Patient was on room air initially with ABG 7.46/28/57 but worsened. Now with Acute hypoxic resp failure. * ABG 09/11 showing 7.48/30/67 on 15L * Was on HFNC and NRB mask but weaned to HFNC only * Related to Influenza A PNA and 2nd bacterial PNA * O2 requirement improved to 2L * CXR 09/14 showing persistent but improved opacities of the lungs. * Encouraged IS and Flutter valve use * Encouraged him to be out of bed. * Continue Albuterol and Atrovent nebs Q4hr but change to Q6h * Lung exam is improved. Home O2 evaluation with possible discharge tomorrow. (2) Sepsis: Code(s): A41.9 - Sepsis, unspecified organism Status: Acute Assessment and Plan: Severe sepsis present on admission with fever, RONY, respiratory failure, tachycardia, tachypnea. * Symptoms have improved. Fever resolved. * RONY did resolve * Still with respiratory failure but improving (3) Pneumonia: Code(s): J18.9 - Pneumonia, unspecified organism Status: Acute Assessment and Plan: Patient presents with GI symptoms and cough with fever. * CXR was clear on admission but repeat CXR showing worsening opacities atelect asis versus pneumonia * WBC normal * COVID negative but Influenza A positive. * Patient likely has superimposed bacterial pneumonia on influenza A * BCx 09/08 and 09/11 negative. Sputum Cx negative * Antibiotics: day 7 of vancomycin (09/11 at 1115) and Cefepime (09/11 1039) * O2 requirement improving * Continue to wean O2 as tolerated * Continue IV abx. (4) Influenza A: Code(s): J10.1 - Influenza due to other identified influenza virus with other respiratory manifestations Status: Acute Assessment and Plan: Patient presents with cough, fever and found to have Influenza A. * Started on Tamiflu * Extending Tamiflu to a 10 day course give his current severe illness * Wean O2 as tolerated (5) Iqpno-tu-skyrczb kidney injury: Code(s): N17.9 - Acute kidney failure, unspecified; N18.9 - Chronic kidney disease, unspecified Status: Acute Assessment and Plan: Patient with CKD but unclear on baseline. * Renal US 01/2020 showing bilateral renal cortical atrophy, mild on the right and moderate on the left. * Cr 2.0 on admission * Cr improved but Cr back up to 1.6 related to Lasix * Lasix stopped and Cr better at 1.5. Follow (6) Nausea vomiting and diarrhea: Code(s): R11.2 - Nausea with vomiting, unspecified; R19.7 - Diarrhea, unspecified Status: Acute Assessment and Plan: Patiet present with nausea, vomiting and diarrhea. * Likely secondary to viral illness * Symptoms have resolved * Checking for legionella * Continue supportive care (7) Coronary artery disease: Code(s): I25.10 - Atherosclerotic heart disease of [place] coronary artery without angina pectoris Status: Acute Assessment and Plan: Hx of CAD * Stable * Continue Lipitor, Lopressor, ticagrelor (8) Tobacco dependence: Code(s): F17.200 - Nicotine dependence, unspecified, uncomplicated Status: Acute Assessment and Plan: He was educated about the benefits of smoking cessation. Nicotine patch is helpful (9) DVT prophylaxis: Code(s): Z29.9 - Encounter for prophylactic measures, unspecified
--- NOTE | 2021-09-17 15:23 | PM.IMPN ---
Progress Note: A&P Assessment and Plan (1) Acute respiratory failure: Code(s): J96.00 - Acute respiratory failure, unspecified whether with hypoxia or hypercapnia Status: Acute Assessment and Plan: Patient was on room air initially with ABG 7.46/28/57 but worsened. Now with Acute hypoxic resp failure. ABG 09/11 showing 7.48/30/67 on 15L Was on HFNC and NRB mask but weaned to HFNC only Related to Influenza A PNA and 2nd bacterial PNA O2 requirement improved to 2L CXR 09/14 showing persistent but improved opacities of the lungs. Encouraged IS and Flutter valve use Encouraged him to be out of bed. Continue Albuterol and Atrovent nebs Q4hr but change to Q6h Lung exam is improved. Home O2 evaluation with possible discharge tomorrow. (2) Sepsis: Code(s): A41.9 - Sepsis, unspecified organism Status: Acute Assessment and Plan: Severe sepsis present on admission with fever, RONY, respiratory failure, tachycardia, tachypnea. Symptoms have improved. Fever resolved. RONY did resolve Still with respiratory failure but improving (3) Pneumonia: Code(s): J18.9 - Pneumonia, unspecified organism Status: Acute Assessment and Plan: Patient presents with GI symptoms and cough with fever. CXR was clear on admission but repeat CXR showing worsening opacities atelectasis versus pneumonia WBC normal COVID negative but Influenza A positive. Patient likely has superimposed bacterial pneumonia on influenza A BCx 09/08 and 09/11 negative. Sputum Cx negative Antibiotics: day 7 of vancomycin (09/11 at 1115) and Cefepime (09/11 1039) O2 requirement improving Continue to wean O2 as tolerated Continue IV abx. (4) Influenza A: Code(s): J10.1 - Influenza due to other identified influenza virus with other respiratory manifestations Status: Acute Assessment and Plan: Patient presents with cough, fever and found to have Influenza A. Started on Tamiflu Extending Tamiflu to a 10 day course give his current severe illness Wean O2 as tolerated (5) Qdxyr-yd-snonsid kidney injury: Code(s): N17.9 - Acute kidney failure, unspecified; N18.9 - Chronic kidney disease, unspecified Status: Acute Assessment and Plan: Patient with CKD but unclear on baseline. Renal US 01/2020 showing bilateral renal cortical atrophy, mild on the right and moderate on the left. Cr 2.0 on admission Cr improved but Cr back up to 1.6 related to Lasix Lasix stopped and Cr better at 1.5. Follow (6) Nausea vomiting and diarrhea: Code(s): R11.2 - Nausea with vomiting, unspecified; R19.7 - Diarrhea, unspecified Status: Acute Assessment and Plan: Patiet present with nausea, vomiting and diarrhea. Likely secondary to viral illness Symptoms have resolved Checking for legionella Continue supportive care (7) Coronary artery disease: Code(s): I25.10 - Atherosclerotic heart disease of [place] coronary artery without angina pectoris Status: Acute Assessment and Plan: Hx of CAD Stable Continue Lipitor, Lopressor, ticagrelor (8) Tobacco dependence: Code(s): F17.200 - Nicotine dependence, unspecified, uncomplicated Status: Acute Assessment and Plan: He was educated about the benefits of smoking cessation. Nicotine patch is helpful (9) DVT prophylaxis: Code(s): Z29.9 - Encounter for prophylactic measures, unspecified Status: Acute Assessment and Plan: Lovenox Subjective Date/time seen: 09/17/21 15:23 Interval history: 61yo male with CAD and ongoing tobacco use here for nausea, vomiting, diarrhea and cough. Patient still with cough that is nonproductive. Walking to the bathroom and sitting in the chair. Lightheaded at times. Voiding normally. Exam Narrative: AF 97.2 136/62 67 18 98% 2L HFNC Gen - NARD Chest -distant breath sounds CV - RRR S1/S2. Tele
--- NOTE | 2021-09-17 15:56 | PCRCNOTE ---
HOME O2 EVAL COMPLETE, NO REQUIREMENTS
--- NOTE | 2021-09-17 18:23 | PC.NURSE ---
This patient, Frederick Jarvis, was received from [[facility]] on 09/17/21 at 1823. Patient/family oriented to unit policies and routines
--- NOTE | 2021-09-17 18:27 | PC.NURSE ---
This patient, Frederick Jarvis, was transferred to [[id number] ] on 09/17/21 at 1815. Personal belongings sent with patient. Report given to [SAURAHB Cheung @ [phone] ]. Appropriate documentation sent with patient. Transfer of patient delayed d/t awaiting cleaning of room
[2021-09-18] VITALS (15 sets, daily range): BP systolic 137–159; BP diastolic 62–68; PULSE 63–78; RESP 18–20; TEMP 36.1–36.7; O2SAT 95–98
[2021-09-18] MEDS: HYDROcodone/acetaminophen (*CRX) 5-325 MG TABLET 1 TAB PO ×2 (00:32→20:29)
[2021-09-18] MEDS: ALBUTEROL SULFATE (*SP) AEROSOL 1 PUFF 2 PUFF INHALATION (00:47)
[2021-09-18 06:09] LABS: Anion Gap 7 mmol/L (8-16); Blood Urea Nitrogen 22 mg/dL (9-20); Calcium 8.8 mg/dL (8.4-10.2); Carbon Dioxide 27 mmol/L (22-30); Chloride 102 mmol/L (98-107); Estimated CRCL calculation 62 ml/min; Estimated Glomerular Filt Rate 56; Glucose 109 mg/dL (65-110); Potassium 4.2 mmol/L (3.4-5.0); Sodium 136 mmol/L (137-145)
[2021-09-18] MEDS: ALBUTEROL SULFATE NEB 2.5 MG/0.5 ML INH INHALATION ×3 (08:33→20:37)
[2021-09-18] MEDS: IPRATROPIUM BR 0.02% INH SOLN 0.5 MG/2.5 ML VIAL INHALATION ×3 (08:34→20:37)
[2021-09-18] MEDS: ATORVASTATIN 40 MG TABLET PO (08:49)
[2021-09-18] MEDS: ENOXAPARIN 40 MG/0.4 ML SYRINGE SUB-Q (08:49)
[2021-09-18] MEDS: ASPIRIN 81 MG ENTERIC TABLET PO (08:49)
[2021-09-18] MEDS: amLODIPine BESYLATE 5 MG TABLET 10 MG PO (08:49)
[2021-09-18] MEDS: METOPROLOL TARTRATE 12.5 MG TABLET PO ×2 (08:50→20:30)
[2021-09-18] MEDS: FENOFIBRATE NANOCRYSTALLIZED 145 MG TABLET PO (08:50)
[2021-09-18] MEDS: OSELTAMIVIR PHOSPHATE 75 MG CAPSULE PO ×2 (08:50→20:28)
[2021-09-18] MEDS: TICAGRELOR 90 MG TABLET PO ×2 (08:50→20:28)
[2021-09-18] MEDS: NICOTINE (*PBKC) 21 MG PATCH 1 PATCH TRANSDERM (08:50)
[2021-09-18] MEDS: FLUTICASONE PROPIONATE 0.05% NA SPR 16 GM BTL (*BKC) 2 SPRAY NASAL (08:51)
[2021-09-18] MEDS: guaiFENesin/DEXTROMETHORPHAN 10 ML UDC PO ×3 (08:56→22:04)
--- NOTE | 2021-09-18 10:00 | P.PNIM_ITS ---
Progress Note: A&P Assessment and Plan (1) Acute respiratory failure: Code(s): J96.00 - Acute respiratory failure, unspecified whether with hypoxia or hypercapnia Status: Acute Assessment and Plan: Patient was on room air initially with ABG 7.46/28/57 but worsened. Now with Acute hypoxic resp failure. * ABG 09/11 showing 7.48/30/67 on 15L * Was on HFNC and NRB mask but weaned to HFNC only * Related to Influenza A PNA and 2nd bacterial PNA * O2 requirement improved to 2L * CXR 09/14 showing persistent but improved opacities of the lungs. * Encouraged IS and Flutter valve use * Encouraged him to be out of bed. * Continue Albuterol and Atrovent nebs Q4hr but change to Q6h * Patient still complaining of shortness of breath continue current treatment (2) Sepsis: Code(s): A41.9 - Sepsis, unspecified organism Status: Acute Assessment and Plan: Severe sepsis present on admission with fever, RONY, respiratory failure, tachycardia, tachypnea. * Symptoms have improved. Fever resolved. * RONY did resolve * Still with respiratory failure but improving (3) Pneumonia: Code(s): J18.9 - Pneumonia, unspecified organism Status: Acute Assessment and Plan: Patient presents with GI symptoms and cough with fever. * CXR was clear on admission but repeat CXR showing worsening opacities atelecta sis versus pneumonia * WBC normal * COVID negative but Influenza A positive. * Patient likely has superimposed bacterial pneumonia on influenza A * BCx 09/08 and 09/11 negative. Sputum Cx negative * Antibiotics: day 7 of vancomycin (09/11 at 1115) and Cefepime (09/11 1039) * O2 requirement improving * Continue to wean O2 as tolerated (4) Influenza A: Code(s): J10.1 - Influenza due to other identified influenza virus with other respiratory manifestations Status: Acute Assessment and Plan: Patient presents with cough, fever and found to have Influenza A. * Started on Tamiflu * Extending Tamiflu to a 10 day course give his current severe illness * Wean O2 as tolerated (5) Uxxyq-ta-akjleep kidney injury: Code(s): N17.9 - Acute kidney failure, unspecified; N18.9 - Chronic kidney disease, unspe cified Status: Acute Assessment and Plan: Patient with CKD but unclear on baseline. * Renal US 01/2020 showing bilateral renal cortical atrophy, mild on the right and moderate on the left. * Cr 2.0 on admission * Cr improved but Cr back up to 1.6 related to Lasix * Lasix stopped due to worsening renal failure monitor (6) Nausea vomiting and diarrhea: Code(s): R11.2 - Nausea with vomiting, unspecified; R19.7 - Diarrhea, unspecified Status: Acute Assessment and Plan: Patiet present with nausea, vomiting and diarrhea. * Likely secondary to viral illness * Symptoms have resolved * Checking for legionella * Continue supportive care (7) Coronary artery disease: Code(s): I25.10 - Atherosclerotic heart disease of [place] coronary artery without angina pectoris Status: Acute Assessment and Plan: Hx of CAD * Stable * Continue Lipitor, Lopressor, ticagrelor (8) Tobacco dependence: Code(s): F17.200 - Nicotine dependence, unspecified, uncomplicated Status: Acute Assessment and Plan: He was educated about the benefits of smoking cessation. Nicotine patch is helpful (9) DVT prophylaxis: Code(s): Z29.9 - Encounter for prophylactic measures, unspecified Status: Ac
--- NOTE | 2021-09-18 10:00 | PM.IMPN ---
Progress Note: A&P Assessment and Plan (1) Acute respiratory failure: Code(s): J96.00 - Acute respiratory failure, unspecified whether with hypoxia or hypercapnia Status: Acute Assessment and Plan: Patient was on room air initially with ABG 7.46/28/57 but worsened. Now with Acute hypoxic resp failure. ABG 09/11 showing 7.48/30/67 on 15L Was on HFNC and NRB mask but weaned to HFNC only Related to Influenza A PNA and 2nd bacterial PNA O2 requirement improved to 2L CXR 09/14 showing persistent but improved opacities of the lungs. Encouraged IS and Flutter valve use Encouraged him to be out of bed. Continue Albuterol and Atrovent nebs Q4hr but change to Q6h Patient still complaining of shortness of breath continue current treatment (2) Sepsis: Code(s): A41.9 - Sepsis, unspecified organism Status: Acute Assessment and Plan: Severe sepsis present on admission with fever, RONY, respiratory failure, tachycardia, tachypnea. Symptoms have improved. Fever resolved. RONY did resolve Still with respiratory failure but improving (3) Pneumonia: Code(s): J18.9 - Pneumonia, unspecified organism Status: Acute Assessment and Plan: Patient presents with GI symptoms and cough with fever. CXR was clear on admission but repeat CXR showing worsening opacities atelectasis versus pneumonia WBC normal COVID negative but Influenza A positive. Patient likely has superimposed bacterial pneumonia on influenza A BCx 09/08 and 09/11 negative. Sputum Cx negative Antibiotics: day 7 of vancomycin (09/11 at 1115) and Cefepime (09/11 1039) O2 requirement improving Continue to wean O2 as tolerated (4) Influenza A: Code(s): J10.1 - Influenza due to other identified influenza virus with other respiratory manifestations Status: Acute Assessment and Plan: Patient presents with cough, fever and found to have Influenza A. Started on Tamiflu Extending Tamiflu to a 10 day course give his current severe illness Wean O2 as tolerated (5) Rviuf-yd-hljlhhc kidney injury: Code(s): N17.9 - Acute kidney failure, unspecified; N18.9 - Chronic kidney disease, unspecified Status: Acute Assessment and Plan: Patient with CKD but unclear on baseline. Renal US 01/2020 showing bilateral renal cortical atrophy, mild on the right and moderate on the left. Cr 2.0 on admission Cr improved but Cr back up to 1.6 related to Lasix Lasix stopped due to worsening renal failure monitor (6) Nausea vomiting and diarrhea: Code(s): R11.2 - Nausea with vomiting, unspecified; R19.7 - Diarrhea, unspecified Status: Acute Assessment and Plan: Patiet present with nausea, vomiting and diarrhea. Likely secondary to viral illness Symptoms have resolved Checking for legionella Continue supportive care (7) Coronary artery disease: Code(s): I25.10 - Atherosclerotic heart disease of [place] coronary artery without angina pectoris Status: Acute Assessment and Plan: Hx of CAD Stable Continue Lipitor, Lopressor, ticagrelor (8) Tobacco dependence: Code(s): F17.200 - Nicotine dependence, unspecified, uncomplicated Status: Acute Assessment and Plan: He was educated about the benefits of smoking cessation. Nicotine patch is helpful (9) DVT prophylaxis: Code(s): Z29.9 - Encounter for prophylactic measures, unspecified Status: Acute Assessment and Plan: Lovenox Subjective Date/time seen: 09/18/21 10:00 Interval history: 61yo male with CAD and ongoing tobacco use here for nausea, vomiting, diarrhea and cough. Patient still complaining of cough Patient feels better today Patient denies fever headache chest pain I am seeing the patient for shortness of breath Exam Narrative: AF 97.2 136/62 67 18 98% 2L HFNC Gen - NARD Chest -distant breath sounds CV - RRR S1/S2. T
[2021-09-18 10:22] LABS: Basophils Absolute Auto 0.1 K/mm3 (0.0-0.1); Basophils Percent Auto 0.7 % (0.2-1.2); Eosinophils Absolute Auto 0.2 K/mm3 (0-0.3); Eosinophils Percent Auto 2.2 % (0-4.4); Hematocrit 35.4 % (42.0-52.0); Hemoglobin 11.6 g/dL (14.0-18.0); Immature Granulocyte Absolute 0.24 K/mm3 (0.00-0.031); Immature Granulocyte Percent A 3.6 % (0-0.5); Lymphocytes Percent Auto 22.4 % (18.3-44.2); Mean Corpuscular HGB Conc 32.8 g/dl (32-36); Mean Corpuscular Hemoglobin 29.6 pg (26-34); Mean Corpuscular Volume 90.3 fl (80-100); Mean Platelet Volume 9.9 fl (7.4-10.4); Monocytes Absolute Auto 0.8 K/mm3 (0.1-0.6); Monocytes Percent Auto 11.3 % (2.6-8.5); Neutrophils Percent Auto 59.8 % (45.5-73.1); Platelet Count Result 459 k/mm3 (150-375); Red Blood Count 3.92 M/mm3 (4.6-6.20); Red Cell Distribution Width 14.3 % (11.5-14.5); White Blood Count 6.7 K/mm3 (4.5-10.0)
[2021-09-18 10:35] LABS: Alanine Aminotransferase 28 U/L (4-50); Albumin Level 3.8 g/dL (3.5-5.1); Alkaline Phosphatase 61 U/L (38-126); Anion Gap 4 mmol/L (8-16); Aspartate Amino Transferase 35 U/L (17-59); Bilirubin,Total 0.4 mg/dL (0.2-1.3); Blood Urea Nitrogen 21 mg/dL (9-20); Carbon Dioxide 33 mmol/L (22-30); Chloride 98 mmol/L (98-107); Estimated CRCL calculation 62 ml/min; Estimated Glomerular Filt Rate 56; Glucose 149 mg/dL (65-110); Potassium 3.8 mmol/L (3.4-5.0); Sodium 135 mmol/L (137-145)
[2021-09-19] VITALS (13 sets, daily range): BP systolic 138–151; BP diastolic 60–79; PULSE 61–71; RESP 12–20; TEMP 36.3–36.6; O2SAT 94–98
[2021-09-19 06:08] LABS: Basophils Percent Auto 0.6 % (0.2-1.2); Eosinophils Absolute Auto 0.2 K/mm3 (0-0.3); Hematocrit 37.5 % (42.0-52.0); Hemoglobin 11.8 g/dL (14.0-18.0); Immature Granulocyte Absolute 0.27 K/mm3 (0.00-0.031); Lymphocytes Absolute Auto 1.62 K/mm3 (0.9-3.2); Mean Corpuscular HGB Conc 31.5 g/dl (32-36); Mean Corpuscular Hemoglobin 29.5 pg (26-34); Mean Corpuscular Volume 93.8 fl (80-100); Mean Platelet Volume 10.1 fl (7.4-10.4); Monocytes Absolute Auto 0.8 K/mm3 (0.1-0.6); Monocytes Percent Auto 11.1 % (2.6-8.5); Neutrophils Absolute Auto 3.9 K/mm3 (1.3-6.7); Neutrophils Percent Auto 57.3 % (45.5-73.1); Platelet Count Result 451 k/mm3 (150-375); Red Cell Distribution Width 14.3 % (11.5-14.5); White Blood Count 6.7 K/mm3 (4.5-10.0)
[2021-09-19 06:32] LABS: Alanine Aminotransferase 27 U/L (4-50); Albumin Level 3.9 g/dL (3.5-5.1); Alkaline Phosphatase 66 U/L (38-126); Anion Gap 4 mmol/L (8-16); Aspartate Amino Transferase 36 U/L (17-59); Bilirubin,Total 0.4 mg/dL (0.2-1.3); Blood Urea Nitrogen 20 mg/dL (9-20); Carbon Dioxide 30 mmol/L (22-30); Chloride 100 mmol/L (98-107); Estimated CRCL calculation 67 ml/min; Estimated Glomerular Filt Rate > 60; Glucose 125 mg/dL (65-110); Sodium 134 mmol/L (137-145)
[2021-09-19] MEDS: ALBUTEROL SULFATE NEB 2.5 MG/0.5 ML INH INHALATION ×3 (08:08→21:02)
[2021-09-19] MEDS: IPRATROPIUM BR 0.02% INH SOLN 0.5 MG/2.5 ML VIAL INHALATION ×3 (08:09→21:02)
--- NOTE | 2021-09-19 08:51 | P.PNIM_ITS ---
Progress Note: A&P Assessment and Plan (1) Acute respiratory failure: Code(s): J96.00 - Acute respiratory failure, unspecified whether with hypoxia or hypercapnia Status: Acute Assessment and Plan: Patient was on room air initially with ABG 7.46/28/57 but worsened. Now with Acute hypoxic resp failure. * ABG 09/11 showing 7.48/30/67 on 15L * Was on HFNC and NRB mask but weaned to HFNC only * Related to Influenza A PNA and 2nd bacterial PNA * O2 requirement improved to 2L * CXR 09/14 showing persistent but improved opacities of the lungs. * Encouraged IS and Flutter valve use * Encouraged him to be out of bed. * Continue Albuterol and Atrovent nebs Q4hr but change to Q6h * Patient still complaining of shortness of breath continue current treatment will get CT scan of the chest BNP * Give 1 dose of Lasix 40 mg IV x1 if BNP elevated will consider echo last echo shows ejection fraction 55% 2020 (2) Sepsis: Code(s): A41.9 - Sepsis, unspecified organism Status: Acute Assessment and Plan: Severe sepsis present on admission with fever, RONY, respiratory failure, tachycardia, tachypnea. * Symptoms have improved. Fever resolved. * RONY did resolve * Still with respiratory failure today patient is more short of breath (3) Pneumonia: Code(s): J18.9 - Pneumonia, unspecified organism Status: Acute Assessment and Plan: Patient presents with GI symptoms and cough with fever. * CXR was clear on admission but repeat CXR showing worsening opacities atelectasis versus pneumonia * WBC normal * COVID negative but Influenza A positive. * Patient likely has superimposed bacterial pneumonia on influenza A * BCx 09/08 and 09/11 negative. Sputum Cx negative * Antibiotics: DC vancomycin DC cefepime started Rocephin on 09/19/2021 expected to complete course of antibiotic on 09/21/21 can be switched to oral antibiotic at discharge cefdinir till 09/21/2021 * O2 requirement improving * Continue to wean O2 as tolerated * Home O2 eval before discharge * CT scan was ordered today re-evaluate as patient is more short of breath (4) Influenza A: Code(s): J10.1 - Influenza due to other identified influenza virus with other respiratory manifestations Status: Acute Assessment and Plan: Patient presents with cough, fever and found to have Influenza A. * Started on Tamiflu * Extending Tamiflu to a 10 day course give his current severe illness * Wean O2 as tolerated (5) Mgqsn-yp-znetahl kidney injury: Code(s): N17.9 - Acute kidney failure, unspecified; N18.9 - Chronic kidney disease, unspecified Status: Acute Assessment and Plan: Patient with CKD but unclear on baseline. * Renal US 01/2020 showing bilateral renal cortical atrophy, mild on the right and moderate on the left. * Cr 2.0 on admission * Cr improved * Give 1 dose of IV Lasix today and re-evaluate as patient is more short of sarah th (6) Nausea vomiting and diarrhea: Code(s): R11.2 - Nausea with vomiting, unspecified; R19.7 - Diarrhea, unspecified Status: Acute Assessment and Plan: Patiet present with nausea, vomiting and diarrhea. * Likely secondary to viral illness * Symptoms have resolved * Continue supportive care (7) Coronary artery disease: Code(s): I25.10 - Atherosclerotic heart disease of [place] coronary artery without angina pectoris Status: Acute Assessment and Plan: Hx of CAD * Stable * Continue Lipitor, Lopressor, ticagrelor
--- NOTE | 2021-09-19 08:51 | PM.IMPN ---
Progress Note: A&P Assessment and Plan (1) Acute respiratory failure: Code(s): J96.00 - Acute respiratory failure, unspecified whether with hypoxia or hypercapnia Status: Acute Assessment and Plan: Patient was on room air initially with ABG 7.46//57 but worsened. Now with Acute hypoxic resp failure. ABG 09/11 showing 7.48/30/67 on 15L Was on HFNC and NRB mask but weaned to HFNC only Related to Influenza A PNA and 2nd bacterial PNA O2 requirement improved to 2L CXR 09/14 showing persistent but improved opacities of the lungs. Encouraged IS and Flutter valve use Encouraged him to be out of bed. Continue Albuterol and Atrovent nebs Q4hr but change to Q6h Patient still complaining of shortness of breath continue current treatment will get CT scan of the chest BNP Give 1 dose of Lasix 40 mg IV x1 if BNP elevated will consider echo last echo shows ejection fraction 55% 2020 (2) Sepsis: Code(s): A41.9 - Sepsis, unspecified organism Status: Acute Assessment and Plan: Severe sepsis present on admission with fever, RONY, respiratory failure, tachycardia, tachypnea. Symptoms have improved. Fever resolved. RONY did resolve Still with respiratory failure today patient is more short of breath (3) Pneumonia: Code(s): J18.9 - Pneumonia, unspecified organism Status: Acute Assessment and Plan: Patient presents with GI symptoms and cough with fever. CXR was clear on admission but repeat CXR showing worsening opacities atelectasis versus pneumonia WBC normal COVID negative but Influenza A positive. Patient likely has superimposed bacterial pneumonia on influenza A BCx 09/08 and 09/11 negative. Sputum Cx negative Antibiotics: DC vancomycin DC cefepime started Rocephin on 09/19/2021 expected to complete course of antibiotic on 09/21/21 can be switched to oral antibiotic at discharge cefdinir till 09/21/2021 O2 requirement improving Continue to wean O2 as tolerated Home O2 eval before discharge CT scan was ordered today re-evaluate as patient is more short of breath (4) Influenza A: Code(s): J10.1 - Influenza due to other identified influenza virus with other respiratory manifestations Status: Acute Assessment and Plan: Patient presents with cough, fever and found to have Influenza A. Started on Tamiflu Extending Tamiflu to a 10 day course give his current severe illness Wean O2 as tolerated (5) Wugji-jr-kgoyepd kidney injury: Code(s): N17.9 - Acute kidney failure, unspecified; N18.9 - Chronic kidney disease, unspecified Status: Acute Assessment and Plan: Patient with CKD but unclear on baseline. Renal US 01/2020 showing bilateral renal cortical atrophy, mild on the right and moderate on the left. Cr 2.0 on admission Cr improved Give 1 dose of IV Lasix today and re-evaluate as patient is more short of breath (6) Nausea vomiting and diarrhea: Code(s): R11.2 - Nausea with vomiting, unspecified; R19.7 - Diarrhea, unspecified Status: Acute Assessment and Plan: Patiet present with nausea, vomiting and diarrhea. Likely secondary to viral illness Symptoms have resolved Continue supportive care (7) Coronary artery disease: Code(s): I25.10 - Atherosclerotic heart disease of [place] coronary artery without angina pectoris Status: Acute Assessment and Plan: Hx of CAD Stable Continue Lipitor, Lopressor, ticagrelor (8) Tobacco dependence: Code(s): F17.200 - Nicotine dependence, unspecified, uncomplicated Status: Acute Assessment and Plan: He was educated about the benefits of smoking cessation. Nicotine patch is helpful (9) DVT prophylaxis: Code(s): Z29.9 - Encounter for prophylactic measures, unspecified Status: Acute Assessment and Plan: Shay Mckinnon Date/time seen: 09/19/21 08:51 Interval history: 61yo
[2021-09-19] MEDS: amLODIPine BESYLATE 5 MG TABLET 10 MG PO (09:18)
[2021-09-19] MEDS: METOPROLOL TARTRATE 12.5 MG TABLET PO ×2 (09:19→20:19)
[2021-09-19] MEDS: NICOTINE (*PBKC) 21 MG PATCH 1 PATCH TRANSDERM (09:19)
[2021-09-19] MEDS: OSELTAMIVIR PHOSPHATE 75 MG CAPSULE PO ×2 (09:19→20:19)
[2021-09-19] MEDS: FENOFIBRATE NANOCRYSTALLIZED 145 MG TABLET PO (09:19)
[2021-09-19] MEDS: ATORVASTATIN 40 MG TABLET PO (09:19)
[2021-09-19] MEDS: TICAGRELOR 90 MG TABLET PO ×2 (09:19→20:20)
[2021-09-19] MEDS: ASPIRIN 81 MG ENTERIC TABLET PO (09:19)
[2021-09-19] MEDS: FLUTICASONE PROPIONATE 0.05% NA SPR 16 GM BTL (*BKC) 2 SPRAY NASAL (09:19)
[2021-09-19] MEDS: FUROSEMIDE INJ 40 MG/4 ML VIAL IV PUSH (09:19)
[2021-09-19] MEDS: ENOXAPARIN 40 MG/0.4 ML SYRINGE SUB-Q (09:19)
[2021-09-19 09:25] LABS: NT Pro B Type Natriuretic Pept 447 pg/mL (5-100)
[2021-09-19] MEDS: cefTRIAXone 2 GM in SODIUM CHLORIDE 0.9% IV 100 ML 200 ML IVPB (10:11)
--- NOTE | 2021-09-19 12:50 | PCPTNOTE ---
Attempted PT treatment, patient requested therapy return later stating I don't really feel like it right now, I want to let my food digest .
[2021-09-20] VITALS (12 sets, daily range): BP systolic 144–148; BP diastolic 72–76; PULSE 59–85; RESP 18; TEMP 36.4–37; O2SAT 91–98
[2021-09-20 06:12] LABS: Basophils Absolute Auto 0.1 K/mm3 (0.0-0.1); Basophils Percent Auto 0.7 % (0.2-1.2); Eosinophils Absolute Auto 0.2 K/mm3 (0-0.3); Eosinophils Percent Auto 2.6 % (0-4.4); Hemoglobin 11.6 g/dL (14.0-18.0); Immature Granulocyte Absolute 0.16 K/mm3 (0.00-0.031); Immature Granulocyte Percent A 2.2 % (0-0.5); Lymphocytes Absolute Auto 1.89 K/mm3 (0.9-3.2); Lymphocytes Percent Auto 25.9 % (18.3-44.2); Mean Corpuscular HGB Conc 32.2 g/dl (32-36); Mean Corpuscular Hemoglobin 29.4 pg (26-34); Mean Corpuscular Volume 91.4 fl (80-100); Mean Platelet Volume 10.1 fl (7.4-10.4); Monocytes Absolute Auto 0.8 K/mm3 (0.1-0.6); Neutrophils Absolute Auto 4.2 K/mm3 (1.3-6.7); Neutrophils Percent Auto 57.6 % (45.5-73.1); Platelet Count Result 461 k/mm3 (150-375); Red Blood Count 3.94 M/mm3 (4.6-6.20); Red Cell Distribution Width 14.2 % (11.5-14.5); White Blood Count 7.3 K/mm3 (4.5-10.0)
[2021-09-20 06:22] LABS: Alanine Aminotransferase 26 U/L (4-50); Alkaline Phosphatase 82 U/L (38-126); Anion Gap 7 mmol/L (8-16); Aspartate Amino Transferase 38 U/L (17-59); Bilirubin,Total 0.3 mg/dL (0.2-1.3); Blood Urea Nitrogen 20 mg/dL (9-20); Calcium 9.2 mg/dL (8.4-10.2); Carbon Dioxide 30 mmol/L (22-30); Chloride 100 mmol/L (98-107); Estimated CRCL calculation 58 ml/min; Estimated Glomerular Filt Rate 52; Glucose 137 mg/dL (65-110); Potassium 3.8 mmol/L (3.4-5.0); Sodium 137 mmol/L (137-145)
[2021-09-20] MEDS: cefTRIAXone 2 GM in SODIUM CHLORIDE 0.9% IV 100 ML 200 ML IVPB (08:09)
[2021-09-20] MEDS: ASPIRIN 81 MG ENTERIC TABLET PO (08:09)
[2021-09-20] MEDS: ATORVASTATIN 40 MG TABLET PO (08:09)
[2021-09-20] MEDS: amLODIPine BESYLATE 5 MG TABLET 10 MG PO (08:09)
[2021-09-20] MEDS: ENOXAPARIN 40 MG/0.4 ML SYRINGE SUB-Q (08:09)
[2021-09-20] MEDS: OSELTAMIVIR PHOSPHATE 75 MG CAPSULE PO (08:10)
[2021-09-20] MEDS: METOPROLOL TARTRATE 12.5 MG TABLET PO (08:10)
[2021-09-20] MEDS: NICOTINE (*PBKC) 21 MG PATCH 1 PATCH TRANSDERM (08:10)
[2021-09-20] MEDS: TICAGRELOR 90 MG TABLET PO (08:10)
[2021-09-20] MEDS: FLUTICASONE PROPIONATE 0.05% NA SPR 16 GM BTL (*BKC) 2 SPRAY NASAL (08:10)
[2021-09-20] MEDS: FENOFIBRATE NANOCRYSTALLIZED 145 MG TABLET PO (08:33)
[2021-09-20] MEDS: IPRATROPIUM BR 0.02% INH SOLN 0.5 MG/2.5 ML VIAL INHALATION ×2 (08:39→14:39)
[2021-09-20] MEDS: ALBUTEROL SULFATE NEB 2.5 MG/0.5 ML INH INHALATION ×2 (08:39→14:39)
--- NOTE | 2021-09-20 15:19 | P.DS_ITS ---
DS: Admitting Diagnosis Discharge Date 09/20/21 Admitting Diagnosis Shortness of Breath DS: Discharge Diagnosis Discharge Diagnosis (1) Acute respiratory failure: Code(s): J96.00 - Acute respiratory failure, unspecified whether with hypoxia or hypercapnia Status: Acute Assessment and Plan: Patient was on room air initially with ABG 7.46//57 but worsened to acute hypoxic respiratory failure. * ABG 09/11 showing 7.48/30/67 on 15L * Was on HFNC and NRB mask but weaned to HFNC only then close to room air * Related to Influenza A PNA and 2nd bacterial PNA * O2 requirement improved overall * CXR 09/14 showing persistent but improved opacities of the lungs. * Encouraged IS and Flutter valve use and increase activity * Treated with Albuterol and Atrovent nebs * Patient still complaining of shortness of breath continue current treatment so CT Chest ordered * CT chest showing multi segmental left lower lobe atelectasis and pneumonia, small parapneumonic effusion and small amount of right lower lobe opacity. * He was treated with intermittent doses of Lasix; Last echo shows ejection fraction 55% 2020 * He will need 3 month follow-up chest CT. * Home O2 evaluation performed prior to discharge and patient did not require oxygen at discharge. (2) Sepsis: Code(s): A41.9 - Sepsis, unspecified organism Status: Acute Assessment and Plan: Severe sepsis present on admission with fever, RONY, respiratory failure, tachycardia, tachypnea. * Symptoms have improved. Fever resolved. * RONY did resolve * Respiratory failure symptoms improved. (3) Pneumonia: Code(s): J18.9 - Pneumonia, unspecified organism Status: Acute Assessment and Plan: Patient presents with GI symptoms and cough with fever. * CXR was clear on admission but repeat CXR showing worsening opacities: atelectasis versus pneumonia * WBC normal. COVID negative but Influenza A positive. * Patient likely has superimposed bacterial pneumonia on influenza A * BCx 09/08 and 09/11 negative. Sputum Cx negative * Antibiotics: Treated with vancomycin and cefepime but changed to Rocephin on 09/19. * O2 requirement improving * Abx treatment through 09/24/21 (4) Influenza A: Code(s): J10.1 - Influenza due to other identified influenza virus with other respiratory manifestations Status: Acute Assessment and Plan: Patient presents with cough, fever and found to have Influenza A. * Started on Tamiflu * We extended Tamiflu to a 10 day course give his current severe illness * As above. (5) Tptjg-ub-labixxt kidney injury: Code(s): N17.9 - Acute kidney failure, unspecified; N18.9 - Chronic kidney disease, unspecified Status: Acute Assessment and Plan: Patient with CKD but unclear on baseline. * Renal US 01/2020 showing bilateral renal cortical atrophy, mild on the right and moderate on the left. * Cr 2.0 on admission * Cr improved * Tolerated intermittent Lasix dosing. (6) Nausea vomiting and diarrhea: Code(s): R11.2 - Nausea with vomiting, unspecified; R19.7 - Diarrhea, unspecified Status: Acute Assessment and Plan: Patiet present with nausea, vomiting and diarrhea. * Likely secondary to viral illness * Symptoms resolved (7) Coronary artery disease: Code(s): I25.10 - Atherosclerotic heart disease of [place] coronary artery without angina pectoris Status: Acute Assessment and Plan: Hx of CAD * Stable * We
--- NOTE | 2021-09-20 15:19 | PM.DS ---
DS: Admitting Diagnosis Discharge Date 09/20/21 Admitting Diagnosis Shortness of Breath DS: Discharge Diagnosis Discharge Diagnosis (1) Acute respiratory failure: Code(s): J96.00 - Acute respiratory failure, unspecified whether with hypoxia or hypercapnia Status: Acute Assessment and Plan: Patient was on room air initially with ABG 7.46//57 but worsened to acute hypoxic respiratory failure. ABG 09/11 showing 7.48/30/67 on 15L Was on HFNC and NRB mask but weaned to HFNC only then close to room air Related to Influenza A PNA and 2nd bacterial PNA O2 requirement improved overall CXR 09/14 showing persistent but improved opacities of the lungs. Encouraged IS and Flutter valve use and increase activity Treated with Albuterol and Atrovent nebs Patient still complaining of shortness of breath continue current treatment so CT Chest ordered CT chest showing multi segmental left lower lobe atelectasis and pneumonia, small parapneumonic effusion and small amount of right lower lobe opacity. He was treated with intermittent doses of Lasix; Last echo shows ejection fraction 55% 2020 He will need 3 month follow-up chest CT. Home O2 evaluation performed prior to discharge and patient did not require oxygen at discharge. (2) Sepsis: Code(s): A41.9 - Sepsis, unspecified organism Status: Acute Assessment and Plan: Severe sepsis present on admission with fever, RONY, respiratory failure, tachycardia, tachypnea. Symptoms have improved. Fever resolved. RONY did resolve Respiratory failure symptoms improved. (3) Pneumonia: Code(s): J18.9 - Pneumonia, unspecified organism Status: Acute Assessment and Plan: Patient presents with GI symptoms and cough with fever. CXR was clear on admission but repeat CXR showing worsening opacities: atelectasis versus pneumonia WBC normal. COVID negative but Influenza A positive. Patient likely has superimposed bacterial pneumonia on influenza A BCx 09/08 and 09/11 negative. Sputum Cx negative Antibiotics: Treated with vancomycin and cefepime but changed to Rocephin on 09/19. O2 requirement improving Abx treatment through 09/24/21 (4) Influenza A: Code(s): J10.1 - Influenza due to other identified influenza virus with other respiratory manifestations Status: Acute Assessment and Plan: Patient presents with cough, fever and found to have Influenza A. Started on Tamiflu We extended Tamiflu to a 10 day course give his current severe illness As above. (5) Amwme-ez-smjjphv kidney injury: Code(s): N17.9 - Acute kidney failure, unspecified; N18.9 - Chronic kidney disease, unspecified Status: Acute Assessment and Plan: Patient with CKD but unclear on baseline. Renal US 01/2020 showing bilateral renal cortical atrophy, mild on the right and moderate on the left. Cr 2.0 on admission Cr improved Tolerated intermittent Lasix dosing. (6) Nausea vomiting and diarrhea: Code(s): R11.2 - Nausea with vomiting, unspecified; R19.7 - Diarrhea, unspecified Status: Acute Assessment and Plan: Patiet present with nausea, vomiting and diarrhea. Likely secondary to viral illness Symptoms resolved (7) Coronary artery disease: Code(s): I25.10 - Atherosclerotic heart disease of [place] coronary artery without angina pectoris Status: Acute Assessment and Plan: Hx of CAD Stable We continued Lipitor, Lopressor, ticagrelor (8) Tobacco dependence: Code(s): F17.200 - Nicotine dependence, unspecified, uncomplicated Status: Acute Assessment and Plan: He was educated about the benefits of smoking cessation. DS: Summary Hospital Course Reason for hospitalization: 61yo male with CAD and ongoing tobacco use here for nausea, vomiting, diarrhea and cough. Please see H&P for details. Hospital Course: Please see above or details
--- NOTE | 2021-09-20 15:41 | HOMEO2EVAL ---
Evaluation was performed at [facility] Home Oxygen Evaluation RC: Home Oxygen (O2) Evaluation Start: 09/20/21 12:39 Freq: ONCE Status: Active Protocol: RPE Activity Type Activity Date Activity User E-Sign Co-Sign Detail Recorded Client Recorded Date Recorded By Document 09/20/21 15:37 KRM [id number] 09/20/21 15:41 KRM Document 09/20/21 15:41 KRM [id number] 09/20/21 15:41 KRM 09/20/21 09/20/21 15:37 15:41 Home O2 Evaluation Test Phase Resting Exercise Oxygen Delivery Room Air Room Air Pulse Oximetry (90-100 %) 94 91 Pulse Rate (60-100 beats/min) 70 85 Activity Tolerance Fair Ambulation Distance (feet) 100 Ambulation Distance (meters) 30.47 Treatment Charges O2 Evaluation - Inpatient
[2021-09-20 15:44] LABS: Vancomycin Trough 7.2 ug/mL (10.0-20.0)
== END 2021-09-20 16:22 | disposition home or self-care (01) | DRG 720 ==
LOC: ANHED 16:04 → ANH2MED 18:58 → ANHIMU 09-17 07:30 → ANH2MED 09-20 15:34 → ANHIMU 09-21 08:57
PROVIDERS: Internal Medicine; Student in an Organized Health Care Education/Training Program; Admitting Provider Family Medicine; Emergency Provider General Practice; PCP Family Medicine Adolescent Medicine; Visit Provider Internal Medicine
DX: A41.89 Other specified sepsis (principal); R65.20 Severe sepsis without septic shock; Z20.822 Contact with and (suspected) exposure to COVID-19; J11.08 Influenza due to unidentified influenza virus with specified pneumonia; J15.9 Unspecified bacterial pneumonia; J18.9 Pneumonia, unspecified organism; N17.9 Acute kidney failure, unspecified; J96.01 Acute respiratory failure with hypoxia; I12.9 Hypertensive chronic kidney disease with stage 1 through stage 4 chronic kidney disease, or unspecified chronic kidney disease; N18.9 Chronic kidney disease, unspecified; I25.10 Atherosclerotic heart disease of native coronary artery without angina pectoris; K74.60 Unspecified cirrhosis of liver; M70.22 Olecranon bursitis, left elbow; F17.210 Nicotine dependence, cigarettes, uncomplicated; Z86.73 Personal history of transient ischemic attack (TIA), and cerebral infarction without residual deficits; Z86.19 Personal history of other infectious and parasitic diseases; E78.5 Hyperlipidemia, unspecified; E87.6 Hypokalemia
CPT/HCPCS: 36415; 36600; 71045; 71046; 71250; 78580; 80048; 80053; 80202; 81001; 82375; 82565; 82805; 83050; 83605; 83690; 83735; 83880; 84100; 85025; 85027; 85380; 85610; 85730; 86140; 87040; 87070; 87205; 87502; 93005; 93970; 94618; 94640; 94667; 94668; 94669; 96360; 96361; 96365; 96372; 96374; 97110; 97116; 97161; 97165; 97530; 97535; 99285; A9270; A9540; C9803; G0378; G0379; J0131; J0692; J0696; J1644; J1650; J1940; J3370; J7030; U0003; U0005

== ENCOUNTER 2022-12-14 13:22 | Outpatient (CLI) | payer OTHER, SELFPAY ==
--- NOTE | ~2022-12-14 | MR_ITS ---
MRI of the lumbar spine Clinical History: Claudication Technique: Axial T2-weighted images, and sagittal T1-weighted, T2-weighted, and T2 fat-sat images wer e acquired. COMPARISON: 04/08/2020 Findings: There is no fracture or subluxation of the lumbar spine. Vertebral bodies maintain normal h eight and alignment. No bone marrow signal abnormality seen. At L1-L2, there is moderate facet arthropathy. No disc bulge or herniation. No spinal canal stenosis or neural foraminal narrowing. At L2-L3, there is moderate to advanced facet arthropathy. No disc bulge or herniation. No spinal can al stenosis or neural foraminal narrowing. At L3-L4, there is minimal degenerative disc narrowing. No disc bulge or herniation. There is moderat e to advanced facet arthropathy. No central canal stenosis or neural foraminal narrowing. At L4-L5, there is minimal disc bulge with advanced facet arthropathy. No spinal canal stenosis or ne ural foraminal narrowing. At L5-S1, there is no significant disc bulge or herniation. There is moderate facet arthropathy. No s nj canal stenosis or neural foraminal narrowing. Paravertebral soft tissues are unremarkable. Impression: Minimal degenerative changes, as detailed above. No significant canal stenosis or neural foraminal na rrowing evident. Reviewed, dictated and finalized at location . Impression: Minimal degenerative changes, as detailed above. No significant canal stenosis or neural foraminal narrowing evident.
== END 2022-12-14 13:23 | disposition home or self-care (01) ==
PROVIDERS: PCP Family Medicine Adolescent Medicine; Visit Provider Family Medicine Adolescent Medicine
DX: R29.818 Other symptoms and signs involving the nervous system (principal)
CPT/HCPCS: 72148

== ENCOUNTER 2023-01-12 09:36 | Emergency (ER) | payer OTHER, SELFPAY ==
--- NOTE | ~2023-01-12 | XR_ITS ---
Clinical Indication: Cough PA and lateral views of the chest: Comparison: 09/14/2021 Findings: The lungs are clear, without evidence of focal consolidation or pleural effusion. Cardiome diastinal silhouette is within normal limits. Bones and soft tissues are unremarkable. Impression: Normal chest. Reviewed, dictated and finalized at location . Impression: Normal chest.
[2023-01-12 09:39] VITALS: BP 185/83; PULSE 113; RESP 24; TEMP 36.1; O2SAT 97
--- NOTE | 2023-01-12 09:43 | ECG_ITS ---
Measurements Intervals [place] Rate: 96 P: 36 NC: 183 QRS: -12 QRSD: 94 T: 62 QT: 342 QTc: 432 Interpretive Statements SINUS RHYTHM BORDERLINE R WAVE PROGRESSION, ANTERIOR LEADS BORDERLINE ST-T WAVE ABNORMALITY- HIGH LATERAL LEADS BASELINE ARTIFACT- I, II, III, AVR, AVL, AVF, V1, V6 BORDERLINE ECG COMPARED TO ECG 09/08/2021 14:23:17 SINUS RHYTHM NOW PRESENT Electronically Signed On 01-12-2023 13:10:46 CDT by Navid Sinclair D.O.
[2023-01-12 10:01] VITALS: BP 151/95; PULSE 96; RESP 24; O2SAT 99
[2023-01-12 10:29] VITALS: BP 140/87; O2SAT 93
[2023-01-12 10:42] LABS: Basophils Percent Auto 0.5 % (0.2-1.2); Eosinophils Absolute Auto 0.2 K/mm3 (0-0.3); Hematocrit 45.7 % (42.0-52.0); Hemoglobin 15.2 g/dL (14.0-18.0); Immature Granulocyte Absolute 0.07 K/mm3 (0.00-0.031); Lymphocytes Absolute Auto 1.98 K/mm3 (0.9-3.2); Lymphocytes Percent Auto 26.9 % (18.3-44.2); Mean Corpuscular HGB Conc 33.3 g/dl (32-36); Mean Corpuscular Hemoglobin 30.2 pg (26-34); Mean Corpuscular Volume 90.9 fl (80-100); Mean Platelet Volume 10.4 fl (7.4-10.4); Monocytes Absolute Auto 0.6 K/mm3 (0.1-0.6); Neutrophils Absolute Auto 4.5 K/mm3 (1.3-6.7); Neutrophils Percent Auto 61.6 % (45.5-73.1); Platelet Count Result 257 k/mm3 (150-375); Red Blood Count 5.03 M/mm3 (4.6-6.20); Red Cell Distribution Width 14.6 % (11.5-14.5); White Blood Count 7.4 K/mm3 (4.5-10.0)
[2023-01-12 10:50] VITALS: PULSE 102; RESP 22
[2023-01-12 10:52] LABS: Alanine Aminotransferase 31 U/L (6-50); Albumin Level 4.7 g/dL (3.5-5.1); Alkaline Phosphatase 59 U/L (38-126); Anion Gap 10 mmol/L (8-16); Aspartate Amino Transferase 33 U/L (17-59); Bilirubin,Total 0.5 mg/dL (0.2-1.3); Blood Urea Nitrogen 36 mg/dL (9-20); Calcium 10.2 mg/dL (8.4-10.2); Carbon Dioxide 26 mmol/L (22-30); Chloride 105 mmol/L (98-107); Estimated CRCL calculation 42 ml/min; Estimated Glomerular Filt Rate 29; Glucose 115 mg/dL (65-110); Potassium 3.5 mmol/L (3.4-5.0); Sodium 141 mmol/L (137-145)
[2023-01-12] MEDS: IPRATROPIUM BR 0.02% INH SOLN 0.5 MG/2.5 ML VIAL 1 MG INHALATION (10:54)
[2023-01-12] MEDS: ALBUTEROL SULFATE NEB 2.5 MG/3 ML INH 15 MG INHALATION (10:55)
[2023-01-12 11:00] LABS: NT Pro B Type Natriuretic Pept 141 pg/mL (19.9-100)
[2023-01-12] MEDS: LACTATED RINGERS 1,000 ML 999 ML IV CONT (11:12)
[2023-01-12 11:38] LABS: Lactic Acid Reflex 1.5 mmol/L (0.7-2.0)
--- NOTE | 2023-01-12 12:09 | ED.SOB ---
HPI - SOB/Dyspnea General Chief Complaint: Shortness of Breath/Dyspnea Stated Complaint: sob Time Seen by Provider: 01/12/23 09:59 History of Present Illness HPI Narrative: Patient with history of COPD presenting with cough and difficulty breathing for a week, he had been seen by his doctor and started on antibiotics, however he is still feeling short of breath. Some mild chest tightness. No lower extremity swelling or pain. Related Data Home Medications Medication Instructions Recorded Confirmed aspirin 81 mg tablet,delayed 81 mg PO QAM 10/30/20 12/05/22 release (Adult Low Dose Aspirin) clopidogrel 75 mg tablet 75 mg PO DAILY 10/26/22 12/05/22 cholecalciferol (vitamin D3) 25 25 mcg PO DAILY 12/05/22 12/05/22 mcg (1,000 unit) capsule hydrochlorothiazide 25 mg tablet 25 mg PO DAILY 12/05/22 12/05/22 Allergies Allergy/AdvReac Type Severity Reaction Status Date / Time morphine Allergy Severe Unknown Verified 12/05/22 13:57 Penicillins Allergy Unknown Unknown Verified 12/05/22 13:57 Review of Systems Review of Systems: CONST: No fever. HEENT: No sore throat C/V: No chest pain RESP: Cough, shortness of breath GI: No abdominal pain : No dysuria. M/S: No joint pain. SKIN: No rash. NEURO: [No headache or focal numbness or weakness] PSYCH: [No depression] [facility] Past Medical History Medical History (Updated 01/12/23 @ 12:12 by Colleen Valle MD) RONY (acute kidney injury) Bradycardia Chronic back pain Cirrhosis Coughing Dizziness Hair loss Hepatitis C Treated [id number] High cholesterol History of DVT (deep vein thrombosis) Patient denies any history of DVT or being on any anticoagulation Hypertension NSVT (nonsustained ventricular tachycardia) Olecranon bursitis of left elbow Pneumonia Sepsis SOB (shortness of breath) ST elevation (STEMI) myocardial infarction Stroke Wears glasses Weight gain Wheezing Family History Family History Mother Diabetes mellitus Heart disease Hypertension Father Diabetes mellitus Heart disease Kidney disorder Hypertension Sibling Cerebrovascular accident Other High cholesterol Social History Social History Smoking packs per day: 1 Smoking cigarettes per day: 20.0 Years smoked: 53 Smoking pack-years: 53.00 Smoking status: Current every day smoker Tobacco type: cigarettes Second hand tobacco smoke exposure: Yes (girlfriend also smokes he is currently active smoker 0.5 pkg/day) Alcohol intake: never Drinks per week: 1 Substance use: never Substance use type: does not use Last use: 2007 Lack of Transportation: No Lack of Food: Never True Current Housing: I Have Housing Concerned About Future Housing: No Difficulty Paying Gas/Electric Bills: No Difficulty Paying for Meds: No Currently Unemployed: No Living arrangements: alone Occupation/Education: retired Gender identity (if verbalized by the patient): Male Sexual Orientation (if Verbalized by the Patient): Straight or Heterosexual Spiritual care concerns: No Agree to blood products: Yes Exam Narrative: EXAMINATION OF ORGAN SYSTEMS/BODY AREAS: Constitutional: Vital signs per nursing GENERAL:Dyspneic HEAD: Normal with no signs of head trauma. EYES: EOMI, conjunctiva normal ENT: Hearing grossly intact LUNGS: Coarse lung sounds with diffuse wheezing bilaterally HEART: [Regular rate and rhythm] ABD: [Soft], [nontender to palpation] EXT: Normal range of motion, no swelling or tenderness SKIN: [No rashes or lesions.] NEURO: [Alert and oriented x 3. No gross focal sensory or strength deficits.] PSYCH: Normal affect Course Vital Signs Vital signs: Vital Signs Temperature 96.9 F L 01/12/23 09:39 Pulse Rate 113 H 01/12/23 09:39 Respiratory Rate 24 H 01/12/23 09:39 Blood Pressure 185/83 H 01/12/23 09:39 Pulse
[2023-01-12 12:24] VITALS: BP 144/86; PULSE 74; RESP 16; O2SAT 98
== END 2023-01-12 12:25 | disposition home or self-care (01) ==
PROVIDERS: Emergency Provider Emergency Medicine; PCP Family Medicine Adolescent Medicine
DX: J44.1 Chronic obstructive pulmonary disease with (acute) exacerbation (principal); I10 Essential (primary) hypertension; Z86.718 Personal history of other venous thrombosis and embolism; I25.2 Old myocardial infarction; F17.210 Nicotine dependence, cigarettes, uncomplicated
CPT/HCPCS: 36415; 71046; 80053; 83605; 83880; 85025; 87040; 93005; 94640; 96360; 99284; J7120

== ENCOUNTER 2023-01-18 09:06 | Outpatient (CLI) | payer OTHER, SELFPAY ==
--- NOTE | ~2023-01-18 | US_ITS ---
US arterial ankle brachial ind INDICATION: Leg pain TECHNIQUE: Segmental pressures and plethysmographic and Doppler waveforms of the brachial and lower e xtremity arteries were obtained. COMPARISON: None. FINDINGS: Right and left brachial artery pressures of 190 mm Hg and 175 mm Hg, respectively, are concordant (no rmal difference <= 30 mmHg). The right ankle-brachial index (SURY) is 1.03 (normal >= 0.9-1.0). The right great toe-brachial index (TBI) is 0.57 (normal >= 0.60). The left SURY is 0.87. The left TBI is 0.54. IMPRESSION: 1. Mildly decreased left ankle brachial index and bilateral toe brachial indices, consistent with mil d peripheral arterial disease. Reviewed, dictated and finalized at location A. IMPRESSION: 1. Mildly decreased left ankle brachial index and bilateral toe brachial indice s, consistent with mild peripheral arterial disease.
== END 2023-01-18 09:07 | disposition home or self-care (01) ==
PROVIDERS: PCP Family Medicine Adolescent Medicine; Visit Provider Nurse Practitioner Family
DX: M79.604 Pain in right leg (principal); R93.89 Abnormal findings on diagnostic imaging of other specified body structures
CPT/HCPCS: 93922

== ENCOUNTER 2023-01-30 12:42 | Outpatient (CLI) | payer OTHER, SELFPAY ==
--- NOTE | ~2023-01-30 | XR_ITS ---
AP and lateral views of the right hip Clinical history: Pain Findings: No acute fracture or dislocation is seen. Osseous alignment is anatomic. Bilateral hip and SI joint spaces are preserved. Soft tissues are unremarkable. Impression: No significant abnormality is seen. Reviewed, dictated and finalized at location . Impression: No significant abnormality is seen.
== END 2023-01-30 12:43 | disposition home or self-care (01) ==
LOC: ANHIMG 12:45
PROVIDERS: PCP Family Medicine Adolescent Medicine; Visit Provider Nurse Practitioner Family
DX: M25.551 Pain in right hip (principal)
CPT/HCPCS: 73502

== ENCOUNTER 2023-09-14 09:00 | Outpatient (CLI) | payer OTHER, SELFPAY ==
--- NOTE | 2023-09-28 11:15 | WPDSLEEPSTUD ---
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 The patient frequently awakens from sleep short of breath. He frequently awakens at night with heartburn, belching or cough. He frequently snores and is frequently loud enough that others complain. He frequently has trouble sleeping when he has a cold. He frequently wakes up gasping for air throughout the night. He frequently has breathing problems at night observed by himself or others. He frequently sweats excessively at night. He frequently has heart palpitations or irregular heartbeats during the night. He frequently falls asleep during the day but never while driving. He frequently experiences loss of muscle tone when extremely emotional. He denies having trouble at school or work due to sleepiness. He denies feeling unable to move while waking up or falling asleep. He frequently experiences vivid dreamlike scenes upon awakening or falling asleep. He denies feeling afraid of going to sleep. He frequently has nightmares and frequently remembers his dreams. He frequently has thoughts racing through his mind. He denies feeling sad or depressed. He occasionally has anxiety. He frequently has muscular tension. He frequently notices parts of his body jerk. He frequently kicks during the night. He frequently has crawling and aching feelings in his legs and frequently has leg pain during the night. He denies grinding his teeth during sleep and denies awakening with morning jaw pain. He is frequently bothered by pain during the day and frequently awakened by pain during the night. He occasionally wakes up feeling stiff in the morning. He occasionally wakes up with sore or achy muscles. He occasionally wakes up with pain in the neck, spine and other joints. He goes to bed between 9-10 p.m. on weekdays and at 1:00 a.m. on the weekends. It takes him 2 hours to fall asleep. He wakes up once throughout the night to urinate and watch TV and he is unable to fall back asleep. He wakes up between 6-8 a.m. on both weekdays and weekends. He typically gets 6 hours of sleep per night. He does not stay in bed after waking up in the morning. He currently lives alone. He denies consuming any caffeinated beverages within 2 hours of bedtime. He denies engaging in physical exercise before bedtime. He will watch television before falling asleep. He will take naps in the afternoon but they are not refreshing. He consumes 2 cups of caffeinated beverage per day. He currently smokes 1 pack of cigarettes per day. He denies tobacco and recreational drug use. [facility] Past Medical History Medical History RONY (acute kidney injury) Bradycardia Chronic back pain Cirrhosis Coughing Dizziness Hair loss Hepatitis C Treated [id number] High cholesterol History of DVT (deep vein thrombosis) Patient denies any history of DVT or being on any anticoagulation Hypertension NSVT (nonsustained ventricular tachycardia) Olecranon bursitis of left elbow Pneumonia Sepsis SOB (shortness of breath) ST elevation (STEMI) myocardial infarction Stroke Wears glasses Weight gain Wheezing Family History Family History Mother Diabetes mellitus Heart disease Hypertension Father Diabetes mellitus Heart disease Kidney disorder Hypertension Sibling Cerebrovascular accident O
[2023-09-28 11:29] VITALS: BMI 34.2
== END 2023-09-15 06:55 | disposition home or self-care (01) ==
LOC: ANHCSM 09:01
PROVIDERS: PCP Family Medicine Adolescent Medicine; Visit Provider Nurse Practitioner Adult Health
DX: G47.33 Obstructive sleep apnea (adult) (pediatric) (principal); R40.0 Somnolence
CPT/HCPCS: 95811

== ENCOUNTER 2023-12-06 12:29 | Outpatient (CLI) | payer OTHER, SELFPAY ==
--- NOTE | ~2023-12-06 | CT_ITS ---
CT Scan of the Chest without Contrast: Clinical Indication: Lung cancer screening,, current smoker Technique: Contiguous sections were acquired throughout the chest without intravenous contrast. Dose reduction technique was used on this scan by utilizing automated exposure control and iterative recon struction technique. The dose-length product (DLP) was 229.33 mGy-cm. COMPARISON: 09/19/2021 Findings: There is no evidence of any significant mediastinal, hilar or axillary lymphadenopathy. Extensive cor onary artery calcifications are present. There is no evidence of pleural or pericardial effusion. The lungs are clear. No pulmonary nodules or infiltrates are noted. Images through the upper abdomen reveal no abnormalities. Impression: Lung RADS 1: Negative. 12 month follow-up screening CT advised. Reviewed, dictated and finalized at location . Impression: Lung RADS 1: Negative. 12 month follow-up screening CT advised.
== END 2023-12-06 12:30 | disposition home or self-care (01) ==
LOC: ANHIMG 12:30
PROVIDERS: PCP Family Medicine Adolescent Medicine; Visit Provider Physician Assistant
DX: Z12.2 Encounter for screening for malignant neoplasm of respiratory organs (principal); Z87.891 Personal history of nicotine dependence
CPT/HCPCS: 71271

== ENCOUNTER 2024-04-22 14:48 | Outpatient (CLI) | payer OTHER, SELFPAY ==
--- NOTE | ~2024-04-22 | US_ITS ---
Abdominal Sonogram: Real-time sonographic imaging of the abdomen was performed. Clinical History: Abdominal pain Findings: The liver appears echogenic, with no evidence of mass lesion or bile duct dilatation. Main portal vein demonstrates normal direction of flow. The spleen is normal in size without evidence of focal lesion. The gallbladder is well distended, and appears normal with no evidence of gallstone or wall thickening. The common bile duct measures 3 mm. The visualized pancreas, aorta, and IVC are un remarkable. The right kidney measures 10.6 cm in length and the left kidney measures 11.1 cm. There is no hydronephrosis or renal calculus. Impression: Diffuse fatty infiltration of the liver. Reviewed, dictated and finalized at location M. Impression: Diffuse fatty infiltration of the liver.
== END 2024-04-22 14:49 | disposition home or self-care (01) ==
LOC: ANHIMG 14:49
PROVIDERS: PCP Family Medicine Adolescent Medicine; Visit Provider Family Medicine Adolescent Medicine
DX: R10.11 Right upper quadrant pain (principal); K76.0 Fatty (change of) liver, not elsewhere classified
CPT/HCPCS: 76700

== ENCOUNTER 2024-10-30 15:08 | Outpatient (CLI) | payer OTHER, SELFPAY ==
--- OUTSIDE RECORDS SUMMARY | 2024-10-30 15:12 | XMS_ITS | Continuity of Care Document ---
Author Organization [facility] Address [address] [place] [address] Phone Care Team Providers Care Solar Electric Installer Name Role Phone Haseeb Bryson Unavailable Unavailable Procedures Procedure Date Post-op Follow-up Visit Post-op Follow-up Visit Remove Cataract, Insert Lens Office/outpatient Visit, [facility] Advance Directives Directive Yes / No Effective Date File Name No Information Encounters Encounter Description Practice Location Reason(s) For Visit Diagnoses Date Provider Providers Copied on Encounter [facility], [address] [place] [address] [address], [place], [place], [id number], tel:[phone] [facility] No Information 0 Braydon Membreno. [address] , [address], [place], [place], [facility] [place], . tel:[phone] [facility], [address] [place] [address] [address], [place], [place], [id number], [place] tel:[phone] [facility] No Information 0 Braydon Membreno. [address] , [address], [place], [place], [facility] [place], . tel:[phone] [facility], [address] [place] [address] [address], [place], [place], [id number], [place] tel:[phone] [facility] No Information 0 Braydon Membreno. [address] , [address], [place], [address], [place]. tel:[phone] Referring Provider: Carlos Manuel Fernandez, [address] [place] [address] [address], [place], [address]. tel:[phone] Office/outpat ient Visit, [facility], [address], [place], [place], [id number], [place] tel:[phone] [facility] No Information 0 Gioantoinette Haseeb. [facility] , [address], [place], [address], [place]. tel:[phone] Referring Provider: Carlos Manuel Fernandez, [address] [place] [address] [address], [place], [address]. tel:[phone] Family History Family Member Type Diagnosis Age At Onset No Information Payers Payer name Insurance type Covered constitution party ID Authoriza tion(s) No Information Social History Type Description Quantity Date Captured Comments Sex Male Smoking Status No Information Chief Complaint And Reason For Visit No Information Reason For Referral Reason For Referral No Information History Of Present Illness Encounter Date Complaint History Of Prese nt Illness No Information Functional Status Date Functional Assessmen t No Information Instructions Date Instruction Additional Infor mation No Information Assessments Type Assessment Date No Information Patient Care Teams Name Effective Dates (start - stop) Status Members No Information
--- OUTSIDE RECORDS SUMMARY | 2024-10-30 15:12 | XMS_ITS | Clinical Summary ---
Author Organization [facility] Address [address] [place] [address] Phone Care Team Providers Care Rn Advice Name Role Phone Rodolfo Hood MD Primary Care Provider [phone] Allergies Active Allergy Reactions Criticality Noted Date Comments Morphine Unknown 05/19/2021 Penicillins 02/06/2018 Other reaction(s): Unknown Pt not sure. Family hx Medications Aspirin Buf,CaCarb-MgCar b-MgO, 81 MG tablet Take 81 mg by mouth daily Active fenofibrate (TRICOR) 145 MG tablet 01/07/2020 Active HYDROcodone-acet aminophen (NORCO) 5-325 MG per tablet 12/16/2019 Active metoprolol tartrate (LOPRESSOR) 100 MG tablet 01/07/2020 Active gabapentin (NEURONTIN) 300 MG capsule 06/16/2020 Active nitroglycerin (NITROSTAT) 0.[address] 0.4 mg under the tongue Active nicotine (NICODERM CQ) 14 MG/24HR Place 1 patch on the skin 1 (one) time each day at the same time 08/23/2021 Active olmesartan (BENICAR) 40 MG tablet Take 40 mg by mouth daily 08/23/2021 Active atorvastatin (LIPITOR) 40 MG tablet Take 40 mg by mouth daily Active albuterol HFA (PROVENTIL HFA) 108 (90 Base) MCG/ACT inhaler Inhale 2 puffs 4 times daily 09/20/2021 Active budesonide-formo terol (Symbicort) 160-4.5 MCG/ACT inhaler Inhale 2 puffs 2 times daily 10/07/2021 Active hydroCHLOROthiaz bal (HYDRODIURIL) 25 MG tablet Take 1 tablet (25 mg total) by mouth 1 (one) time each day 30 tablet 11 03/02/2022 Active Active Problems Problem Noted Date Diagnosed Date Disorder of coronary artery 05/19/2021 Tobacco user 05/19/2021 Coronary atherosclerosis 05/19/2021 Stage 3a chronic kidney disease 09/04/2020 Cirrhosis of liver 08/22/2019 Hypertensive disorder 08/22/2019 Chronic viral hepatitis C 02/06/2018 Overview (01/23/2020): Genotype 1 04/03/18 Fibroscan CAP 400, E 20.1 kPa Immunizations Immunization Administration Dates Next Due Influenza TIV (IM) 08/25/2021(Deferred: Patient Refused) Family History Medical History Relation Comments Kidney disease Father Relation Status Comments Father Social History Tobacco Use Types Packs/Day Years Used Date Smoking Tobacco: Light Smoker Smokeless Tobacco: Never Alcohol Use Standard Drinks/Week Comments Yes 0 (1 standard drink = 0.6 oz pur e alcohol) rare Sex and Gender Information Value Date Recorded Sex Assigned at Not on file Legal Sex Male 10:45 AM MDT Gender Identity Not on file Sexual Orientation Not on file Last Filed Vital Signs Vital Sign Reading Time Taken Comments Blood Pressure 122/70 03/02/2022 1:56 PM CDT Pulse 72 03/02/2022 1:56 PM CDT Temperature 37.7 C (99.8 F) 03/02/2022 1:56 PM CDT Respiratory Rate - - Oxygen Saturation - - Inhaled Oxygen Concentration - - Weight 109 kg (240 lb) 03/02/2022 1:56 PM CDT Height 188 cm (6' 2 ) 03/02/2022 1:56 PM CDT Body Mass Index 30.81 03/02/2022 1:56 PM CDT Plan of Treatment Health Maintenance Due Date Last Done Comments Influenza Vaccine (Season Ended) 2025 Insurance [employer] Care Teams Rn Advice Relationship Specialty Start Date End Date Rodolfo Hood MD [phone] [phone] PCP - General Family Medicine 12/19/19
--- OUTSIDE RECORDS SUMMARY | 2024-10-30 15:12 | XMS_ITS | Referral Summary ---
Author Organization [facility] Address [address] [place] [id number] Care Team Providers Care Office Administrator Name Role Phone Rodolfo Stewart MD Primary Care Prov ider Encounters Date Type Department Care Team Description 08/05/2024 11:15 AM STRUCTURER Office Visit [facility] Cardiology [address] [place] [address] Kallie Coffey MD STEMI involving left anterior descending coronary artery (HCC) (Primary Dx); Coronary artery disease of [place] artery of [place] heart with stable angina pectoris; Mixed hyperlipidemia; Essential hypertension; Dyspnea on exertion; Stage 3b chronic kidney disease (HCC); XAVIER (obstructive sleep apnea); Tobacco abuse from Last 3 Months Allergies Active Allergy Reactions Criticality Noted Date Comments Morphine Other (See comments) High 05/19/2021 Per pt his brother had anaphylaxis to morphine Penicillins Unknown 05/19/2021 In childhood Medications HYDROcodone-acetami nophen (NORCO) 5-325 mg per tablet Take 1 tablet by mouth every 4 (four) hours as needed (chronic neck pain and headaches) Active amLODIPine (NORVASC) 5 mg tablet Take 1 tablet (5 mg total) by mouth daily 021 Active fenofibrate nanocrystallized (TRICOR) 145 mg tablet fenofibrate nanocrystallized 145 mg tablet 020 Active albuterol HFA (PROVENTIL HFA,VENTOLIN HFA,PROAIR HFA) 90 mcg/actuation inhaler Inhale 2 puffs 4 (four) times a day 2 puffs inhalation 4 times a day as needed 03/28/2 022 Active Symbicort 160-4.5 mcg/actuation inhaler Inhale 2 puffs 2 (two) times a day Active Incruse Ellipta 62.5 mcg/actuation blister with device Active albuterol 2.5 mg /3 mL (0.083 %) nebulizer solution Active indapamide (LOZOL) 1.25 mg tablet Take 2 tablets (2.5 mg total) by mouth every morning Active aspirin 81 mg enteric coated tablet Take 1 tablet (81 mg total) by mouth daily 30 tablet 11 024 Active valsartan (DIOVAN) 320 mg tablet Take 1 tablet (320 mg total) by mouth daily Active mecobalamin (B12 ACTIVE ORAL) Take by mouth Act antwan carBAMazepine XR (TEGretol XR) 200 mg 12 hr tablet Take 1 tablet (200 mg total) by mouth 2 (two) times a day Activ e cholecalciferol (VITAMIN D-3) 2000 unit tablet Take 1 tablet (2,000 Units total) by mouth daily Active nitroglycerin (NITROSTAT) 0.[address] 1 tablet (0.4 mg total) under the tongue every 5 (five) minutes as needed for chest pain 25 tablet 11 025 Active dicyclomine (BENTYL) 20 mg tablet Take 1 tablet (20 mg total) by mouth 3 (three) times a day 025 Active atorvastatin (LIPITOR) 40 mg tablet TAKE 1 TABLET(40 MG) BY MOUTH DAILY 90 tablet 3 025 Active clopidogreL (PLAVIX) 75 mg tabletIndications:C oronary artery disease of mi[place] artery with stable angina pectoris,STEMI involving left anterior descending coronary artery (HCC) TAKE 1 TABLET(75 MG) BY MOUTH DAILY 90 tablet 2 025 Active Active Problems Problem Noted Date Diagnosed Date XAVIER (obstructive sleep apnea) 05/11/2024 Acute respiratory failure with hypoxia Stage 3b chronic kidney disease 05/10/2024 COPD exacerbation 05/09/2024 Hyperlipidemia 07/11/2022 Essential hypertension 08/23/2021 Dry cough 08/23/2021 Coronary artery disease of n ative artery with stable angina pectoris 05/19/2021 STEMI involving left anterior descending coronar y artery 05/19/2021 Dyspnea on exertion 05/19/2021 Tobacco abuse 05/19/2021 Resolved Problems Problem Noted Date Diagnosed Date Resolved Date Lipid screening 05/19/2021 08/05/2024 Social History Tobacco Use Types Packs/Day Years Used Date Smoking Tobacco: Every Day Cigarettes Smokeless Tobacco: Never Tobacco Cessation:Ready to Q uit: Not Asked; Counseling Given: Not Answered [facility] Utilities Answer Date Recorded In the past 12 months has [employer], [employer], oil, or water [employer] threatened to shut off services in your home? No 05/10/2024 Social Connection and Isolat ion Panel [NHANES] Answer Date Recorded In a typical week, how many times do you talk on the phone with family, friends, or neighbors? More than three times a week 05/10/2024 How often do you get togethe r with friends or relatives? More than three times a week 05/10/2024 How often do you attend [facility] or moravian services? Never 05/10/2024 Do you belong to any clubs o r organizations such as worship groups, unions, fraternal or athletic groups, or school groups? No 05/10/2024 How often do you attend meet ings of the clubs or organizations you belong to? Never 05/10/2024 Are you , , di vorced, , never , or living with a partner? Never 05/10/2024 AUDIT-C Answer Date Recorded Q1: How often do you have a drink containing alcohol? Never 08/16/2023 Q2: How many drinks containi ng alcohol do you have on a typical day when you are drinking? Patient does not drink Q3: How often do you have si x or more drinks on one occasion? Never 08/16/2023 Overall Financial Resource Strain (CARDIA) Answe r Date Recorded How hard is it for you to pa y for the very basics like food, housing, medical care, and heating? Not very hard 05/10/2024 Hunger Vital Sign Answer Date Recorded Within the past 12 months, y ou worried that your food would run out before you got the money to buy more. Never true 05/10/20 Within the past 12 months, t he food you bought just didn't last and you didn't have money to get more. Never true 05/10/2024 PRAPARE - Transportation Answer Date Re corded In the past 12 months, has l ack of transportation kept you from medical appointments or from getting medications? No 04/26 In the past 12 months, has l ack of transportation kept you from meetings, work, or from getting things needed for daily living? No 05/10/2024 Housing Stability Vital Sign Answer Jase e Recorded In the last 12 months, was t here a time when you were not able to pay the mortgage or rent on time? No 05/10/2024 In the past 12 months, how m any times have you moved where you were living? 0 05/10/2024 At any time in the past 12 m [facility], were you homeless or living in a jail (including now)? No 05/10/2024 Personal Safety Answer Date Recorded Have you ever been in or are you currently in a harmful physical or emotional relationship or is someone making you feel afraid or unsafe? 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 file Not on file Not o n file Last Filed Vital Signs Vital Sign Reading Time Taken Comments Blood Pressure 138/84 08/05/2024 11:08 AM STRUCTURER Pulse 86 08/05/2024 11:08 AM STRUCTURER Temperature 36 C (96.8 F) 05/11/2024 7:57 AM STRUCTURER Respiratory Rate 18 05/11/2024 7:57 AM STRUCTURER Oxygen Saturation 95% 08/05/2024 11:08 AM STRUCTURER Inhaled Oxygen Concentration - - Weight 117.5 kg (259 lb) 08/05/2024 11:08 AM STRUCTURER Height 188 cm (6' 2 ) 08/05/2024 11:08 AM STRUCTURER Body Mass Index 33.25 08/05/2024 11:08 AM STRUCTURER Plan of Treatment Not on file Medical Devices Implanted Type Area Boat Driver Device Identifier Shelf Expiration Date Model / Serial / Lot Medtronic Card Vasc Surgery 2.50 X 26mm Too [place] Rx Coronary Stent [id number] - [id number] Implanted:Qty: 1 on 08/16/2023 by Kallie Coffey MD at [facility] Medtronic Card Vasc Surgery 11/03/2025 [id number] / / [id number] Re[employer] SurgicalEZDOCTOR [facility] Angio-Seal Vip 6fr Closere Device [id number] - [id number] Implanted:Qty: 1 on 08/16/2023 by Kallie Coffey MD at [facility] [employer] SurgicalEZ[employer] [facility] 03/26/2024 [id number] / / Procedures Procedure Name Priority Date/Time Associated Diagnosis Comments POCT LIPID PANEL Routine 08/05/2024 12:0 6 PM STRUCTURER Mixed hyperlipidemia from Last 3 Months Results * POCT lipid panel (08/05/2024 12:06 PM STRUCTURER) Cholesterol, POC 170 mg/dL Comment:GLU = 123 HDL, POC 23 mg/dL Triglycerides, POC 299 mg/dL LDL Cholesterol POC 87 mg/dL Chol/HDL Ratio, POC 3.8 Non-HDL Cholesterol, POC 147 mg/dL Cholesterol Total, POC 170 mg/dL Capillary blood 08/05/2024 1 2:06 PM STRUCTURER Kallie Coffey MD POINT OF CARE TEST O RDERABLES Final Result from Last 3 Months Insurance [facility] Advance Directives For more information, please contact: [phone] * Full Code (Latest Code Status on File) Date Activated Date Inactivated Comments 05/09/2024 9:38 PM 05/11/2024 6:36 PM * Full Code Date Activated Date Inactivated Comments 05/09/2024 7:39 PM 05/09/2024 9:38 PM * Full Code Date Activated Date Inactivated Comments 08/16/2023 1:02 PM 08/16/2023 7:31 PM Care Teams Office Administrator Relationship Specialty Start Date End Date Rodolfo Stewart MD [address] [place] [address] PCP - General Family Medicine 08/31/20
--- OUTSIDE RECORDS SUMMARY | 2024-10-30 15:12 | XMS_ITS | Clinical Summary ---
Author Organization [facility] Address [address] [place] [id number] Care Team Providers Care Automatic Print Developer Name Role Phone Rodolfo Stewart MD Primary Care Prov ider Allergies Active Allergy Reactions Criticality Noted Date [...] inhalation 4 times a day as needed 022 Active Symbicort 160-4.5 mcg/actuation inhaler Inhale 2 puffs 2 (two) times a day 022 Active Incruse Ellipta 62.5 mcg/actuation blister with device 023 Active albuterol 2.5 mg /3 mL (0.083 %) nebulizer solution 023 Active indapamide (LOZOL) 1.25 mg tablet Take 2 tablets (2.5 mg total) by mouth every morning Active aspirin 81 mg enteric coated tablet Take 1 tablet (81 mg total) by mouth daily 30 tablet 11 024 Active valsartan (DIOVAN) 320 mg tablet Take 1 tablet (320 mg total) by mouth daily 024 Active mecobalamin (B12 ACTIVE ORAL) Take by [...] 75 mg tabletIndications:C oronary artery disease of si[place] artery with stable angina pectoris,STEMI involving left anterior descending coronary artery (HCC) TAKE 1 TABLET(75 MG) BY MOUTH DAILY 90 tablet 2 025 Active Active Problems Problem Noted Date Diagnosed Date XAVIER (obstructive sleep apnea) 05/11/2024 Acute respiratory failure with hypoxia 4 Stage 3b chronic kidney disease 05/10/2024 COPD exacerbation 05/09/2024 Hyperlipidemia 07/11/2022 Essential hypertension 08/23/2021 Dry cough 08/23/2021 Coronary artery disease of n ative artery with stable angina pectoris 05/19/2021 STEMI involving left anterior descending coronar y artery 05/19/2021 Dyspnea on exertion 05/19/2021 Tobacco abuse 05/19/2021 Resolved Problems Problem Noted Date Diagnosed Date Resolved Date Lipid screening 05/19/2021 08/05/2024 Encounters Date Type Department Care Team Description 08/05/2024 11:15 AM WAYBILL CLERK Office Visit [facility] Cardiology [address] [facility] [address] [place] [address] Kallie Coffey MD STEMI involving left anterior descending coronary artery (HCC) (Primary Dx); Coronary artery disease of sioux artery of sioux heart with stable angina pectoris; Mixed hyperlipidemia; Essential hypertension; Dyspnea on exertion; Stage 3b chronic kidney disease (HCC); XAVIER (obstructive sleep apnea); Tobacco abuse from Last 3 Months Surgical History Surgery Date Site/Laterality Comments CARDIAC STENT PLACEMENT CATARACT EXTRACTION CYST REMOVAL Medical History Medical History Date Comments Hypertension Heart attack (HCC) High cholesterol Pneumonia Stroke (HCC) Renal failure CAD (coronary artery disease) COPD (chronic obstructive pulmonary disease) (HC C) XAVIER (obstructive sleep apnea) 05/11/2024 Family History Medical History Relation Name Comments Diabetes Mother Heart disease Mother Breast cancer Sister Relation Name Status Comments Mother (Age 75) Sister (Age 49) Social History Tobacco Use Types Packs/Day Years Used Date Smoking Tobacco: Every Day Cigarettes Smokeless Tobacco: Never Tobacco Cessation:Ready to Q uit: Not Asked; Counseling Given: Not Answered [facility] Minderest Answer Date Recorded In the past 12 months has [employer], gas, oil, or water [employer] threatened to shut off services in your [...] week 05/10/2024 How often do you attend chur ch or mormonism services? Never 05/10/2024 Do you belong to any clubs o r organizations such as presybeterian groups, unions, fraternal or athletic groups, or [...] money to buy more. Never true 05/10/20 24 Within the past 12 months, t he [...] any time in the past 12 m [facility], were you homeless or living in a jail (including now)? No 05/10/2024 Personal Safety Answer Date Recorded Have you ever been in or are you currently in a harmful physical or emotional relationship or is someone making you feel afraid or unsafe? 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 file Not on file Not o n file Obstetrics History Last Filed Vital Signs Vital Sign Reading Time Taken Comments Blood Pressure 138/84 08/05/2024 11:08 AM WAYBILL CLERK Pulse 86 08/05/2024 11:08 AM WAYBILL CLERK Temperature 36 C (96.8 F) 05/11/2024 7:57 AM WAYBILL CLERK Respiratory Rate 18 05/11/2024 7:57 AM WAYBILL CLERK Oxygen Saturation 95% 08/05/2024 11:08 AM WAYBILL CLERK Inhaled Oxygen Concentration - - Weight 117.5 kg (259 lb) 08/05/2024 11:08 AM WAYBILL CLERK Height 188 cm (6' 2 ) 08/05/2024 11:08 AM WAYBILL CLERK Body Mass Index 33.25 08/05/2024 11:08 AM WAYBILL CLERK Plan of Treatment Health Maintenance Due Date Last Done Comments Colon Cancer Screening-Colonoscopy 1960 Depression Screening 1960 Hepatitis C Screening 1960 Prostate Cancer Screening-PSA 1960 DTaP/Tdap/Td Vaccine (1 - Tdap) 02/11/1971 Hepatitis B Screening 02/11/1978 Regular Well Visit/Exam 18-64 02/11/1978 Pneumococcal vaccine <65 (1 of 2 - PCV) 02/11/1979 Zoster Vaccine (1 of 2) 02/11/2010 Covid-19 Vaccine (3 - season) 02/25/202405/2021, 01/13/2021 Influenza Vaccine (Season Ended) 2025 Medical Devices Implanted Type Area Carpenters Supervisor Device Identifier Shelf Expiration Date Model / Serial / Lot [facility] Vas Surgery 2.50 X 26mm Too [place] Rx Coronary Stent [id number] - [id number] Implanted:Qty: 1 on 08/16/2023 by Kallie Coffey MD at [facility] Vas Surgery 11/03/2025 [id number] / / [id number] [facility] Angio-Seal Vip 6fr Closere Device [id number] - [id number] Implanted:Qty: 1 on 08/16/2023 by Kallie Coffey MD at [facility] [employer] [facility] 03/26/2024 [id number] / / Procedures Procedure Name Priority Date/Time Associated Diagnosis Comments POCT LIPID PANEL Routine 08/05/2024 12:0 6 PM WAYBILL CLERK Mixed hyperlipidemia from Last 3 Months Results * POCT lipid panel (08/05/2024 12:06 PM WAYBILL CLERK) Cholesterol, POC 170 mg/dL Comment:GLU = 123 HDL, POC 23 mg/dL Triglycerides, POC 299 mg/dL LDL Cholesterol POC 87 mg/dL Chol/HDL Ratio, POC 3.8 Non-HDL Cholesterol, POC 147 mg/dL Cholesterol Total, POC 170 mg/dL Capillary blood 08/05/2024 1 2:06 PM WAYBILL CLERK Kallie Coffey MD POINT OF CARE TEST O RDERABLES Final Result from Last 3 Months Insurance Advance Directives For more information, please contact: [phone] * Full Code (Latest Code Status on File) Date Activated Date Inactivated Comments 05/09/2024 9:38 PM 05/11/2024 6:36 PM * Full Code Date Activated Date Inactivated Comments 05/09/2024 7:39 PM 05/09/2024 9:38 PM * Full Code Date Activated Date Inactivated Comments 08/16/2023 1:02 PM 08/16/2023 7:31 PM Care Teams Automatic Print Developer Relationship Specialty Start Date End Date Rodolfo Stewart MD [address] [place] [address] PCP - General Family Medicine 08/31/20
[2024-10-30 15:56] LABS: Erythrocyte Sedimentation Rate 8 mm/hr (0-20)
[2024-10-30 17:31] LABS: CRP < 0.5 mg/dL (<1.0)
[2024-11-02 06:39] LABS: Immunoglobulin A 73 mg/dL (70-320); TTG IGA AB <1.0 U/mL
== END 2024-10-30 15:09 | disposition home or self-care (01) ==
LOC: ANHLAB 15:09
PROVIDERS: PCP Family Medicine Adolescent Medicine; Visit Provider Nurse Practitioner
DX: R19.7 Diarrhea, unspecified (principal); R19.4 Change in bowel habit
CPT/HCPCS: 36415; 82784; 84443; 85652; 86140; 86364

== ENCOUNTER 2024-12-09 12:44 | Outpatient (CLI) | payer OTHER, SELFPAY ==
--- NOTE | ~2024-12-09 | CT_ITS ---
CT Scan of the Chest without Contrast: Clinical Indication: Lung cancer screening, nicotine dependence Technique: Contiguous sections were acquired throughout the chest without intravenous contrast. Dose reduction technique was used on this scan by utilizing automated exposure control and iterative recon struction technique. The dose-length product (DLP) was 211.58 mGy-cm. Comparison 12/06/2023 Findings: There is no evidence of any significant mediastinal, hilar or axillary lymphadenopathy. Coronary jeanne ry calcifications are present. There is no evidence of pleural or pericardial effusion. Stable 3 mm right apical pulmonary nodule. Stable fissural nodules along the left fissure. Images through the upper abdomen reveal no abnormalities. Impression: Lung RADS 2: Benign appearance. 12 month follow-up screening CT advised. Reviewed, dictated and finalized at [facility]. Impression: Lung RADS 2: Benign appearance. 12 month follow-up screening CT advised.
--- OUTSIDE RECORDS SUMMARY | 2024-12-09 13:35 | XMS_ITS | Referral Summary ---
Author Organization [facility] Address [address] [place] [phone] Care Team Providers Care Automobile Upholsterer Name Role Phone Rodolfo Stewart MD Primary [...] 75 mg tabletIndications:C oronary artery disease of [place] artery with stable angina pectoris,STEMI involving left [...] uit: Not Asked; Counseling Given: Not Answered [facility] Utilities Answer Date Recorded In the past 12 months has th e [employer], [employer], [employer], or water [email or web address] threatened to shut off services in your [...] often do you attend chur ch or taoism services? Never 05/10/2024 Do you belong to any clubs o r organizations such as caodaism groups, unions, fraternal or athletic groups, or [...] any time in the past 12 m [facility], were you homeless or living in a mcc (including now)? No 05/10/2024 Personal Safety Answer Date Recorded Have you ever been in or are you currently in a harmful physical or emotional relationship or is someone making you feel afraid or unsafe? 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 file Not on file Not o n file Last Filed Vital Signs Vital Sign Reading Time Taken Comments Blood Pressure 138/84 08/05/2024 11:08 AM DATA CONTROL CLERK Pulse 86 08/05/2024 11:08 AM DATA CONTROL CLERK Temperature 36 C (96.8 F) 05/11/2024 7:57 AM DATA CONTROL CLERK Respiratory Rate 18 05/11/2024 7:57 AM DATA CONTROL CLERK Oxygen Saturation 95% 08/05/2024 11:08 AM DATA CONTROL CLERK Inhaled Oxygen Concentration - - Weight 117.5 kg (259 lb) 08/05/2024 11:08 AM DATA CONTROL CLERK Height 188 cm (6' 2) 08/05/2024 11:08 AM DATA CONTROL CLERK Body Mass Index 33.25 08/05/2024 11:08 AM DATA CONTROL CLERK Plan of Treatment Not on file Medical Devices Implanted Type Area Wood Fence Installer Device Identifier Shelf Expiration Date Model / Serial / Lot Medtronic Card Vasc Surgery 2.50 X 26mm [place] [employer] Rx Coronary Stent [id number] - [id number] Implanted:Qty: 1 on 08/16/2023 [facility] 11/03/2025 [id number] / / [id number] [employer] Angio-Seal Vip 6fr Closere Device [id number] - [id number] Implanted:Qty: 1 on 08/16/2023 by Kallie Coffey MD at [facility] [employer] 03/26/2024 [id number] / / Insurance Advance Directives For more information, please contact: [phone] * Full Code (Latest Code Status on File) Date Activated Date Inactivated Comments 05/09/2024 9:38 PM 05/11/2024 6:36 PM * Full Code Date Activated Date Inactivated Comments 05/09/2024 7:39 PM 05/09/2024 9:38 PM * Full Code Date Activated Date Inactivated Comments 08/16/2023 1:02 PM 08/16/2023 7:31 PM Care Teams Automobile Upholsterer Relationship Specialty Start Date End Date Rodolfo Stewart MD [address] [place] [address] PCP - General Family Medicine 08/31/20
--- OUTSIDE RECORDS SUMMARY | 2024-12-09 13:35 | XMS_ITS | Clinical Summary ---
Author Organization [facility] Address [address] [place] [phone] Care Team Providers Care Trap Operator Name Role Phone Rodolfo Stewart MD Primary [...] 75 mg tabletIndications:C oronary artery disease of [place] artery with stable angina pectoris,STEMI involving left [...] Date Resolved Date Lipid screening 05/19/2021 08/05/2024 Surgical History Surgery Date Site/Laterality Comments CARDIAC [...] uit: Not Asked; Counseling Given: Not Answered [facility] Utilities Answer Date Recorded In the past 12 months has [employer], gas, oil, or water company threatened to shut off services in your [...] often do you attend chur ch or hindu services? Never 05/10/2024 Do you belong to any clubs o r organizations such as islam groups, unions, fraternal or athletic groups, or [...] you are drinking? Patient does not drink 4 Q3: How often do you have si [...] any time in the past 12 m [facility], were you homeless or living in a mcc (including now)? No 05/10/2024 Personal Safety Answer Date Recorded Have you ever been in or are you currently in a harmful physical or emotional relationship or is someone making you feel afraid or unsafe? 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 Not on file Not on file Not o n file Obstetrics History Last Filed Vital Signs Vital Sign Reading Time Taken Comments Blood Pressure 138/84 08/05/2024 11:08 AM TRUANT OFFICER Pulse 86 08/05/2024 11:08 AM TRUANT OFFICER Temperature 36 C (96.8 F) 05/11/2024 7:57 AM TRUANT OFFICER Respiratory Rate 18 05/11/2024 7:57 AM TRUANT OFFICER Oxygen Saturation 95% 08/05/2024 11:08 AM TRUANT OFFICER Inhaled Oxygen Concentration - - Weight 117.5 kg (259 lb) 08/05/2024 11:08 AM TRUANT OFFICER Height 188 cm (6' 2) 08/05/2024 11:08 AM TRUANT OFFICER Body Mass Index 33.25 08/05/2024 11:08 AM TRUANT OFFICER Plan of Treatment Health Maintenance Due Date [...] Ended) 2025 Medical Devices Implanted Type Area Burlap Worker Device Identifier Shelf Expiration Date Model / Serial / Lot [facility] Surgery 2.50 X 26mm [place] Rx Coronary Stent [id number] - [id number] Implanted:Qty: 1 on 08/16/2023 by Kallie Coffey MD at [facility] Surgery 11/03/2025 [id number] / / [id number] [facility] Angio-Seal Vip 6fr Closere Device [id number] - [id number] Implanted:Qty: 1 on 08/16/2023 by Kallie Coffey MD at [facility] [employer] 03/26/2024 [id number] / / [place] [address] [address] Advance Directives For more information, please contact: [phone] * Full Code (Latest Code Status on File) Date Activated Date Inactivated Comments 05/09/2024 9:38 PM 05/11/2024 6:36 PM * Full Code Date Activated Date Inactivated Comments 05/09/2024 7:39 PM 05/09/2024 9:38 PM * Full Code Date Activated Date Inactivated Comments 08/16/2023 1:02 PM 08/16/2023 7:31 PM Care Teams Trap Operator Relationship Specialty Start Date End Date Rodolfo Stewart MD [address] [place] [id number] PCP - General Family Medicine 08/31/20
--- OUTSIDE RECORDS SUMMARY | 2024-12-09 13:35 | XMS_ITS | Continuity of Care Document ---
Author Organization [facility] Address [address] [place] [address] Phone Care Team Providers Care Director Of Cloud Services Name Role Phone Haseeb Bryson Unavailable Unavailable Procedures Procedure Date Post-op Follow-up Visit Post-op Follow-up Visit Remove Cataract, Insert Lens Office/outpatient Visit, [facility] Advance Directives Directive Yes / No Effective Date File Name No Information Encounters Encounter Description Practice Location Reason(s) For Visit Diagnoses Date Provider Providers Copied on Encounter [facility], [address] [place] [address] [address], [place], [place], [id number], tel:[phone] [facility] No Information 0 Braydon Membreno. [address] , [address], [place], [place], [facility], . tel:[phone] [facility], [address] [place] [address] [address], [place], [place], [id number], [place] tel:[phone] [facility] No Information 0 Braydon Membreno. [address] , [address], [place], [place], [facility], . tel:[phone] [facility], [address] [place] [address] [address], [place], [place], [id number], [place] tel:[phone] [facility] No Information 6 0 Braydon Membreno. [address] , [address], [place], [address], [place]. tel:[phone] Referring Provider: Carlos Manuel Fernandez, [address] [place] [address] [address], [place], [address]. tel:[phone] Office/outpat ient Visit, [facility], [address], [place], [place], [id number], [place] tel:[phone] [facility] No Information 0 Gioantoinette Haseeb. [facility] , [address], [place], [address], [place]. tel:[phone] Referring Provider: Carlos Manuel Fernandez, [address] [place] [address] [address], [place], [address]. tel:[phone] Family History Family Member Type Diagnosis Age At Onset No Information Payers Payer name Insurance type Covered republican ID Authoriza tion(s) No Information Social History [...]
--- OUTSIDE RECORDS SUMMARY | 2024-12-09 13:35 | XMS_ITS | Clinical Summary ---
Author Organization [facility] Address [address] [place] [address] Phone Care Team Providers Care Manager Club Name Role Phone Rodolfo Hood MD Primary Care Provider [phone] Allergies Active Allergy Reactions Criticality Noted Date [...] 1:56 PM CDT Height 188 cm (6' 2) 03/02/2022 1:56 PM CDT Body Mass Index 30.81 03/02/2022 1:56 PM CDT Plan of Treatment Health Maintenance Due Date Last Done Comments Influenza Vaccine (Season Ended) 2025 Insurance [employer] Care Teams Manager Club Relationship Specialty Start Date End Date Rodolfo Hood MD [address] [address] PCP - General Family Medicine 12/19/19
== END 2024-12-09 12:45 | disposition home or self-care (01) ==
LOC: ANHIMG 12:46
PROVIDERS: PCP Family Medicine Adolescent Medicine; Visit Provider Physician Assistant
DX: Z12.2 Encounter for screening for malignant neoplasm of respiratory organs (principal); Z87.891 Personal history of nicotine dependence
CPT/HCPCS: 71271

== ENCOUNTER 2025-01-28 15:58 | Outpatient (CLI) | payer MEDICARE, MEDICAID, SELFPAY ==
--- NOTE | ~2025-01-28 | US_ITS ---
Renal-Bladder ultrasound Clinical History: Abdominal pain Technique: Real-time sonographic imaging of the kidneys and urinary bladder was performed. Findings: The right kidney measures 10.2 cm in length and the left kidney measures 11.1 cm. There is no hydronephrosis or renal calculus identified. Renal cortical echogenicity is within normal limits. No renal mass lesion is identified. Minimal right perinephric fluid noted. The urinary bladder is partially distended at the time of this exam. No intraluminal echoes are ident ified. No abnormal wall thickening is seen. Impression: Minimal right perinephric fluid, otherwise unremarkable exam. Reviewed, dictated and finalized at location M. Impression: Minimal right perinephric fluid, otherwise unremarkable exam.
--- OUTSIDE RECORDS SUMMARY | 2025-01-28 16:02 | XMS_ITS | Clinical Summary ---
Author Organization [facility] Address [address] [place] [address] Care Team Providers Care Scheduling Administrator Name Role Phone Rodolfo Stewart MD Primary Care Provider + Source Comments [facility],non-owned Affiliates and Associated Physician Practices is amultiple site organization consisting of ambulatory clinics and hospital sitesin [place], [place], [place] and [place]. This disclosure is being madepursuant to the Care Everywhere program and may not contain all informatio navailable regarding this patient. Last updated 18.[facility] Allergies Active Allergy Reactions Criticality Noted Date Comments Morphine Anaphylaxis High 11/25/2022 Penicillins Unknown 02/06/2018 Pt not sure. Family hx Medications * Be aware that medications may not be up to date on this document. Alwaysverify current medications with the patient. fenofibrate (TRICOR) 145 MG tablet Take 1 (one) tablet by mouth once daily Active aspirin (ASPIRIN) 81 MG tablet Take 1 (one) tablet by mouth once daily Active HYDROcodone-kapil taminophen (NORCO) 5-325 MG tablet Take 1 (one) tablet by mouth every 4 hours as needed for Pain Active albuterol HFA (PROVENTIL; VENTOLIN; PROAIR) 108 (90 Base) MCG/ACT inhaler INHALE 2 PUFFS BY MOUTH FOUR TIMES DAILY NEEDED FOR SHORTNESS OF BREATH 2 Active nitroGLYCERIN (NITROSTAT) 0.4 MG tablet Dissolve 1 (one) tablet under the tongue Active atorvastatin (LIPITOR) 40 MG tablet Take 1 (one) tablet by mouth once daily Active Symbicort 160-4.5 MCG/ACT inhaler Inhale 2 (two) puffs by mouth once daily as needed 2 Active clopidogrel (plaVIX) 75 MG tablet 3 Active hydroCHLOROthia zide (Hydrodiuril) 25 MG tablet 3 Active valsartan-hydro CHLOROthiazide (Diovan HCT) 160-25 MG tablet 3 Active Vitamin D, Cholecalciferol , 25 MCG (1000 UT) CAPS Take 1 (one) capsule by mouth once daily Active Active Problems Problem Noted Date Diagnosed Date Cirrhosis of liver without ascites 11/25/2022 Dyslipidemia 07/11/2022 11/25/2022 Essential hypertension 08/23/2021 3 Disorder of coronary artery 05/19/2021 0607/2022 Dyspnea on exertion 05/19/2021 11/25/2022 STEMI involving left anterior descending coronar y artery 05/19/2021 11/25/2022 Tobacco user 05/19/2021 11/25/2022 Stage 3a chronic kidney disease 09/04/2020 Chronic viral hepatitis C 02/06/2018 Overview (06/12/2020): Genotype 1 04/03/18 Fibroscan CAP 400, E 20.1 kPa Genotype 1 04/03/18 Fibroscan CAP 400, E 20.1 kPa Family History Medical History Relation Name Comments Hepatitis Father Relation Name Status Comments Father Social History Tobacco Use Types Packs/Day Years Used Date Smoking Tobacco: Every Day Cigarettes 1 40 Smokeless Tobacco: Never Tobacco Cessation:Ready to Q uit: Not Asked; Counseling Given: Not Answered Alcohol Use Standard Drinks/Week Comments Not Currently 1 (1 standard drink = 0.6 oz pur e alcohol) rare use currently Sex and Gender Information Value Date Recorded Sex Assigned at Not on file Legal Sex Male 3:45 PM CDT Gender Identity Not on file Sexual Orientation Not on file Last Filed Vital Signs Vital Sign Reading Time Taken Comments Blood Pressure 149/84 11/25/2022 11:09 AM CDT Pulse 96 11/25/2022 11:09 AM CDT Temperature 36.6 C (97.9 F) 11/25/2022 11:09 AM CDT Respiratory Rate 19 06/12/2020 10:23 AM FUEL SYSTEM MAINTENANCE WORKER Oxygen Saturation 96% 11/25/2022 11:09 AM CDT Inhaled Oxygen Concentration - - Weight 118.4 kg (261 lb) 11/25/2022 11:09 AM CDT Height 188 cm (6' 2) 11/25/2022 11:09 AM CDT Body Mass Index 33.51 11/25/2022 11:09 AM CDT Plan of Treatment Health Maintenance Due Date Last Done Comments COLOGUARD (AGES 45-75) - COLON CA SCREENING 1960 COLON MONITORING 1960 COLONOSCOPY - COLON CA SCREENING 1960 CT COLONOGRAPHY - COLON CA SCREENING 1960 Colorectal Cancer Screening 1960 FIT - COLON CA SCREENING 1960 FLEX SIG - COLON CA SCREENING 1960 HIV SCREENING 02/11/1975 DTAP/TDAP/TD VACCINES (1 - Tdap) 02/11/1979 PNEUMOCOCCAL VACCINE 50+ (1 of 2 - PCV) 02/11/1979 LUNG CANCER SCREENING 02/11/2010 ZOSTER VACCINE (1 of 2) 02/11/2010 HEPATITIS B VACCINE (1 of 3 - Risk 3-dose series) 2020 Respiratory Syncytial Virus (RSV) Vaccine Pt: or over 60 yrs (1 - Risk 60-74 years 1-dose series) 2020 COVID-19 VACCINE (1 - season) 2024 DEPRESSION SCREENING 06/26/2024 INFLUENZA VACCINE (#1) 2025 SCREENING FOR DIABETES 11/15/2025 3, 12/03/2021, 12/04/2020, Additional history exists HEPATITIS C SCREENING Completed 11/25/2022 , 12/10/2021, 12/10/2021, Additional history exists HIB VACCINE Aged Out No longer eligi ble based on patient's age to complete this topic HPV VACCINE Aged Out No longer eligi ble based on patient's age to complete this topic MENINGOCOCCAL (Group B) VACCINE SHARED DECISION-MAKING Aged Out No longer eligible based on patient's age to complete this topic MENINGOCOCCAL GROUPS A/C/Y/W VACCINE Aged Out No longer eligible based on patient's age to complete this topic Goals Goal Patient Goal Type Associated Problems Recent Progress Patient-Stated? Author Medication Management General On track( 022 9:58 AM CDT) Tahmina Pena, RN Note: Expected end date: ongoing Interventions: Take all medications as prescribed Complete Hepatitis C therapy as prescribed Let your doctor know right away about any changes in your medications Make sure to request a refill of your medication at least one week prior to your last dose Procedures Procedure Name Priority Date/Time Associated Diagnosis Comments COMPREHENSIVE METABOLIC PANEL 11/15/2022 11:18 AM CDT HEPATITIS C RNA QUANTITATIVE 09/28/2018 8:46 AM CDT from Last 3 Months or Most Recently Relevant to Health Maintenance Results * (ABNORMAL) COMPREHENSIVE METABOLIC PANEL (11/15/2022 11:18 AM CDT) Glucose 137(H) 65 - 99 mg/dL [facility] Comment: Fasting reference interval For someone without known diabetes, a glucose value >125 mg/dL indicates that they may have diabetes and this should be confirmed with a follow-up test. BUN 25 7 - 25 mg/dL [facility] Creatinine 1.77(H) 0.70 - 1.35 mg/dL [facility] eGFR by Cystatin C 43(L) > OR = 60 mL/min/1. 73m2 [facility] Comment: The eGFR is based on the CKD-EPI 2020 equation. To calculate the new eGFR from a previous Creatinine or Cystatin C result, go to https://www.kidney.org/professionals/ kdoqi/gfr%5Fcalculator BUN/Creatinine Ratio 14 6 - 22 (calc) [facility] Sodium 139 135 - 146 mmol/L [facility] Potassium 3.9 3.5 - 5.3 mmol/L [facility] Chloride 107 98 - 110 mmol/L [facility] CO2 25 20 - 32 mmol/L [facility] Calcium 9.9 8.6 - 10.3 mg/dL [facility] Protein Total 7.3 6.1 - 8.1 g/dL [facility] Albumin 4.4 3.6 - 5.1 g/dL [facility] Globulin Total 2.9 1.9 - 3.7 g/dL (calc) [facility] Albumin/Globulin Ratio 1.5 1.0 - 2.5 (calc) [facility] Bilirubin Total 0.4 0.2 - 1.2 mg/dL [facility] Alkaline Phosphatase 54 35 - 144 U/L [facility] AST 30 10 - 35 U/L [facility] ALT 36 9 - 46 U/L [facility] Comment: Test Performed at: [facility] [address] KALPESH BUNCH MD 11/15/2022 11:1 8 AM CDT 11/15/2022 11:20 AM CDT Caty Crystal APRN-PHARMACY CARE COORDINATOR LAB - CHEMISTRY ORDE LUNA Final Result Performing Organization Address [facility] de Phone Number [address] [address] * HEPATITIS C RNA QUANTITATIVE (09/28/2018 8:46 AM CDT) Pathologist [facility] Hepatitis C Virus RNA, Quantitative Real Time PCR <15 NOT DETECTED NOT DETECTED IU/mL [facility] Hepatitis C Virus RNA, Quantitative Real Time PCR <1.18 NOT DETECTED NOT DETECTED Log IU/mL [facility] Comment: This test was performed using Real-Time Polymerase Chain Reaction. Reportable Range: 15 IU/mL to 100,000,000 IU/mL (1.18 Log IU/mL to 8.00 Log IU/mL). The analytical performance characteristics of this assay have been determined by [employer]. The modifications have not been cleared or approved by the FDA. This assay has been validated pursuant to the CLIA regulations and is used for clinical purposes. For more information on this test, go to: http://education.ShomoLive.Mic Network/faq/RQC64h0 (This link is being provided for informational/ educational purposes only.) REPORT COMMENT: PT VERIFIED THIS IS THE ONLY ORDER HES HERE FOR TODAY FASTING:NO Test Performed at: [facility] [address] [place] [address] ROBBY LOPEZ DO,MPH 09/28/2018 8:46 AM CDT 09/28/2018 8:46 AM CDT Caty Crystal APRN-PHARMACY CARE COORDINATOR LAB - CHEMISTRY ORDE LUNA Final Result Performing Organization Address [facility] de Phone Number [address] [address] from Last 3 Months or Most Recently Relevant to Health Maintenance Insurance Care Teams Scheduling Administrator Relationship Specialty Start Date End Date Rodolfo Stewart MD [address] [address] PCP - General Family Medicine 12/06/17
--- OUTSIDE RECORDS SUMMARY | 2025-01-28 16:02 | XMS_ITS | Clinical Summary ---
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 Utilities Answer Date Recorded In the past 12 months has th e electric, gas, oil, or water company threatened [...] often do you attend chur ch or yarsanism services? Never 05/10/2024 Do you belong to any clubs o r organizations such as restoration groups, unions, fraternal or athletic groups, or [...] any time in the past 12 m [facility], were you homeless or living in a [place] health care facility (including now)? No 05/10/2024 Personal Safety Answer Date Recorded Have you ever been in or are you currently in a harmful physical or emotional relationship or is someone making you feel afraid or unsafe? 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 Not on file Not on file Not o n file Obstetrics History Last Filed Vital Signs Vital Sign Reading Time Taken Comments Blood Pressure 138/84 08/05/2024 11:08 AM OUTSIDE RIGGER Pulse 86 08/05/2024 11:08 AM OUTSIDE RIGGER Temperature 36 C (96.8 F) 05/11/2024 7:57 AM OUTSIDE RIGGER Respiratory Rate 18 05/11/2024 7:57 AM OUTSIDE RIGGER Oxygen Saturation 95% 08/05/2024 11:08 AM OUTSIDE RIGGER Inhaled Oxygen Concentration - - Weight 117.5 kg (259 lb) 08/05/2024 11:08 AM OUTSIDE RIGGER Height 188 cm (6' 2) 08/05/2024 11:08 AM OUTSIDE RIGGER Body Mass Index 33.25 08/05/2024 11:08 AM OUTSIDE RIGGER Plan of Treatment Health Maintenance Due Date Last Done Comments Colon Cancer Screening-Colonoscopy 1960 Depression Screening 1960 Hepatitis C Screening 1960 Prostate Cancer Screening-PSA 1960 DTaP/Tdap/Td Vaccine (1 - Tdap) 02/11/1971 Hepatitis B Screening 02/11/1978 Regular Well Visit/Exam 18-64 02/11/1978 Pneumococcal vaccine <65 (1 of 2 - PCV) 02/11/1979 Zoster Vaccine (1 of 2) 02/11/2010 Covid-19 Vaccine (3 - 2023- season) 02/25/202405/2021, 01/13/2021 Influenza Vaccine (#1) 2025 Medical Devices Implanted Type Area Program Strategist Device Identifier Shelf Expiration Date Model / Serial / Lot Medtronic [facility] Vasc Surgery 2.50 X 26mm Too Boyd Rx Coronary Stent [id number] - [id number] Implanted:Qty: 1 on 08/16/2023 by Kallie Coffey MD at [facility] Vasc Surgery 11/03/2025 [id number] / / [id number] [facility] Access HospitalW. W. Norton & Company Angio-Seal Vip 6fr Closere Device [id number] - [id number] Implanted:Qty: 1 on 08/16/2023 by Kallie Coffey MD at [facility] [employer] 03/26/2024 [id number] / / Insurance [facility] Advance Directives For more information, please contact: [phone] * Full Code (Latest Code Status on File) Date Activated Date Inactivated Comments 05/09/2024 9:38 PM 05/11/2024 6:36 PM * Full Code Date Activated Date Inactivated Comments 05/09/2024 7:39 PM 05/09/2024 9:38 PM * Full Code Date Activated Date Inactivated Comments 08/16/2023 1:02 PM 08/16/2023 7:31 PM Care Teams Central Supply Technician Relationship Specialty Start Date End Date Rodolfo Stewart MD [address] [place] [address] PCP - General Family Medicine 08/31/20
--- OUTSIDE RECORDS SUMMARY | 2025-01-28 16:02 | XMS_ITS | Referral Summary ---
Author Organization [facility] Address [address] [place] [phone] Care Team Providers Care Leather Lacer Name Role Phone Rodolfo Stewart MD Primary [...] 75 mg tabletIndications:C oronary artery disease of [place] artery with stable angina pectoris,STEMI involving left [...] uit: Not Asked; Counseling Given: Not Answered [facility] Utilities Answer Date Recorded In the past 12 months has th e [employer], [employer], [employer], or water [employer] threatened to shut off services in your [...] often do you attend chur ch or zoroastrian services? Never 05/10/2024 Do you belong to any clubs o r organizations such as sabianist groups, unions, fraternal or athletic groups, or [...] any time in the past 12 m [facility], were you homeless or living in a [facility] (including now)? No 05/10/2024 Personal Safety Answer Date Recorded Have you ever been in or are you currently in a harmful physical or emotional relationship or is someone making you feel afraid or unsafe? 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 Not on file Not on file Not o n file Last Filed Vital Signs Vital Sign Reading Time Taken Comments Blood Pressure 138/84 08/05/2024 11:08 AM WIRE HANGER Pulse 86 08/05/2024 11:08 AM WIRE HANGER Temperature 36 C (96.8 F) 05/11/2024 7:57 AM WIRE HANGER Respiratory Rate 18 05/11/2024 7:57 AM WIRE HANGER Oxygen Saturation 95% 08/05/2024 11:08 AM WIRE HANGER Inhaled Oxygen Concentration - - Weight 117.5 kg (259 lb) 08/05/2024 11:08 AM WIRE HANGER Height 188 cm (6' 2) 08/05/2024 11:08 AM WIRE HANGER Body Mass Index 33.25 08/05/2024 11:08 AM WIRE HANGER Plan of Treatment Not on file Medical Devices Implanted Type Area Squadron Worker Device Identifier Shelf Expiration Date Model / Serial / Lot Medtronic Card Vasc Surgery 2.50 X 26mm Too [employer] Rx Coronary Stent [id number] - [id number] Implanted:Qty: 1 on 08/16/2023 [facility] 11/03/2025 [id number] / / [id number] [employer] Angio-Seal Vip 6fr Closere Device [id number] - [id number] Implanted:Qty: 1 on 08/16/2023 by Kallie Coffey MD at [facility] [place] [employer] 03/26/2024 [id number] / / Insurance Advance Directives For more information, please contact: [phone] * Full Code (Latest Code Status on File) Date Activated Date Inactivated Comments 05/09/2024 9:38 PM 05/11/2024 6:36 PM * Full Code Date Activated Date Inactivated Comments 05/09/2024 7:39 PM 05/09/2024 9:38 PM * Full Code Date Activated Date Inactivated Comments 08/16/2023 1:02 PM 08/16/2023 7:31 PM Care Teams Leather Lacer Relationship Specialty Start Date End Date Rodolfo Stewart MD [address] [place] [address] PCP - General Family Medicine 08/31/20
--- OUTSIDE RECORDS SUMMARY | 2025-01-28 16:02 | XMS_ITS | Clinical Summary ---
Author Organization [facility] Address [address] [place] [address] Phone Care Team Providers Care Graphic User Interface Designer Name Role Phone Rodolfo Hood MD Primary Care Provider +[phone] Allergies Active Allergy Reactions Criticality Noted Date [...] Due Date Last Done Comments Influenza Vaccine (#1) 2025 Insurance [employer] Care Teams Graphic User Interface Designer Relationship Specialty Start Date End Date Rodolfo Hood MD [address] [address] PCP - General Family Medicine 12/19/19
== END 2025-01-28 15:59 | disposition home or self-care (01) ==
PROVIDERS: PCP Family Medicine Adolescent Medicine; Visit Provider Internal Medicine Nephrology
DX: I12.9 Hypertensive chronic kidney disease with stage 1 through stage 4 chronic kidney disease, or unspecified chronic kidney disease (principal); R10.9 Unspecified abdominal pain
CPT/HCPCS: 76775

== ENCOUNTER 2025-02-06 23:42 | Emergency (ER) | payer MEDICARE, MEDICAID, SELFPAY ==
--- NOTE | ~2025-02-06 | CT_ITS ---
EXAMINATION: CT abdomen pelvis wo con DATE: 02/07/2025 05:10 INDICATION: Possible kidney stone TECHNIQUE: Computed tomography (CT) of the abdomen and pelvis was performed without intravenous contr ast. The dose-length product was 1117.37 mGy-cm. Automated exposure control and iterative reconstruct ion technique were employed. COMPARISON: CT dated 03/25/2019. FINDINGS: There is dependent atelectasis. Borderline heart size. There is atherosclerosis of the belem nary arteries. Mild atherosclerosis of the aorta without aneurysm. No lymphadenopathy. The liver, spleen, pancreas, adrenal glands and kidneys are unremarkable. There are renal arterial ca lcifications. No renal stones or hydronephrosis. No ureteral stones. Gallbladder is present. Nonobstr uctive bowel gas pattern. No abnormal pelvic masses or fluid collections. Mild lumbar spondylosis. No rmal appendix. No evidence for diverticulitis. IMPRESSION: 1. No acute abdominal abnormality. Reviewed, dictated and finalized at location A.
--- OUTSIDE RECORDS SUMMARY | 2025-02-06 23:43 | XMS_ITS | Clinical Summary ---
Author Organization [facility] Address [address] [place] [address] Phone Care Team Providers Care Video Arcade Manager Name Role Phone Rodolfo Hood MD Primary Care Provider +1 [phone] Allergies Active Allergy Reactions Criticality Noted Date [...] (#1) 2025 Insurance [employer] Care Teams Video Arcade Manager Relationship Specialty Start Date End Date Rodolfo Hood MD [address] [address] PCP - General Family Medicine 12/19/19
--- OUTSIDE RECORDS SUMMARY | 2025-02-06 23:43 | XMS_ITS | Clinical Summary ---
Author Organization [email or web address] Address [address] [place] [address] Care Team Providers Care Joint Maker Machine Name Role Phone Rodolfo Stewart MD Primary Care Provider + Source Comments [email or web address],non-owned Affiliates and Associated Physician Practices is amultiple site organization consisting of ambulatory clinics and hospital sitesin [place], [place], [place] and [place]. This disclosure is being madepursuant to the Care Everywhere program and may not contain all informatio navailable regarding this patient. Last updated 18.[email or web address] Allergies Active Allergy Reactions Criticality Noted Date [...] CDT Respiratory Rate 19 06/12/2020 10:23 AM FUR DRUMMER Oxygen Saturation 96% 11/25/2022 11:09 AM CDT [...] 46 U/L QUEST Comment: Test Performed at: [facility] [address] KALPESH BUNCH MD 11/15/2022 11:1 8 AM CDT 11/15/2022 11:20 AM CDT Caty Crystal APRN-TIME BUYER LAB - CHEMISTRY ORDE LUNA Final Result Performing Organization Address [facility] de Phone Number [address] [address] * HEPATITIS C RNA QUANTITATIVE (09/28/2018 8:46 AM CDT) Pathologist [facility] Hepatitis C Virus RNA, Quantitative Real Time [...] of this assay have been determined by comment.com. The modifications have not been cleared or approved by the FDA. This assay has been validated pursuant to the CLIA regulations and is used for clinical purposes. For more information on this test, go to: http://education.Planwise.Ar[employer]/faq/CQT69h8 (This link is being provided for informational/ educational purposes only.) REPORT COMMENT: PT VERIFIED THIS IS THE ONLY ORDER HES HERE FOR TODAY FASTING:NO Test Performed at: [facility] [address] [address] [place] [address] ROBBY LOPEZ DO,MPH 09/28/2018 8:46 AM CDT 09/28/2018 8:46 AM CDT Caty Crystal APRN-TIME BUYER LAB - CHEMISTRY ORDE LUNA Final Result Performing Organization Address [facility] de Phone Number [address] [address] from Last 3 Months or Most Recently Relevant to Health Maintenance Insurance Care Teams Joint Maker Machine Relationship Specialty Start Date End Date Rodolfo Stewart MD [address] [address] PCP - General Family Medicine 12/06/17
--- OUTSIDE RECORDS SUMMARY | 2025-02-06 23:43 | XMS_ITS | Clinical Summary ---
Author Organization [facility] Address [address] [place] [address] Care Team Providers Care Net Washer Name Role Phone Rodolfo Stewart MD Primary Care Prov ider Allergies Active Allergy Reactions Criticality Noted Date Comments Morphine Other (See comments) High 05/19/2021 Per pt his brother had anaphylaxis to morphine Penicillins Unknown 05/19/2021 In childhood Medications fenofibrate nanocrystallized (TRICOR) 145 mg tablet fenofibrate [...] mL (0.083 %) nebulizer solution 023 Active aspirin 81 mg enteric coated tablet [...] MOUTH DAILY 90 tablet 2 025 Active amLODIPine (NORVASC) 10 mg tablet Take 1 tablet (10 mg total) by mouth daily 025 Active HYDROcodone-acetami nophen (NORCO) 7.5-325 mg per tablet Take by mouth every 8 (eight) hours as needed 025 Active indapamide (LOZOL) 2.5 mg tablet Take 1 tablet (2.5 mg total) by mouth daily 025 Active HYDROcodone-acetami nophen (NORCO) 5-325 mg per tablet Take 1 tablet by mouth every 4 (four) hours as needed (chronic neck pain and headaches) 2024 Disconti nued(Alt ernate therapy) amLODIPine (NORVASC) 5 mg tablet Take 1 tablet (5 mg total) by mouth daily 021 2024 Disconti nued(Alt ernate therapy) indapamide (LOZOL) 1.25 mg tablet Take 2 tablets (2.5 mg total) by mouth every morning 2024 Disconti nued(Alt ernate therapy) Active Problems Problem Noted Date Diagnosed Date [...] Encounters Date Type Department Care Team Description 02/03/2025 10:45 AM CDT Office Visit [facility] Medical [facility] Cardiology [address] [place] [address] Kallie Coffey MD 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 No 05/10/2024 Social Connection and Isolation Panel Answer Date Recorded In a typical week, how many times do you talk on the phone with family, friends, or neighbors? More than three times a week 05/10/2024 How often do you get togethe r with friends or relatives? More than three times a week 05/10/2024 How often do you attend chur ch or evangelical services? Never 05/10/2024 Do you belong to any clubs o r organizations such as holiness groups, unions, fraternal or athletic groups, or [...] any time in the past 12 m [facility], were you homeless or living in a snf (including now)? No 05/10/2024 Personal Safety Answer Date Recorded Have you ever been in or are you currently in a harmful physical or emotional relationship or is someone making you feel afraid or unsafe? 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 Not on file Not on file Not o n file Obstetrics History Last Filed Vital Signs Vital Sign Reading Time Taken Comments Blood Pressure 130/80 02/03/2025 10:50 AM CDT Pulse 80 02/03/2025 10:50 AM CDT Temperature 36 C (96.8 F) 05/11/2024 7:57 AM BUSINESS OFFICE REPRESENTATIVE Respiratory Rate 18 05/11/2024 7:57 AM BUSINESS OFFICE REPRESENTATIVE Oxygen Saturation 95% 02/03/2025 10:50 AM CDT Inhaled Oxygen Concentration - - Weight 113.9 kg (251 lb) 02/03/2025 10:50 AM CDT Height 188 cm (6' 2) 02/03/2025 10:50 AM CDT Body Mass Index 32.23 02/03/2025 10:50 AM CDT Plan of Treatment Health Maintenance [...] (3 - season) 02/25/202405/2021, 01/13/2021 Influenza Vaccine (#1) 2025 Medical Devices Implanted Type Area Principal Hardware Architect Device Identifier Shelf Expiration Date Model / Serial / Lot Medtronic Card Vasc Surgery 2.50 X 26mm Too [place] Rx Coronary Stent [id number] - [id number] Implanted:Qty: 1 on 08/16/2023 by Kallie Coffey MD at [facility] Medtronic Card Vasc Surgery 11/03/2025 [id number] / / [id number] Angio-Seal Vip 6fr Closere Device [id number] - [id number] Implanted:Qty: 1 on 08/16/2023 by Kallie Coffey MD at [facility] [employer] 03/26/2024 [id number] / / Insurance [facility] OTHER Address: ATTN: CLAIMS DEPT [address] [place] [address] [facility] MEDICARE ADVANTAGE [facility] Address: [address] [address] [place] [address] [employer] Advance Directives For more information, please contact: [phone] * Full Code (Latest Code Status on File) Date Activated Date Inactivated Comments 05/09/2024 9:38 PM 05/11/2024 6:36 PM * Full Code Date Activated Date Inactivated Comments 05/09/2024 7:39 PM 05/09/2024 9:38 PM * Full Code Date Activated Date Inactivated Comments 08/16/2023 1:02 PM 08/16/2023 7:31 PM Care Teams Net Washer Relationship Specialty Start Date End Date Rodolfo Stewart MD [address] [place] [address] PCP - General Family Medicine 08/31/20
--- OUTSIDE RECORDS SUMMARY | 2025-02-06 23:43 | XMS_ITS | Continuity of Care Document ---
Author Organization [facility] Address [address] [place] [address] Phone Care Team Providers Care Metal Spinner Name Role Phone Haseeb Bryson Unavailable Unavailable Procedures Procedure Date Post-op Follow-up Visit Post-op Follow-up Visit Remove Cataract, Insert Lens Office/outpatient Visit, [facility] IOLMaster Advance Directives Directive Yes / No Effective Date File Name No Information Encounters Encounter Description Practice Location Reason(s) For Visit Diagnoses Date Provider Providers Copied on Encounter [facility], [address] [place] [address] [address], [place], [place], [id number], tel:[phone] [facility] No Information 0 Braydon Membreno. [address] , [address], [place], [place], [facility], . tel:[phone] [facility], [address] [place] [address] [address], [place], [place], [id number], [place] tel:[phone] [facility] No Information 0 Braydon Membreno. [address] , [address], [place], [place], [facility], . tel:[phone] [facility], [address] [place] [address] [address], [place], [place], [id number], [place] tel:[phone] [facility] No Information 6 0 Braydon Membreno. [address] , [address], [place], [address], [place]. tel:[phone] Referring Provider: Carlos Manuel Fernandez, [address] [place] [address] [address], [place], [address]. tel:[phone] Office/outpat ient Visit, [facility], [address], [place], [place], [id number], [place] tel:[phone] [facility] No Information 0 Gioantoinette Haseeb. [facility] , [address], [place], [address], [place]. tel:[phone] Referring Provider: Carlos Manuel Fernandez, [address] [place] [address] [address], [place], [address]. tel:[phone] Family History Family Member Type Diagnosis Age At Onset No Information Payers Payer name Insurance type Covered libertarian ID Authoriza tion(s) No Information Social History [...]
[2025-02-06 23:50] VITALS: BP 140/68; PULSE 74; RESP 20; TEMP 36.4; O2SAT 96
[2025-02-07] VITALS (8 sets, daily range): BP systolic 129–165; BP diastolic 61–94; PULSE 61; RESP 16; TEMP 36.4; O2SAT 93–100
--- OUTSIDE RECORDS SUMMARY | 2025-02-07 00:54 | XMS_ITS | Clinical Summary ---
Author Organization [email or web address] Address [address] [place] [address] Care Team Providers Care Ticket Machine Operator Name Role Phone Rodolfo Stewart MD Primary Care Provider + Source Comments [email or web address],non-owned Affiliates and Associated Physician Practices is amultiple site organization consisting of ambulatory clinics and hospital sitesin [place], [place], [place] and [place]. This disclosure is being madepursuant to the Care Everywhere program and may not contain all informatio navailable regarding this patient. Last updated 18.[email or web address] Allergies Active Allergy Reactions Criticality Noted Date [...] CDT Respiratory Rate 19 06/12/2020 10:23 AM POST HOLE DIGGER Oxygen Saturation 96% 11/25/2022 11:09 AM CDT [...] 46 U/L QUEST Comment: Test Performed at: [facility] [address] KALPESH BUNCH MD 11/15/2022 11:1 8 AM CDT 11/15/2022 11:20 AM CDT Caty Crystal APRN-SOLIDWORKS MECHANICAL DESIGNER LAB - CHEMISTRY ORDE LUNA Final Result Performing Organization Address [facility] de Phone Number [address] [address] * HEPATITIS C RNA QUANTITATIVE (09/28/2018 8:46 AM CDT) Pathologist [facility] Hepatitis C Virus RNA, Quantitative Real Time [...] of this assay have been determined by [employer]. The modifications have not been cleared or approved by the FDA. This assay has been validated pursuant to the CLIA regulations and is used for clinical purposes. For more information on this test, go to: http://education.Linio.Buddha Software/faq/LPF84h8 (This link is being provided for informational/ educational purposes only.) REPORT COMMENT: PT VERIFIED THIS IS THE ONLY ORDER HES HERE FOR TODAY FASTING:NO Test Performed at: [facility] [address] [place] [address] ROBBY LOPEZ DO,MPH 09/28/2018 8:46 AM CDT 09/28/2018 8:46 AM CDT Caty Crystal APRN-SOLIDWORKS MECHANICAL DESIGNER LAB - CHEMISTRY ORDE LUNA Final Result Performing Organization Address [facility] de Phone Number [address] [address] from Last 3 Months or Most Recently Relevant to Health Maintenance Insurance Care Teams Ticket Machine Operator Relationship Specialty Start Date End Date Rodolfo Stewart MD [address] [address] PCP - General Family Medicine 12/06/17
--- OUTSIDE RECORDS SUMMARY | 2025-02-07 00:55 | XMS_ITS | Clinical Summary ---
Author Organization [facility] Address [address] [place] [address] Phone Care Team Providers Care Manager Managing Name Role Phone Rodolfo Hood MD Primary Care Provider [phone] Allergies Active Allergy Reactions Criticality Noted Date [...] (#1) 2025 Insurance [employer] Care Teams Manager Managing Relationship Specialty Start Date End Date Rodolfo Hood MD [address] [address] PCP - General Family Medicine 12/19/19
--- OUTSIDE RECORDS SUMMARY | 2025-02-07 00:55 | XMS_ITS | Clinical Summary ---
Author Organization [facility] Address [address] [place] [address] Care Team Providers Care Cutting Table Operator First Name Role Phone Rodolfo Stewart MD Primary [...] 75 mg tabletIndications:C oronary artery disease of port lions artery with stable angina pectoris,STEMI involving left [...] Description 02/03/2025 10:45 AM CDT Office Visit [facility] Medical Group Cardiology [address] [place] [address] Kallie Coffey MD Coronary artery disease of port lions artery of port lions heart with stable angina pectoris (Primary Dx); [...] uit: Not Asked; Counseling Given: Not Answered [facility] Utilities Answer Date Recorded In the past 12 months has [employer], [employer], oil, or water [employer] threatened to shut off services in your [...] often do you attend chur ch or episcopal services? Never 05/10/2024 Do you belong to any clubs o r organizations such as mandaen groups, unions, fraternal or athletic groups, or [...] any time in the past 12 m [facility], were you homeless or living in a skilled nursing (including now)? No 05/10/2024 Personal Safety Answer Date Recorded Have you ever been in or are you currently in a harmful physical or emotional relationship or is someone making you feel afraid or unsafe? 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 Not on file Not on file Not o n file Obstetrics History Last Filed Vital Signs Vital Sign Reading Time Taken Comments Blood Pressure 130/80 02/03/2025 10:50 AM CDT Pulse 80 02/03/2025 10:50 AM CDT Temperature 36 C (96.8 F) 05/11/2024 7:57 AM XEROX MACHINE OPERATOR Respiratory Rate 18 05/11/2024 7:57 AM XEROX MACHINE OPERATOR Oxygen Saturation 95% 02/03/2025 10:50 AM CDT [...] (#1) 2025 Medical Devices Implanted Type Area Hardwood Floor Finisher Device Identifier Shelf Expiration Date Model / Serial / Lot Medtronic Card Vasc Surgery 2.50 X 26mm Too [place] Rx Coronary Stent [id number] - [id number] Implanted:Qty: 1 on 08/16/2023 by Kallie Coffey MD at [facility] Medtronic Card Vasc Surgery 11/03/2025 [id number] / / [id number] Angio-Seal Vip 6fr Closere Device [id number] - [id number] Implanted:Qty: 1 on 08/16/2023 by Kallie Coffey MD at [facility] [employer] 03/26/2024 [id number] / / Insurance [facility] OTHER Address: ATTN: CLAIMS DEPT [address] [place] [address] [facility] MEDICARE ADVANTAGE [employer] Advance Directives For more information, please contact: [phone] * Full Code (Latest Code Status on File) Date Activated Date Inactivated Comments 05/09/2024 9:38 PM 05/11/2024 6:36 PM * Full Code Date Activated Date Inactivated Comments 05/09/2024 7:39 PM 05/09/2024 9:38 PM * Full Code Date Activated Date Inactivated Comments 08/16/2023 1:02 PM 08/16/2023 7:31 PM Care Teams Cutting Table Operator First Relationship Specialty Start Date End Date Rodolfo Stewart MD [address] [place] [address] PCP - General Family Medicine 08/31/20
--- OUTSIDE RECORDS SUMMARY | 2025-02-07 00:55 | XMS_ITS | Continuity of Care Document ---
Author Organization [facility] Address [address] [place] [address] Phone Care Team Providers Care Boat Worker Name Role Phone Haseeb Brsyon Unavailable Unavailable Procedures Procedure Date Post-op Follow-up Visit Post-op Follow-up Visit Remove Cataract, Insert Lens Office/outpatient Visit, [facility] IOLMaster Advance Directives Directive Yes / No Effective Date File Name No Information Encounters Encounter Description Practice Location Reason(s) For Visit Diagnoses Date Provider Providers Copied on Encounter [facility], [address] [place] [address] [address], [place], [place], [id number], tel:[phone] [facility] No Information 0 Braydon Membreno. [address] , [address], [place], [place], [facility], . tel:[phone] [facility], [address] [place] [address] [address], [place], [place], [id number], [place] tel:[phone] [facility] No Information 0 Braydon Membreno. [address] [facility] [address] , [address], [place], [place], [facility], . tel:[phone] [facility], [address] [place] [address] [address], [place], [place], [address], [place] tel:[phone] [facility] No Information 6 0 Braydon Membreno. [address] , [address], [place], [address], [place]. tel:[phone] Referring Provider: Carlos Manuel Fernandez, [address] [place] [address] [address], [place], [address]. tel:[phone] Office/outpat ient Visit, [facility], [address], [place], [place], [id number], [place] tel:[phone] [facility] No Information 0 Gioantoinette Haseeb. [facility] [facility] , [address], [place], [address], [place]. tel:[phone] Referring Provider: Carlos Manuel Fernandez, [address] [place] [address] [address], [place], [address]. tel:[phone] Family History Family Member Type Diagnosis Age [...]
[2025-02-07] MEDS: HYDROmorphone HCL INJ (*CRX) 1 MG/ML SYR (04:06)
[2025-02-07] MEDS: ONDANSETRON INJ 4 MG/2 ML VIAL IV PUSH (04:07)
[2025-02-07 05:38] LABS: Alanine Aminotransferase 32 U/L (6-50); Albumin Level 4.6 g/dL (3.5-5.1); Alkaline Phosphatase 65 U/L (38-126); Anion Gap 12 mmol/L (4-12); Aspartate Amino Transferase 43 U/L (17-59); Bilirubin,Total 0.4 mg/dL (0.2-1.3); Blood Urea Nitrogen 39 mg/dL (9-20); Calcium 9.9 mg/dL (8.4-10.2); Carbon Dioxide 22 mmol/L (22-30); Chloride 107 mmol/L (98-107); Estimated CRCL calculation 31 ml/min; Estimated Glomerular Filt Rate 25; Glucose 107 mg/dL (65-110); Lipase 61 U/L (23-300); Potassium 3.9 mmol/L (3.4-5.0); Sodium 141 mmol/L (137-145); Total Protein 7.8 g/dL (6.3-8.2)
--- NOTE | 2025-02-07 05:39 | ED.MALEGU ---
HPI - Male Genitourinary General Chief complaint: Urogenital-Male Stated complaint: flank pain Time Seen by Provider: 02/07/25 04:52 History of Present Illness HPI Narrative: This encounter was done during EMR down time, please see the down time paperwork and scanned in paper chart and nursing notes/order sheet for complete document of patient's care. 64-year-old male presenting with 2 months of right flank pain. States that he was diagnosed with fluid around his kidney recently. States his pain is not controlled with his home [place]. Denies any fever, chills, dysuria, injury. Denies any falls or traumatic injuries. No systemic fever or other symptoms. No dysuria or difficulty in the restroom. Was otherwise in his normal state of health. Sees a coater associate Dr. Mendez. Related Data Home Medications ?Medication ?Instructions ?Recorded ?Confirmed ?Last Taken ?Type clopidogrel 75 mg tablet 75 mg PO DAILY 10/26/22 01/06/25 Unknown History cholecalciferol (vitamin D3) 25 25 mcg PO DAILY 12/05/22 01/06/25 Unknown History mcg (1,000 unit) capsule aspirin 81 mg chewable tablet 81 mg PO DAILY 02/20/24 01/06/25 Unknown History (Mirta Chewable Low Dose Aspirin) Allergies Allergy/AdvReac Type Severity Reaction Status Date / Time morphine Allergy Severe Unknown Verified 02/06/25 23:54 Penicillins Allergy Unknown Unknown Verified 02/06/25 23:54 Review of Systems Review of Systems: As reviewed above in HPI [facility] Past Medical History Medical History BMI 33.0-33.9,adult Vitamin B12 deficiency Peripheral neuropathy RONY (acute kidney injury) Sepsis Pneumonia NSVT (nonsustained ventricular tachycardia) Bradycardia Chronic back pain Cirrhosis Hepatitis C Treated [id number] ST elevation (STEMI) myocardial infarction Hair loss Hypertension High cholesterol Coughing Wheezing SOB (shortness of breath) Wears glasses Dizziness Stroke Weight gain History of DVT (deep vein thrombosis) Patient denies any history of DVT or being on any anticoagulation Olecranon bursitis of left elbow Family History Family History Mother Diabetes mellitus Heart disease Hypertension Father Diabetes mellitus Heart disease Kidney disorder Hypertension Sibling Cerebrovascular accident Other High cholesterol Social History Social History Smoking packs per day: 0.50 Smoking cigarettes per day: 10.0 Years smoked: 53 Smoking pack-years: 26.50 Smoking status: Current every day smoker Tobacco type: cigarettes Second hand tobacco smoke exposure: Yes (girlfriend also smokes he is currently active smoker 0.5 pkg/day) Alcohol intake: former Drinks per week: 1 Substance use: former Substance use type: does not use Last use: 2008 Do You Feel Safe in your Home?: Yes Lack of Transportation: No Lack of Food: Never True Current Housing: I Have Housing Concerned About Future Housing: No Difficulty Paying Gas/Electric Bills: No Difficulty Paying for Meds: No Currently Unemployed: YES Education: Grade School Difficulty w/ Childcare or Family Care: No Living arrangements: alone Occupation/Education: retired 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 Mucous membranes moist. NECK: Supple. CHEST: [Clear to auscultation. No respiratory distress.] HEART: [Regular rate and rhythm]. No murmur heard. [Normal peripheral pulses.] ABDOMEN: [Soft, nondistended], tender to palpation the right flank, [No rigidity or guarding] EXTREMITIES: Normal range of motion. [No edema.] SKIN: Warm, dry, no rash. NEURO: [No focal deficits]. Alert and oriented [x3.] PSYCH: [Normal mood and affect.] Course Vital Signs Vital signs: Vital Signs Temperature 36.4 C 02/06/25 23:50 Pulse Rate 74 02/06/25 23:50 Respiratory Rate 20 02/06/25 23:50 Blood Pressure 140/68 02/06/25 23:50 Pulse Oximetry 96 02/06/25 23:50 Temperature 36.4 C 02/06/25 23:50 Pulse Rate 74 02/06/25 23:50 Respiratory Rate 20 02/06/25 23:50 Blood Pressure 129/61 02/07/25 05:48 Pulse Oximetry 94 02/07/25 05:48 MDM - Male Genitourinary MDM Narrative Medical decision making narrative: This encounter was done during EMR down time, please see the down time paperwork and scanned in paper chart and nursing notes/order sheet for complete document of patient's care. 64-year-old male presenting with 2 months of right flank pain. States that he was diagnosed with fluid around his kidney recently. States his pain is not controlled with his home [place]. Denies any fever, chills, dysuria, injury. Denies any falls or traumatic injuries. No systemic fever or other symptoms. No dysuria or difficulty in the restroom. Was otherwise in his normal state of health. Sees a coater associate Dr. Mendez. Patient is hemodynamically stable without any tachycardia, fever, hypoxia blood pressure anomalies. Right flank pain on palpation of the abdomen but overall well-appearing not any distress. Patient given some Dilaudid for analgesia well CT scan without contrast obtained to rule out kidney stone or nephrolithiasis, hydronephrosis, pyelonephritis or urinary infection. Blood work and urinalysis obtained. Patient given a L of fluid and re-evaluated. CT scan shows no abnormalities. Laboratory studies are stable, mildly elevated creatinine from baseline consistent with his kidney disease history but he was given a fluid bolus here. Remains hemodynamically stable with normal vital signs. Safe for discharge home with regular follow-up outpatient. Medical Records Attestation: I reviewed the patient's medical records. Lab Data Attestation: I reviewed the patient's lab results. 02/07/25 03:20 02/07/25 03:20 Labs: Lab Results 02/07/25 Range/Units 03:20 WBC 7.5 (4.5-10.0) K/mm3 RBC 4.59 L (4.6-6.20) M/mm3 Hgb 14.4 (14.0-18.0) g/dL Hct 42.8 (42.0-52.0) % MCV 93.2 (80-100) fl MCH 31.4 (26-34) pg MCHC 33.6 (32-36) g/dl RDW 14.1 (11.5-14.5) % Plt Count 224 (150-375) k/mm3 MPV 10.5 H (7.4-10.4) fl Immature Gran % (Auto) 0.4 (0-0.5) % Neut % (Auto) 56.4 (45.5-73.1) % Lymph % (Auto) 31.6 (18.3-44.2) % [place] % (Auto) 9.4 H (2.6-8.5) % Eos % (Auto) 1.7 (0-4.4) % Baso % (Auto) 0.5 (0.2-1.2) % Lymph # (Auto) 2.38 (0.9-3.2) K/mm3 [place] # (Auto) 0.7 H (0.1-0.6) K/mm3 Eos # (Auto) 0.1 (0-0.3) K/mm3 Baso # (Auto) 0.0 (0.0-0.1) K/mm3 Abs Immat Gran (auto) 0.03 (0.00-0.031) K/mm3 Absolute Neuts (auto) 4.2 (1.3-6.7) K/mm3 Absolute Nucleated RBC 0.000 (0.0-0.012) K/mm3 Nucleated RBC % 0.0 (0.0-0.2) % Sodium 141 (137-145) mmol/L Potassium 3.9 (3.4-5.0) mmol/L Chloride 107 (98-107) mmol/L Carbon Dioxide 22 (22-30) mmol/L Anion Gap 12 (4-12) mmol/L BUN 39 H (9-20) mg/dL Creatinine 2.57 H (0.7-1.3) mg/dL Estim Creat Clear Calc 31 ml/min Estimated GFR 25 L (59 - ) Glucose 107 (65-110) mg/dL Calcium 9.9 (8.4-10.2) mg/dL Total Bilirubin 0.4 (0.2-1.3) mg/dL AST 43 (17-59) U/L ALT 32 (6-50) U/L Alkaline Phosphatase 65 (38-126) U/L Total Protein 7.8 (6.3-8.2) g/dL Albumin 4.6 (3.5-5.1) g/dL Lipase 61 (23-300) U/L Urine Color Dark yellow (Yellow) Urine Appearance Clear (Clear) Urine pH 5.0 (5.0-9.0) Ur Specific [place] 1.033 (1.001-1.035) Urine Protein 1+ H (Negative) mg/dL Urine Glucose (UA) Negative (Negative) mg/dL Urine Ketones Trace H (Negative) mg/dL Ur Blood (Man) Negative (Negative) Urine Nitrate Negative (Negative) Urine Bilirubin 1+ H (Negative) Urine Urobilinogen 1.0 (<2.0) mg/dL Leukocyte Esterase Rfl Negative (Negative) KOBE/UL Urine RBC 0-2 (0-2) /hpf Urine WBC 6-10 H (0-3) /hpf Ur Squamous Epith Cells Occasional (Few) /hpf Urine Bacteria None seen /hpf Urine Casts 11-20 Imaging Data Attestation: I personally reviewed and interpreted this imaging study as follows: My impression: Impressions Abdomen/Pelvis CT 02/07/25 06:44 IMPRESSION: 1. No acute abdominal abnormality. Discharge Plan Discharge Clinical Impression: Right flank pain Patient Disposition: Home Condition: Stable Instructions: Antibiotic Form Additional Instructions: Follow-up with Dr. Mendez on outpatient basis. We did hydrate you as you did have some mild dehydration but no signs of infection, no acute kidney injuries, no fluid around the kidney on the CT scan. Return with any emergent concerns. Patient Language: American Prescriptions: No Action amlodipine 10 mg tablet 10 mg PO DAILY Qty: 90 3RF clopidogrel 75 mg tablet 75 mg PO DAILY cholecalciferol (vitamin D3) 25 mcg (1,000 unit) capsule 25 mcg PO DAILY (DME) nebulizer and compressor [SmartNeb Compressor Nebulizer] Device See Rx Instructions .Route Qty: 1 0RF Rx Instructions: As directed (DME) nebulizers [Altera Nebulizer Handset] Misc See Rx Instructions .Route Qty: 1 0RF Rx Instructions: As directed aspirin [Mirta Chewable Aspirin] 81 mg tablet,chewable 81 mg PO DAILY albuterol sulfate 2.5 mg /3 mL (0.083 %) solution for nebulization 2.5 mg inhalation Q4-6H PRN (Reason: shortness of breath or wheezing) Qty: 180 4RF Incruse Ellipta 62.5 mcg/actuation blister with device See Rx Instructions .ROUTE .COMPLEX Qty: 30 6RF Dose Instruction: INHALE 1 PUFF BY MOUTH EVERY 24 HOURS Rx Instructions: INHALE 1 PUFF BY MOUTH EVERY 24 HOURS atorvastatin 40 mg Tablet 40 mg PO DAILY 30 Days Qty: 30 11RF nitroglycerin [Nitrostat] 0.4 mg Tablet, Sublingual 0.4 mg sublingual Q5MIN PRN (Reason: Chest Pain) 30 Days Qty: 10 0RF mecobalamin (vitamin B12) 1,000 mcg tablet,chewable 1,000 mcg PO DAILY Qty: 30 3RF carbamazepine 200 mg tablet 200 mg PO BID Qty: 60 6RF Cholestyramine Light 4 gram powder 4 g PO BID Qty: 239.4 1RF Rx Instructions: administer w/meal; avoid other meds within 1hr before or 4-6hr after dose fenofibrate nanocrystallized 145 mg tablet 145 mg PO QAM Qty: 90 2RF albuterol sulfate 90 mcg/actuation HFA aerosol inhaler See Rx Instructions .ROUTE .COMPLEX Qty: 8.5 3RF Dose Instruction: USE 1 - 2 PUFF INHALED EVERY 4 - 6 HOURS NEEDED FOR SHORTNESS OF BREATH OR WHEEZING Rx Instructions: USE 1 - 2 PUFF INHALED EVERY 4 - 6 HOURS NEEDED FOR SHORTNESS OF BREATH OR WHEEZING indapamide 2.5 mg tablet 2.5 mg PO DAILY Qty: 90 3RF budesonide-formoterol [Symbicort] 160-4.5 mcg/actuation HFA aerosol inhaler See Rx Instructions .ROUTE .COMPLEX Qty: 10.2 5RF Dose Instruction: INHALE 2 PUFFS EVERY 12 HOURS RINSE MOUTH AND SPIT AFTER EACH USE Rx Instructions: INHALE 2 PUFFS EVERY 12 HOURS RINSE MOUTH AND SPIT AFTER EACH USE hydrocodone-acetaminophen 7.5-325 mg tablet 1 tablet PO Q8H PRN (Reason: pain ) Qty: 90 0RF valsartan 320 mg tablet See Rx Instructions .ROUTE .COMPLEX Qty: 30 12RF Dose Instruction: TAKE 1 TABLET BY MOUTH EVERY DAY Rx Instructions: TAKE 1 TABLET BY MOUTH EVERY DAY Follow-up/Referrals: Rodolfo Stewart MD [Primary Care Provider] - Time of Disposition: 07:01
[2025-02-07 05:50] LABS: Add Urine Microscopic? YES; Appearance Urine Clear (Clear); Glucose Urine UA Negative (Negative); Leukocyte Esterase Ur Negative LEU/UL (Negative); Nitrate Urine Negative (Negative); Specific Grav Ur 1.033 (1.001-1.035)
[2025-02-07 05:53] LABS: Hematocrit 42.8 % (42.0-52.0); Hemoglobin 14.4 g/dL (14.0-18.0); Immature Granulocyte Percent A 0.4 % (0-0.5); Lymphocytes Absolute Auto 2.38 K/mm3 (0.9-3.2); Mean Corpuscular HGB Conc 33.6 g/dl (32-36); Mean Corpuscular Hemoglobin 31.4 pg (26-34); Mean Corpuscular Volume 93.2 fl (80-100); Nucleated Red Blood Cells Absolute Auto 0.000 K/mm3 (0.0-0.012); Nucleated Red Blood Cells Perc 0.0 % (0.0-0.2); Platelet Count Result 224 k/mm3 (150-375); Red Blood Count 4.59 M/mm3 (4.6-6.20); White Blood Count 7.5 K/mm3 (4.5-10.0)
[2025-02-07] MEDS: HYDROmorphone HCL INJ (*CRX) 1 MG/ML SYR 0.5 MG IV PUSH (05:59)
== END 2025-02-07 07:25 | disposition home or self-care (01) ==
PROVIDERS: Physician Assistant; Emergency Provider Student in an Organized Health Care Education/Training Program; PCP Family Medicine Adolescent Medicine
DX: R10.9 Unspecified abdominal pain (principal); I25.2 Old myocardial infarction; I10 Essential (primary) hypertension; E78.00 Pure hypercholesterolemia, unspecified; E53.8 Deficiency of other specified B group vitamins; G62.9 Polyneuropathy, unspecified; Z86.19 Personal history of other infectious and parasitic diseases; Z87.01 Personal history of pneumonia (recurrent); F17.210 Nicotine dependence, cigarettes, uncomplicated; Z79.02 Long term (current) use of antithrombotics/antiplatelets; Z79.82 Long term (current) use of aspirin; Z79.899 Other long term (current) drug therapy
CPT/HCPCS: 36415; 74176; 80053; 81001; 83690; 85025; 87086; 96374; 96375; 99284; J1171; J2405